=== PATIENT | female | born 1980 | race Caucasian/White ===

== ENCOUNTER 2019-01-21 00:52 | Outpatient (CLI) | payer BC, SELFPAY ==
--- NOTE | 2019-01-21 09:31 | DI.RAD_ITS ---
SYMPTOM/DIAGNOSIS: DYSPHAGIA, R13.13 BARIUM SWALLOW: Fluoroscopy Time: 7 seconds The lateral computer patternmaker view of the neck shows some degenerative change at C 6-7. The PA and lateral chest drivers' cash clerk are unremarkable. The heart size is normal. The lungs are clear. The esophageal peristalsis is normal. Only a few swallows were administered. There is abrupt tapering of the distal esophagus, at the GE junction. Only a minimal amount of barium is seen to pass into the stomach. The findings could be secondary to a severe stricture, spasm or mass. IMPRESSION: Severe narrowing of the distal esophagus.
== END 2019-01-21 01:12 ==
PROVIDERS: PCP Internal Medicine; Visit Provider Internal Medicine
DX: R13.13 Dysphagia, pharyngeal phase (principal); K22.2 Esophageal obstruction
CPT/HCPCS: 74220; J3490

== ENCOUNTER 2019-02-02 12:04 | Day surgery (SDC) | payer BC, SELFPAY ==
--- NOTE | 2019-02-02 07:05 | ENDO_ITS ---
Date of service: 02/02/19 Time of Service: 13:43 Endoscopy Report DATE OF PROCEDURE: 02/02/19 PRE-OP DIAGNOSIS: Abnormal Barium and dysphagia POST-OP DIAGNOSIS: same PROCEDURE: EGD with dilatation SURGEON: Tiffanie Casillas ANESTHESIA: other (General/ ASA 2/Rafi Lanier, RESTORATIVE REHAB AIDE) ESTIMATED BLOOD LOSS: 0 PATHOLOGY: none sent COMPLICATIONS: None DISPOSITION: same day INDICATIONS: Mrs Cisneros is a pleasant 38-year-old female who was seen in the office for abdominal pain and a abnormal barium swallow which showed a stricture in the distal esophagus. Risks, benefits and complications have been reviewed. Complications include but are not limited to bleeding, pain, perforation, sore throat, aspiration, and adverse reaction to the medications. Questions were entertained and answered to their satisfaction and they wished to proceed. No guarantees were given or implied. FINDINGS: Normal appearing esophagus, stomach and duodenum. Tight lower esophageal sphincter with minimal if any peristalsis noted. ? Achalasia GE junction dilated to 20 mm to try and give her some relief temporarily until we can get the manometry done. PROCEDURE DESCRIPTION: After informed consent was obtained the patient was take to the procedure room and placed in a supine position. Monitors were applied and a time out was done. The patients name, date of , procedure type, allergies to medications and metal in their body was reviewed. A bite block was placed and the patient was sedated. Once sedated and comfortable the gastroscope was advanced through the oropharynx which was grossly normal into the esophagus. The proximal and mid- and distal esophagus were normal. There was minimal peristalsis noted and I had to wait a few seconds, applying light pressure with the scope for the GE junction to relax and the scope to be able to pass. The scope was advanced into the stomach and through the pylorus into the 3rd portion of the duodenum. The duodenum was noted to be normal. The scope was retracted back into the stomach and biopsies were done to rule out H. pylori. There were no ulcers. The scope was retro-flexed. The cardia and fundus were noted to be normal. The scope was retracted back into the esophagus and balloon dilatation of the esophagus was done up to 20 mm. The Z line was regular. The GE junction was at 35 cm. The scope was removed and the patient was woken up and taken back to [facility] in stable condition. Follow up: I discussed findings with patient. I will send her to [facility] for a manometry study. I am wondering if she has developed Achalasia.
--- NOTE | 2019-02-02 07:07 | W.PM.DSUDISC ---
Discharge Plan Disposition Patient Disposition: HOME Condition: Good Discharge Details Reason For Visit: DYSPHAGIA Attending Provider: Tiffanie Casillas Primary Care Provider: Anthony Gomez Home Meds and New Rx's Prescriptions: Continued pantoprazole 40 mg tablet,delayed release (DR/EC) 40 mg PO DAILY RF: 0 Mirena 20 mcg/24 hours (5 yrs) 52 mg intrauterine device 1 device IY ONCE RF: 0 metformin 500 mg tablet 500 mg PO DAILY RF: 0 No Action pantoprazole 40 mg tablet,delayed release (DR/EC) 40 mg PO DAILY RF: 0 Discharge Instructions Instructions: Upper Endoscopy (GEN) Additional Instructions: Findings: minimal relaxation of the muscle in the distal esophagus Follow up: after manometry study is done Please call if you develop: fevers >101.5 Nausea or Vomiting Abdominal pain that is not transient DAY SURGERY UNIT POST COLONOSCOPY INSTRUCTIONS 1. Because there will be medication in your system for the next 24 hours, you may feel a little sleepy. Your coordination will be affected. Therefore: a. Do not drive or operate dangerous equipment for 24 hours. b. Do not drink alcohol beverages for 24 hours (not even beer). c. Plan to go home and rest for the day. 2. Generally there are no restrictions on your activity after a day or so has gone by, but you may feel a bit fatigued for a few days. 3 After you arrive home you may have a light meal and return to a normal diet as you can tolerate it without feeling sick to your stomach. 4. After surgery, you may feel pain or discomfort. This should be only transient, but if it persists please contact your doctor. 5. If there are any questions regarding the findings of your procedure, please feel free to contact your doctor. 6. If you are unable to contact your doctor with a problem, contact the hospital at [phone]. 7. Continue all your regular medications unless directed otherwise. I understand the above instructions and have no questions. Signature of Patient or Responsible Adult Escort Date/Time Name of Responsible Adult Escort Signature of Nurse Date/Time Activity:: Activity as Tolerated Diet:: As Tolerated Discharge Orders Discharge Orders: Discharge Order (Routine); Ordered 02/02/19 Ordered By: Tiffanie Casillas DS: Diagnosis Discharge Diagnosis (1) H/O esophagogastroduodenoscopy:
[2019-02-02 12:31] VITALS: BP 125/81; PULSE 89; RESP 18; TEMP 36.6; O2SAT 99
[2019-02-02] MEDS: Lactated Ringers 1,000 ML 80 ML IV (12:49)
[2019-02-02 14:45] VITALS: BP 111/72; PULSE 74; RESP 18; TEMP 36.3; O2SAT 94
== END 2019-02-02 15:06 | disposition home or self-care (01) ==
LOC: SUR 12:04
PROVIDERS: PCP Internal Medicine; Visit Provider Surgery
PROC: 0DJ68ZZ Inspection of Stomach, Via Natural or Artificial Opening Endoscopic (ICD-10-PCS; CPT 43235; principal; 2019-02-02 13:30)
DX: R13.10 Dysphagia, unspecified (principal); R93.3 Abnormal findings on diagnostic imaging of other parts of digestive tract; K22.2 Esophageal obstruction; K21.9 Gastro-esophageal reflux disease without esophagitis
CPT/HCPCS: 43249; 81025

== ENCOUNTER 2019-04-06 10:05 | Day surgery (SDC) | payer BC, SELFPAY ==
[2019-04-06 10:27] VITALS: BP 128/89; PULSE 71; RESP 16; TEMP 36.5; O2SAT 100
[2019-04-06] MEDS: Lactated Ringers 1,000 ML 80 ML IV ×2 (10:48→14:20)
[2019-04-06] MEDS: ceFAZolin 2 GM/50 ML BAG IVPB (13:45)
--- NOTE | 2019-04-06 14:36 | PDOC.DSDIS_ITS ---
Discharge Plan Disposition Patient Disposition: HOME Condition: Good Discharge Details Reason For Visit: Carpal Tunnel Release R Attending Provider: Kelton Neal Primary Care Provider: Anthony Gomez Meds and New Rx's Prescriptions: New ibuprofen 600 mg tablet 600 mg PO Q6H PRN (Reason: pain) Qty: 20 RF: 0 No Action pantoprazole 40 mg tablet,delayed release (DR/EC) 40 mg PO DAILY RF: 0 Mirena 20 mcg/24 hours (5 yrs) 52 mg intrauterine device 1 device IY ONCE RF: 0 metformin 500 mg tablet 500 mg PO DAILY RF: 0 Discharge Instructions Additional Instructions: Elevate R hand above heart level as much as possible overnite tonite. Wiggle fingers R hand 10 times/hour, when awake, to prevent swelling. Keep dressings and splint dry and intact for 48 hours. After 48 hours, remove splint AND dressings and begin to move R wrist. May shower or bathe after you remove dressings in 48 hours. Leave incision uncovered when it is dry and sealed. May use R hand as much as your discomfort allows. Take ibuprofen for pain. Follow up with in 2 weeks. Referrals: Kelton Neal MD [ [facility] STAFF PHYSICIAN] - (f/u in 2 weeks.) Equipment/Supplies: Brace Activity:: Activity as Tolerated Remove Dressings/Wound Care:: 48 hours Shower/Bathe:: 48 hours Diet:: As Tolerated Discharge Orders Discharge Orders: Discharge Order (Routine); Ordered 04/06/19 Ordered By: Kelton Neal DS: Diagnosis Discharge Diagnosis (1) Right carpal tunnel syndrome: Status: Acute
[2019-04-06 14:41] VITALS: BP 119/63; PULSE 80; RESP 16; TEMP 36.9; O2SAT 98
[2019-04-06 14:45] VITALS: BP 120/61; PULSE 72; RESP 15; TEMP 36.9; O2SAT 95
[2019-04-06 14:50] VITALS: BP 118/62; PULSE 74; RESP 11; TEMP 36.9; O2SAT 96
[2019-04-06 15:42] VITALS: BP 125/82; PULSE 62; RESP 17; TEMP 36.3; O2SAT 99
--- NOTE | 2019-04-07 16:44 | ROE_ITS ---
DATE OF PROCEDURE: April 06, 2019 PREOPERATIVE DIAGNOSIS: Carpal tunnel syndrome, right. POSTOPERATIVE DIAGNOSIS: Same. PROCEDURE: Endoscopic carpal tunnel release on the right. ANESTHESIA: General, Pierce Quarles CRNA SURGEON: Kelton Neal M.D. INDICATIONS: This is a 39-year-old white female with a 9 to 10-year history of carpal tunnel syndrom e on the right. Her symptoms have progressed to the point where she's feeling numbness all of the ti me in her right hand. Findings were confirmed with nerve conduction studies. She has not gotten any benefit from night splinting. Carpal tunnel release was recommended to alleviate her pain and numbn ess in her right hand. The risks and complications of the procedure were explained to the patient in detail preoperatively. The patient wished to undergo the endoscopic technique of carpal tunnel rele ase. PROCEDURE: The patient was taken to the Operating Room on 04/06/19. She was placed supine on the op erating table and a general anesthetic was administered. A proximal tourniquet was applied to the [facility] upper arm and then the right hand, wrist and forearm were prepped and draped free in the usual st erile fashion. The right upper extremity was exsanguinated by elevation for two minutes and the tour niquet was inflated to 250 mmHg. An incision was made in line with the proximal flexion crease of th e wrist starting at the flexor carpi radialis tendon and extending to the flexor carpi ulnaris. The incision was carried down to the fascia. Subcutaneous veins were cauterized. A distally-based fasci al flap was then raised to gain access to the carpal canal. A synovial reflector was used to reflect tissue from the undersurface of the volar carpal ligament. A series of obturators were inserted to make room for the endoscope. The Amberly endoscope blade device was then inserted in the carpal canal. Care was taken to position the endoscope on the ulnar side of the canal against the hook of the gavino te. The endoscope was advanced until the distal edge of the volar carpal ligament was clearly visual ized. At this point the trigger was depressed, elevating the blade. The elevator blade was then bro ught from distal to proximal out through the incision, transecting the volar carpal ligament. Roro r scissors were then used to perform a subcutaneous fasciotomy two inches proximal from the incision. A median nerve block was performed with 0.5% Marcaine with an epinephrine solution and the wound ma rgins were infiltrated with 0.5% Marcaine with an epinephrine solution. The incisions were closed wi th two horizontal mattress sutures of #4-0 nylon suture material. The wound was dressed with Xerofor m gauze, sterile gauze 4x4's, wrapped with a 4-inch Kerlix bandage and then wrapped with a 3-inch STEVE bandage and then placed in a commercial cock-up wrist splint. The tourniquet was released. The pat ient's anesthesia was reversed without complications. She was discharged to the recovery room in goo d condition. The patient was discharged home from the Day Surgery Unit when fully recovered from her general anest hesia. She was given instructions to elevate her right hand above heart level as much as possible ov raul. She was encouraged to move her fingers of her right hand ten times an hour while awake to p revent stiffness and swelling. She is to keep the dressings and splint dry and intact for 48 hours. After 48 hours she is to remove the dressings and the splint and begin to move her right wrist. She may shower and get her incision wet after 48 hours. She can leave the incision uncovered when it is dry and sealed. She may use her right hand as much as discomfort allows. She does not desire to ta ke opioids; therefore she was advised to take ibuprofen 600 mg p.o. q6h prn for pain. She should fol low-up with me in two weeks.
== END 2019-04-06 15:58 | disposition home or self-care (01) ==
PROVIDERS: PCP Internal Medicine; Visit Provider Orthopaedic Surgery
PROC: 01N54ZZ Release Median Nerve, Percutaneous Endoscopic Approach (ICD-10-PCS; CPT 29848; principal; 2019-04-06 12:00)
DX: G56.01 Carpal tunnel syndrome, right upper limb (principal)
CPT/HCPCS: 29848; 81025; J0690; J2405; L3908

== ENCOUNTER 2019-12-25 02:56 | Outpatient (CLI) | payer BC, SELFPAY ==
--- NOTE | 2019-12-25 | DI.RAD_ITS ---
EXAM: XR FOOT LT COMPLETE CLINICAL HISTORY: FOOT PAIN LT, M79.672. TECHNIQUE: 2D digital imaging was performed. COMPARISON: No exams were available for comparison FINDINGS: BONES: No acute fracture is present. No bony destructive lesion is seen. There are tiny heel spurs JOINTS: No dislocation present. SOFT TISSUE: Normal. IMPRESSION: Unremarkable radiographs of the left foot. DATA REPOSITORY: RADIATION DOSE DELIVERED:
== END 2019-12-25 03:16 ==
PROVIDERS: PCP Internal Medicine; Visit Provider Internal Medicine
DX: M79.672 Pain in left foot (principal); M77.32 Calcaneal spur, left foot
CPT/HCPCS: 73630

== ENCOUNTER 2020-02-01 16:26 | Outpatient (REF) | payer BC, SELFPAY ==
[2020-02-01 20:48] LABS: HCT 45.1 % (36.0-46.0); HGB 14.9 g/dL (11.2-15.7); MCH 28.9 pg (27.0-33.0); MCV 87.6 fL (80-95); MPV 10.5 fL (8.0-11.0); Platelet Count 282 10^3/uL (130-400); RBC 5.15 10^6/uL (3.93-5.22); RDW 13.2 % (11.7-14.6); RDW-SD 42.6 fL; WBC 10.48 10^3/uL (4.4-10.8)
[2020-02-01 21:04] LABS: Anion Gap 13.6 mmol/L (3-11); BUN 14 mg/dL (7-18); CO2 22.4 mmol/L (21.0-32.0); CREATININE 1.05 mg/dL (0.55-1.02); Calcium 9.3 mg/dL (8.5-10.1); Calculated LDL 84 mg/dL (<100); Chloride 105 mmol/L (98-107); Cholesterol 160 mg/dL (<200); Estimated GFR 58.97 (mL/min/1.73m2); Glucose 92 mg/dL (74-106); HDL Cholesterol 43 mg/dL (40-60); Sodium 141 mmol/L (136-145); Triglyceride 165 mg/dL (<150)
== END 2020-02-01 16:46 ==
LOC: NCHCN 16:26
PROVIDERS: PCP Internal Medicine; Visit Provider Internal Medicine
DX: Z13.220 Encounter for screening for lipoid disorders (principal); Z01.812 Encounter for preprocedural laboratory examination
CPT/HCPCS: 80048; 80061; 85027

== ENCOUNTER 2020-08-23 16:13 | Outpatient (REF) | payer BC, SELFPAY ==
[2020-08-23 21:48] LABS: Anion Gap 13.6 mmol/L (3-11); BUN 16 mg/dL (7-18); CO2 23.4 mmol/L (21.0-32.0); CREATININE 0.9 mg/dL (0.55-1.02); Calcium 9.6 mg/dL (8.5-10.1); Chloride 102 mmol/L (98-107); Glucose 93 mg/dL (74-106); Potassium 4.5 mmol/L (3.5-5.1); Sodium 139 mmol/L (136-145)
== END 2020-08-23 16:14 | disposition home or self-care (01) ==
LOC: NCHCN 16:13
PROVIDERS: PCP Internal Medicine; Visit Provider Internal Medicine
DX: R42 Dizziness and giddiness (principal); K58.0 Irritable bowel syndrome with diarrhea; K22.0 Achalasia of cardia; E28.2 Polycystic ovarian syndrome
CPT/HCPCS: 80048

== ENCOUNTER 2021-02-10 16:45 | Outpatient (REF) | payer BC, SELFPAY ==
[2021-02-10 21:28] LABS: ESR 5 mm/hr (0-20)
[2021-02-10 21:34] LABS: ALT 27 U/L (14-59); AST 19 U/L (15-37); Albumin 4.5 g/dL (3.4-5.0); Alkaline Phosphatase 66 U/L (46-116); Anion Gap 9.6 mmol/L (3-11); BUN 14 mg/dL (7-18); Bilirubin, Total 0.8 mg/dL (0.2-1.0); CO2 26.4 mmol/L (21.0-32.0); CREATININE 0.9 mg/dL (0.55-1.02); Chloride 105 mmol/L (98-107); Creatine Kinase 116 U/L (26-192); Glucose 89 mg/dL (74-106); Potassium 4.2 mmol/L (3.5-5.1); Sodium 141 mmol/L (136-145); Total Protein 7.3 g/dL (6.4-8.2)
[2021-02-12 16:28] LABS: Rheumatoid Factor <8.6 IU/mL (<12.0)
[2021-02-13 10:36] LABS: Lyme Ab w Rflx to Lyme Confirm Negative (Negative)
[2021-02-14 00:01] LABS: Anaplasma phagocytophilum Negative (Negative); B. miyamotoi PCR Negative (Negative); Babesia divergens/MO-1 Negative (Negative); Babesia duncani Negative (Negative); Babesia microti Negative (Negative); Ehrlichia chaffeensis Negative (Negative); Ehrlichia ewingii/canis Negative (Negative); Ehrlichia muris eauclairensis Negative (Negative)
== END 2021-02-10 16:46 | disposition home or self-care (01) ==
LOC: NCHCN 16:45
PROVIDERS: PCP Internal Medicine; Visit Provider Family Medicine
DX: M79.10 Myalgia, unspecified site (principal); K58.0 Irritable bowel syndrome with diarrhea; E28.2 Polycystic ovarian syndrome; K22.0 Achalasia of cardia
CPT/HCPCS: 80053; 82550; 85652; 87798; 86431; 86618

== ENCOUNTER 2021-10-17 19:45 | Outpatient (REF) | payer BC, SELFPAY ==
[2021-10-17 15:01] LABS: Abs Immature Grans 0.02 10^3/uL (0.0-0.06); Absolute Basophil Count 0.05 10^3/uL (0.0-0.2); Absolute Eosinophil Count 0.27 10^3/uL (0.0-0.7); Absolute Lymphocyte Count 2.17 10^3/uL (1.2-3.4); Absolute Monocyte Count 0.45 10^3/uL (0.1-0.8); Absolute Neutrophil Count 4.41 10^3/uL (1.2-6.7); Basophils % 0.7; Eosinophils % 3.7; HCT 40.8 % (36.0-46.0); HGB 13.7 g/dL (11.2-15.7); Immature Grans % 0.3; Lymphocytes % 29.4; MCH 30.2 pg (27.0-33.0); MCHC 33.6 % (32.0-36.0); MCV 90 fL (80-95); MPV 10.4 fL (8.0-11.0); Monocytes % 6.1; Neutrophils % 59.8; Platelet Count 342 10^3/uL (130-400); RBC 4.54 10^6/uL (3.93-5.22); RDW 13.5 % (11.7-14.6); RDW-SD 44.4 fL; WBC 7.37 10^3/uL (4.4-10.8)
[2021-10-17 15:07] LABS: ALT 26 U/L (14-59); AST 24 U/L (15-37); Albumin 4.5 g/dL (3.4-5.0); Alkaline Phosphatase 56 U/L (46-116); Anion Gap 10.6 mmol/L (3-11); BUN 14 mg/dL (7-18); Bilirubin, Total 0.6 mg/dL (0.2-1.0); CO2 23.4 mmol/L (21.0-32.0); Calcium 9.2 mg/dL (8.5-10.1); Chloride 104 mmol/L (98-107); Glucose 84 mg/dL (74-106); Potassium 4.8 mmol/L (3.5-5.1); Sodium 138 mmol/L (136-145); Total Protein 7.2 g/dL (6.4-8.2)
[2021-10-17 15:10] LABS: ESR 5 mm/hr (0-20)
[2021-10-18 12:33] LABS: IgA 126 mg/dL (85-499); Interpretation (See Note); Tissue Transglutaminase IgA <1.2 U/mL (<4.0)
== END 2021-10-17 19:46 | disposition home or self-care (01) ==
LOC: NCHCN 19:45
PROVIDERS: PCP Internal Medicine; Visit Provider Family Medicine
DX: K52.9 Noninfective gastroenteritis and colitis, unspecified (principal); M79.7 Fibromyalgia
CPT/HCPCS: 80053; 82784; 83516; 85652; 87329; 87493; 83630; 83993; 85025; 87177

== ENCOUNTER 2021-10-19 08:17 | Outpatient (REF) | payer BC, SELFPAY ==
[2021-10-19 10:35] LABS: C Diff PCR Negative (Negative)
[2021-10-21 19:30] LABS: Calprotectin <50.0 mcg/g
== END 2021-10-19 08:18 | disposition home or self-care (01) ==
LOC: NCHCN 08:17
PROVIDERS: PCP Internal Medicine; Visit Provider Family Medicine
DX: K52.89 Other specified noninfective gastroenteritis and colitis (principal); M79.7 Fibromyalgia
CPT/HCPCS: 87329; 87493; 83630; 83993; 87177

== ENCOUNTER 2021-11-10 11:27 | Outpatient (REF) | payer BC, SELFPAY ==
--- NOTE | 2021-11-10 09:45 | SKI_PTH ---
PATIENT: Sugey Rodney I LOC: [facility]#:[id number] AGE/SX: 41/F ROOM: RE11/10/[address]: Sriram Lofton : 1980 BED: DIS: 11/10/2021 SPEC #: [id number] RECD: 11/10/21 15:51 STATUS: JOSIAS REQ #: [id number] SARINA: 11/10/21 09:[address]: Sriram Lofton DEPT: Surgical Specimen RECD BY: Jyoti Cardenas ENTERED: 11/10/21 15:51 SP TYPE: RICARDO MAC DR: Anthony Gomez Tissues: 1 - SKIN BIOPSY(SHAVE/PUNCH) Procedures: SKIN LEVEL 4 Comments: [id number]
--- OUTSIDE RECORDS SUMMARY | 2021-11-10 11:30 | XMS_ITS | Encounter Summary ---
:1980 Author Organization [facility] Address [address] [place] [address] Care Team Providers Name Role Phone Anthony Gomez MD Primary Care Provider Encounter Details Date Type Department Care Team Description 03/31/2020 Results Only [facility] - [facility] Christian Mendoza MD Lab - Main [place] [address] [facility] [address] [place] [address] [place], [place] [id number] [phone] Social History Tobacco Use Types Packs/Day Years Used Date Never Smoker Smokeless Tobacco: Never Used Alcohol Use Standard Drinks/Week Comments Never 0 (1 standard drink = 0.6 oz pure alcoho l) Alcohol Habits Answer Date Recorded How often do you have a drink containing alcohol? Never 03/03/2020 How many drinks containing alcohol do you have on a typical Not asked day when you are drinking? How often do you have six or more drinks on one occasion? No t asked Comment: Not asked Sex Assigned at Date Recorded Female 01/24/2020 16:07 EDT COVID-19 Exposure Response Date Recorded In the last month, have you been in contact with No / Unsure 03/03/2020 9:32 EDT someone who was confirmed or suspected to have Coronavirus / COVID-19? documented as of this encounter Functional Status Functional Status Response Date of Assessment Are you deaf or do you have serious difficulty hearing? No 03/03/2020 Are you blind or do you have serious difficulty seeing, No 03/03/2020 even when wearing glasses? Do you have serious difficulty walking or climbing No 03/03/2020 stairs? (5 years old or older) Do you have difficulty dressing or bathing? (5 years old No 03/03/2020 or older) Because of a physical, mental, or emotional condition, do No 03/03/2020 you have difficulty doing errands alone such as visiting a doctor's office or shopping? (15 years old or older) Cognitive Status Response Date of Assessment Because of a physical, mental, or emotional condition, do No 03/03/2020 you have serious difficulty concentrating, remembering, or making decisions? (5 years old or older) documented as of this encounter Plan of Treatment Not on filedocumented as of this encounter Procedures Procedure Name Priority Date/Time Associated Comments Diagnosis LIPASE - [facility] Routine 03/31/2020 18:10 Results fo r this EDT procedure are i n the results section. COMPLETE BLOOD COUNT Routine 03/31/2020 18:10 Res ults for this WITH DIFFERENTIAL EDT procedure are in (AUTO) the results section. COMPREHENSIVE Routine 03/31/2020 18:10 Results fo r this METABOLIC PANEL (CMP) EDT proced ure are in the results section. documented in this encounter Results LIPASE - [facility] (03/31/2020 18:10 EDT) Pathologist Sig nature LIPASE [facility] 89 <251 U/L [facility] Specimen Performing Organization Address City/State/ZIP Code Phon e Number [facility] [address] [place] [address] COMPREHENSIVE METABOLIC PANEL (CMP) (03/31/2020 18:10 EDT) ALBUMIN - [facility] 4.9 3.4 - 4.9 [facility] g/dL [facility] ALKALINE 107 38 - 126 U/L [facility] PHOSPHATASE [facility] BILIRUBIN TOTAL 0.7 0.2 - 1.3 [facility] mg/dL [facility] BUN - [facility] 11 10 - 26 mg/dL [facility] CALCIUM - [facility] 9.9 8.5 - 10.5 [facility] mg/dL [facility] Chloride 104 96 - 110 [facility] mmol/L [facility] CO2 Total 24 22 - 32 mEq/L [facility] CREATININE 0.79 0.52 - 1.04 [facility] mg/dL [facility] eGFR >60 [facility] Comment: [facility] Chronic renal impairment is defined as GFR <60 Multiply result by 1.210 for patients . eGFR calculated using the IDMS-traceable MDRD Study Equation. ??(effective 04/19/2014) Anion Gap 12 0 - 18 [facility] GLUCOSE - [facility] 87 70 - 100 [facility] mg/dL [facility] Potassium 4.1 3.5 - 5.0 [facility] mEq/L [facility] Sodium 140 136 - 145 [facility] mEq/L [facility] TOTAL PROTEIN - 7.7 6.2 - 8.2 [facility] gm/dL [facility] SGOT/AST - [facility] 24 14 - 36 U/L [facility] SGPT/ALT - [facility] 16 0 - 35 U/L [facility] Specimen Performing Organization Address City/State/ZIP Code Phon e Number [facility] [address] [place] [address] (ABNORMAL) COMPLETE BLOOD COUNT WITH DIFFERENTIAL (AUTO) (03/31/2020 18:10 EDT) Pathologist Sig nature Gran # 5.7 2.2 - 8.85 [facility] 10e3/uL [facility] BASO # - [facility] 0.07 0.01 - 0.11 [facility] 10e/uL [facility] BASO % - [facility] 1 0 - 2 % [facility] EOS # - [facility] 0.34 0.03 - 0.61 [facility] 10e3/ul [facility] EOS % - [facility] 4 0 - 5 % [facility] GRAN % - [facility] 57.8 40 - 80 % [facility] HEMATOCRIT - [facility] 45.4 (H) 34.9 - 44.4 % [facility] HEMOGLOBIN - [facility] 15.0 11.6 - 15.2 [facility] g/dl [facility] IG# - [facility] 0.03 0 - 0.7 10e3/uL [facility] IG% - [facility] 0.3 0 - 0.9 % [facility] LYMPH # - [facility] 3.1 1.09 - 3.3 [facility] 10e3/ul [facility] LYMPH% - [facility] 31.5 20 - 40 % [facility] MEAN CORPUSCULAR HGB 28.2 26.7 - 33.3 pg [facility] ME D - [facility] MEAN CORPUSCULAR HGB 33.0 32.1 - 35.9 [facility] CONC - [facility] g/dL [facility]ENTER [facility] MEAN CELL VOLUME - 85.3 81 - 98 fl [facility] MONO # - [facility] 0.6 0.1 - 0.8 [facility] 10e3/uL [facility] MONO% - [facility] 6.2 0 - 12 % [facility] PLATELET COUNT 299 141 - 377 [facility] 10e3/ul [facility] RED BLOOD COUNT - 5.32 (H) 3.86 - 5.04 [facility] 10e3/ul [facility] RED CELL DISTRI WIDTH 13.2 <14.7 % [facility] WHITE BLOOD COUNT - 9.8 4.0 - 12.4 [place] [id number]/[facility] Specimen Performing Organization Address City/State/ZIP Code Phon e Number [facility] [address] [place] [address] documented in this encounter Visit Diagnoses Not on filedocumented in this encounter Care Teams Marquetry Worker Relationship Specialty Start Date End Date Anthony Gomez MD PCP - General 03/10/19 [address] [place] [address] documented as of this encounter
--- OUTSIDE RECORDS SUMMARY | 2021-11-10 11:30 | XMS_ITS | Encounter Summary ---
:1980 Author Organization [facility] Address [address] [place] [address] Care Team Providers Name Role Phone Anthony Gomez MD Primary Care Provider Reason for Visit Reason Onset Date Comments Follow-up 04/01/2020 urgent follow up fro m ED last night Encounter Details Date Type Department Care Team Description 04/01/2020 Telephone [facility] - Olga Christian MD Follow-up (urgent [facility] [address] follow up from ED last [address], [address] night) [place] [address] [place], [place] [phone] Social History Tobacco Use Types Packs/Day Years [...] or older) documented as of this encounter Miscellaneous Notes Telephone Encounter - Lorraine Kaur RN - 04/01/2020 0907 EDT Pt was scheduled today at 11:00 elephone Encounter - Jie Christian MD - 04/01/2020 0901 EDT See if 11 works elephone Encounter - Lorraine Kaur RN - 04/01/2020 0852 EDT Jie, This pt should probably be seen today? Where in your/[facility] schedule should she be placed. elephone Encounter - Obdulia Martinez - 04/01/2020 0837 EDT Pt seen in the ED last night, was told to call us this AM for an URGENT appointment. She had a c.t. scan and her IUD has perforated her uterus documented in this encounter Plan of Treatment Not on filedocumented as of this encounter Visit Diagnoses Not on filedocumented in this encounter Care Teams Clerical Manager Relationship Specialty Start Date End Date Anthony Gomez MD PCP - General 03/10/19 [address] [place] [address] documented as of this encounter
--- OUTSIDE RECORDS SUMMARY | 2021-11-10 11:30 | XMS_ITS | Encounter Summary ---
:1980 Author Organization [facility] Address [address] [place] [address] Care Team Providers Name Role Phone Anthony Gomez MD Primary Care Provider Encounter Details Date Type Department Care Team Description 01/21/2020 Orders Only [facility] - Kali Osorio preprocedure screening [address] laboratory testing for [address] [place] [address] COVID-19 (Primary Dx) [place] [address] [facility] [phone] [address], [address] [place] [address] (Wo rk) Social History Tobacco Use Types Packs/Day Years Used Date Never Smoker Smokeless Tobacco: Never Used Alcohol Habits Answer Date Recorded How often do you have a drink containing alcohol? Never 03/03/2020 How many drinks containing alcohol do you have on a typical Not asked day when you are drinking? How often do you have six or more drinks on one occasion? No t asked Comment: Not asked Sex Assigned at Date Recorded Female 01/24/2020 16:07 EDT documented as of this encounter Functional Status Functional Status Response Date of Assessment Because of a physical, mental, or emotional condition, No 12/02/2014 does this person have difficulty doing errands alone such as visiting a doctor's office or shopping? Cognitive Status Response Date of Assessment Because of a physical, mental, or emotional condition, No 12/02/2014 does this person have serious difficulty concentrating, remembering, or making decisions? documented as of this encounter Plan of Treatment Not on filedocumented as of this encounter Visit Diagnoses Diagnosis Encounter for preprocedure screening lab oratory testing for COVID-19 - Primary documented in this encounter Care Teams Stock Sorter Relationship Specialty Start Date End Date Anthony Gomez MD PCP - General 03/10/19 [address] [place] [address] documented as of this encounter
--- OUTSIDE RECORDS SUMMARY | 2021-11-10 11:30 | XMS_ITS | Encounter Summary ---
:1980 Author Organization [facility] Address [address] [place] [address] Care Team Providers Name Role Phone Anthony Gomez MD Primary Care Provider Encounter Details Date Type Department Care Team Description 03/31/2020 Results Only Imaging [facility] - Basilio Mendoza, [facility] Radiology Resul ts [address] [facility] [address] [place], [place] [address] [place] [address] [phone] (Wo rk) Social History Tobacco Use Types [...] encounter Procedures Procedure Name Priority Date/Time Associated Diagnosis Comme nts EKG 12-LEAD 03/31/2020 20:21 Results for this EDT procedure are i n the results section. CT ABDOMEN PELVIS W 03/31/2020 19:41 Resu lts for this CONTRAST EDT procedure are i n the results section. documented in this encounter Results EKG 12-LEAD (03/31/2020 20:21 EDT) Specimen Narrative [facility] - 020 20:21 EDT ? [facility] ? Test Date: ?2020-03-31 20:21:21 Pat Name: ? SUGEY SOSA ? Department: ?Room: ? Gender: ? F ?Equipment Application Specialist: ?? AH : ?1980 ? Requested By: Order Number: ?Reading MD: ?? Efrain Bueno MD ? Measurements Intervals ?Center ? Rate: ? 72 ? P: ?39 NC: ? 154 ?QRS: ?2 QRSD: ? 82 ? T: ?7 QT: ? 404 ? QTc: ?442 ? Interpretive Statements Normal sinus rhythm Low voltage QRS Borderline ECG No previous ECG available for comparison Electronically Signed On 04-01-2020 8:45 :20 EDT by Efrain Bueno MD [email or web address] Procedure Note Efrain Bueno MD - 04/01/2020 [facility] Test Date: 2020-03-31 20:21:21 Pat Name: SUGEY SOSA Department: Room: Gender: F Equipment Application Specialist: MOHAMUD : 1980 Requested By: Order Number: Reading MD: Efrain Bueno MD Measurements Intervals Center Rate: 72 P: 39 NC: 154 QRS: 2 QRSD: 82 T: 7 QT: 404 QTc: 442 Interpretive Statements Normal sinus rhythm Low voltage QRS Borderline ECG No previous ECG available for comparison Electronically Signed On 04-01-2020 8:45 :20 EDT by Efrain Bueno MD [email or web address] Performing Organization Address City/State/ZIP Code Phon e Number [facility] [address] [place] [address] CT ABDOMEN PELVIS W CONTRAST (03/31/2020 19:41 EDT) Specimen Narrative [facility] - 03/31/2020 19:41 EDT ? AN ADDENDUM IS INCLUDED ON THIS REPORT ? ADDENDUM ? Results were personally conveyed to Christian Mendoza on03/31/2020 ? 8:47 PM EDT. ? ADDEND UM SIGNED IN OTHER VENDOR SYSTEM 03/31/2020 ?Reported B y: Elidia Ko MD ?Transcribe d: 03/31/2020 (2049) HIS.VRAD ?REPORT ? EXAM: CAT SCAN/ABDOMEN PELVIS WIT H CONTRA EX. D/ (1924) ? CLINICAL INFORMATION: ? severe sudden abd pain s/p heller myotomy ? PROCEDURE INFORMATION: ? Exam: CT Abdomen And Pelvis With Contrast ? Exam date and time: 03/31/2020 6: 47 PM ? Age: 40 years old ? Clinical indication: Other: Unkno wn; Prior surgery; Surgery ? type: Heller myotomy (gastric byp ass), x2, iud; ? Additional info: Severe sudden ab d pain S/P heller myotomy ? TECHNIQUE: ? Imaging protocol: Computed tomogr aphy of the abdomen and pelvis ? with intravenous contrast. ? Radiation optimization: All CT sc ans at this facility use at ? least one of these dose optimizat ion techniques: automated ? exposure control; mA and/or kV ad justment per patient size ? (includes targeted exams where do se is matched to clinical ? indication); or iterative reconst ruction. ? Contrast material: OMNI 350; Cont rast volume: 100 ml; Contrast ? route: INTRAVENOUS (IV); ? COMPARISON: ? US OB LEVEL 2 FOLLOW UP 09/30/2018 9:50 AM ? FINDINGS: ? Liver: Normal. No mass. ? Gallbladder and bile ducts: Beckie l. No calcified stones. No ? ductal dilation. ? Pancreas: Normal. No ductal dilat ion. ? Spleen: Normal. No splenomegaly. ? Adrenals: Normal. No mass. ? Kidneys and ureters: Bilateral we ll-defined tiny renal ? hypodensities likely represent cy sts. No hydronephrosis. ? Stomach and bowel: Prior Heller m yotomy. Air-fluid level noted ? within the stomach. No evidence o f small bowel obstruction or ? mucosal thickening. Fluid is pres ent throughout the colon. ? Appendix: The appendix is normal. ? Intraperitoneal space: Trace cul- de-sac free fluid. No evidence ? of intraperitoneal free air. ? Vasculature: Unremarkable. No abd ominal aortic aneurysm. ? Lymph nodes: Unremarkable. No enl arged lymph nodes. ? Urinary bladder: Unremarkable as visualized. ? PAGE 1 ? Ayala d Report ? (CONTINUED) ? AN ADDENDUM IS INC LUDED ON THIS REPORT ? Reproductive: Abnormal placement of the IUD with full-thickness ? posterior myometrial perforation by one horizontal arm. ? Bilateral ovaries are grossly nor mal. ? Bones/joints: Unremarkable. No ac [place] fracture. ? Soft tissues: Unremarkable. ? IMPRESSION: ? 1. Prior Heller myotomy. Air-flui d level noted within the ? stomach. ? 2. Fluid is present throughout th e colon compatible with ? nonspecific diarrheal process.. ? 3. Abnormal placement of the IUD with full-thickness posterior ? myometrial perforation by one hor izontal arm. ? REPORT SIGNED IN OTHER VENDOR SYSTEM 03/31/2020 ?Reported B y: Elidia oK MD ? CC: ? Transcribed Date/Time: 03/31/2020 (1940) ? Parts Classifier: ? Printed Date/Time: 03/31/2020 () ? PAGE 2 ? Ayala d Report ? Procedure Note Elidia Ko MD - 03/31/2020 AN ADDENDUM IS INCLUDED ON THIS REPO RT ADDENDUM Results were personally conveyed to Christian Crane on03/31/2020 8:47 PM EDT. ADDENDUM SIGNED IN OTHER VENDOR SYS TEM 03/31/2020 Reported By: Elidia Ko MD Transcribed: 03/31/2020 (2049) REPORT EXAM: CAT SCAN/ABDOMEN PELVIS WITH CONT RA EX. D/ (1923) CLINICAL INFORMATION: severe sudden abd pain s/p heller myoto my PROCEDURE INFORMATION: Exam: CT Abdomen And Pelvis With Contra st Exam date and time: 03/31/2020 6:47 PM Age: 40 years old Clinical indication: Other: Unknown; Pr ior surgery; Surgery type: Heller myotomy (gastric bypass), x2, iud; Additional info: Severe sudden abd pain S/P heller myotomy TECHNIQUE: Imaging protocol: Computed tomography o f the abdomen and pelvis with intravenous contrast. Radiation optimization: All CT scans at this facility use at least one of these dose optimization te chniques: automated exposure control; mA and/or kV adjustme nt per patient size (includes targeted exams where dose is matched to clinical indication); or iterative reconstructio n. Contrast material: OMNI 350; Contrast v olume: 100 ml; Contrast route: INTRAVENOUS (IV); COMPARISON: US OB LEVEL 2 FOLLOW UP 09/30/2018 9:50 AM FINDINGS: Liver: Normal. No mass. Gallbladder and bile ducts: Normal. No calcified stones. No ductal dilation. Pancreas: Normal. No ductal dilation. Spleen: Normal. No splenomegaly. Adrenals: Normal. No mass. Kidneys and ureters: Bilateral well-def ined tiny renal hypodensities likely represent cysts. N o hydronephrosis. Stomach and bowel: Prior Heller myotomy . Air-fluid level noted within the stomach. No evidence of smal l bowel obstruction or mucosal thickening. Fluid is present th roughout the colon. Appendix: The appendix is normal. Intraperitoneal space: Trace cul-de-sac free fluid. No evidence of intraperitoneal free air. Vasculature: Unremarkable. No abdominal aortic aneurysm. Lymph nodes: Unremarkable. No enlarged lymph nodes. Urinary bladder: Unremarkable as visual ized. PAGE 1 Signed Report (CONTINUED) AN ADDENDUM IS INCLUDED ON THIS REPO RT Reproductive: Abnormal placement of the IUD with full-thickness posterior myometrial perforation by one horizontal arm. Bilateral ovaries are grossly normal. Bones/joints: Unremarkable. No acute fr acture. Soft tissues: Unremarkable. IMPRESSION: 1. Prior Heller myotomy. Air-fluid leve l noted within the stomach. 2. Fluid is present throughout the colo n compatible with nonspecific diarrheal process.. 3. Abnormal placement of the IUD with f ull-thickness posterior myometrial perforation by one horizonta l arm. REPORT SIGNED IN OTHER VENDOR SYSTEM 03/31/2020 Reported By: Elidia Ko MD CC: Transcribed Date/Time: 03/31/2020 (1940 ) Parts Classifier: Printed Date/Time: 03/31/2020 (2050) PAGE 2 Signed Report Performing Organization Address City/State/ZIP Code Phon e Number [facility] documented in this encounter Visit Diagnoses Not on filedocumented in this encounter Care Teams Enterprise Account Executive Relationship Specialty Start Date End Date Anthony Gomez MD PCP - General 03/10/19 [address] [place] [address] documented as of this encounter
--- OUTSIDE RECORDS SUMMARY | 2021-11-10 11:30 | XMS_ITS | Encounter Summary ---
:1980 Author Organization [facility] Address [address] [place] [address] Care Team Providers Name Role Phone Anthony Gomez MD Primary Care Provider Encounter Details Date Type Department Care Team Description 02/25/2020 Hospital Encounter [facility] Pre-Surgical Testing [address] [place] [address] Anesthesia Record Procedure Summary Procedure Name Responsible Anesthesia Start Anesthesia Stop Anesthesiologist Time Time Laparoscopic Princess Head MD 03/03/20 1137 0 1625 myotomy (N/A Abdomen) Events Date Time Event Comment 03/03/2020 1137 An Start The patient was re-evaluated immediately before moderate or deep sedation use, before anesthesia induction, or be fore the anesthesia procedure. 1139 An Start Data 1143 An Induction The patient was reevaluated immediately before moderate or deep sedation use and before anesthesia induction. 1149 An Intubation 1154 Raul Sustained desatu ration following intubation. Breaths sounds bilateral . Pulse ox switched from left to right hand. Mult iple recruitment breaths delivered at high flow 100 % oxygen. OG tube passed and suctioned with e ventual recovery. 1159 Anesthesia Ready 1159 IV Placed 1523 Primary Handoff Primary Anesthes ia Provider relieved. Anesthesia care handoff inv olved joint review of the surgical site and planned procedure, significant past medical history, intraop erative course including but not limited to airwa y management, anesthetic maintenance, mon itors, IV access, fluid management, and postoperativ e plan. 1611 An Extubation 1611 Raul Spontaneous vent ilation resumed Neuromuscular blockade reverse d Full TOF and sustained tetanus Oral pharynx suc tioned Extubated awake at end inspiration Oral pharynx suctioned immediately after extubation O2 by facemask transitioned to nasal canula HOB eleva flora O2 for transport to receiving unit Stable for transport ETT noted to be filled with thick green / yellow secretions. president + publisher aware, will monitor postop. 1620 an stop data 1625 Handoff to RN I completed my h andoff to the receiving nurse during which we: 1. Karthikeyan ntified the patient 2. Identified the responsible provider 3. Reviewed the pertinent medical history 4. Discussed the surgical course 5. Reviewed intra-o p anesthesia management and issues during anesthesi a 6. Set expectations for post-procedure p eriod 7. Allowed opportunity for questions and ac knowledgement of understanding. 1625 An Stop No medications on file. Agents No agents on file. Blood No blood administrations on file. Lines, Drains, and Airways Type Details Placement Removal Wound 03/03/20; 1300; Incision; 03/03/20 1300 by Abdomen; 5 Laproscopic Cehlsey Daniel RN Port Sites; N; Full thickness Peripheral IV 03/03/20; 1040; 20; 1.25; 03/03/20 1040 by 03/04 1003 by Protect IV Plus; Left, Jeanine Montemayor RN Sharpe, Jamie, RN Posterior; Forearm; Documenting on behalf of someone else (enter name) (Cortney Ureña RN); 1; Intradermal, 1% Lido; 3.15% Chlorhexidine with IPA; 03/04/20; 1003; Discharged; No complications, Catheter intact, Dressing applied Peripheral IV 03/03/20; 1112; 20; Bard 03/03/20 1112 by 1116 by Power [place]; Right; Jadyn Morales, Ramona Chew, RN Antecubital; Inserted by RN; 2 (Johnson Novak RN); 3.15% Chlorhexidine with IPA; 03/03/20; 1116 Peripheral IV 03/03/20; 1159 (created 03/03/20 1159 by Jack, 1002 by via procedure MD Andi Anthony Jamie , funeral car chauffeur); 18; Right; Hand; wrist; In OR by ; (first attempt in right hand); (under general anesthesia); 03/04/20; 1002; Discharged; No complications, Catheter intact, Dressing applied Urethral Catheter 03/03/20; 1200; Inserted 03/03/20 1200 by 02/15 01/03 1606 by by RN; Selected surgical Erin Hendricks RN Wa goner, Brittany, procedures/Epidural; RN Non-latex, Double-lumen; 16 fr; 10 ml; Yes; 03/03/20; 1606 Non-Surgical Airway 03/03/20; 1244 (created 03/03/20 1244 by Jack , 03/03/20 1611 by via procedure MD Marlen Anthony Don W, documentation); 03/03/20; ENVIRONMENTAL SYSTEMS COORDINATOR 1611 documented in this encounter Social History Tobacco Use Types Packs/Day Years [...] 16:07 EDT documented as of this encounter Last Filed Vital Signs Vital Sign Reading Time Taken Comments Blood Pressure - - Pulse - - Temperature - - Respiratory Rate - - Oxygen Saturation - - Inhaled Oxygen Concentration - - Weight 97.2 kg (214 lb 3.9 oz) 02/25/2020 1339 EDT Height 167.9 cm (5' 6.1) 02/25/2020 1339 EDT Body Mass Index 34.48 02/25/2020 1339 EDT documented in this encounter Functional Status Functional Status Response [...] making decisions? documented as of this encounter Medications at Time of Discharge Medication Sig Dispensed Refills Start Date End Date acetaminophen (TYLENOL) Take 20.3 mL by mouth 0 0 03/04/2020 325 mg/10.15 mL solution every 4 hours as needed for Pain. ibuprofen (ADVIL;MOTRIN) Take 20 mL by mouth 0 100 mg/5 mL suspension every 6 hours. ondansetron (ZOFRAN-ODT) Take 1 Tab by mouth 15 Tab 2 4 mg disintegrating every 8 hours as tablet needed for Nausea. levonorgestrel (MIRENA) 1 Each by 0 1 20 mcg/24 hours (5 yrs) intrauterine route 52 mg IUD once. nitroGLYCERIN Place 0.4 mg under 0 (NITROSTAT) 0.4 mg SL the tongue every 5 tablet minutes. For achalasia oxyCODONE (ROXICODONE) 5 Take 5 mL by mouth 60 mL 0 04/01/2020 mg/5 mL solution every 6 hours as needed for Pain. Daily Max: 20 mg documented as of this encounter Discharge Disposition Disposition Code Departure Means Destination Home or Self Care documented in this encounter Progress Notes Josette Novak RN - 02/25/2020 1340 EDT COVID 19 Screening Perioperative at time of PAT Please document by exception (only check those that apply). Have you had any of the following symptoms recently? no Yes Chronic ? Cough Shortness of breath or difficulty breathing Fever Chills Fatigue Muscle or body aches Severe Headache New loss of taste or smell Sore throat Congestion or runny nose Rash Nausea, vomiting, or diarrhea (rare in adults. More common in children) Please elaborate if yes: If a chronic symptom is reported use your judgement if an anesthesia review is needed. Have you been in close contact with someone who has been diagnosed with Covid 19? no (close contact, within 6 feet of any person known to have Coronavirus in the past 14 days) If past COVID + test results in chart: ??? Complete call, Place for Anesthesia Review ??? Do not give COVID+ DOS arrival instructions unless anes review deems necessary Negative COVID screen: Please file negative COVID screening under a progress note Negative screening is no symptoms or patient reporting a chronic symptom that does not need an anesthesia review Positive COVID screen: Patient answers yes to the question(s) and it is not a chronic symptom RN to flag this chart for anesthesia review and complete call Please file positive COVID screening under a PAT note If patient develops any of these symptoms between now and their surgery date instruct them to call us back at [phone] to report symptoms (If patient is in Surgical Admissions and answers yes, please notify Surgery and Anesthesia team). Follow proper precautions- yellow mask to patient/family. [place]: Visitor Policy: OP- one non-sick escort in waiting room, no visitors/escort in PreOp, one visitor in PACU for 10 mins at end of recovery Exceptions: Child-1 parent, special needs- 1 caregiver For safety concerns on ride home: second parent or caregiver may come to hospital but will have to wait in cell phone lot IP- One non-sick visitor/escort in waiting room, no visitors/escort in PreOp, one visitor in PACU for 10 mins at end of recovery. One designated visitor is allowed to visit the patient on the in patient unit. Pediatric patient: ??? Both parents can come with child DOS, one is allowed with child in PreOp/PACU, one has to wait in the waiting room ??? Due to COVID 19 no parents are allowed to go back to OR. ??? Explain IV/Mask induction. IV or mask will be available for pedi patients who are asymptomatic and test COVID negative. ??? If parent declines or no test results, Pt will get IV in PreOp, except PE tubes. For State tracking purposes, the parents of these children will be asked to consent to having their child COVID tested under anesthesia. ??? Unsedated children will be allowed one parents in the OR room for support. ??? RN to provide education on IV's and request Emla to be placed (RX from PCP) prior to coming in with them. ? ? Patient > 1 yo: Emla takes one hour to work, place quarter size amount on 4 places ? top ofhands and inner elbow, cover with tegaderm or saran wrap. Children under age of 16 y.o. are not permitted. Only ADA service animals are permitted into the hospital. All other animals, including previously approved therapy/support animals, are not allowed at this time. (No animals will be allowed into Preop,OR, or PACU) Visitor Policy Solange German: - One non-sick escort/visitor in waiting room, no visitors/escort in PeriOp - Same exceptions apply as main campus: children and special needs - Visitors/rides home that are not in waiting room should be within 15 mins away - Visitors must have mask for pickup documented in this encounter OR Notes Preprocedure Instructions - Josette Novak RN - 02/25/2020 1340 EDT Sugey Jackson Amelia has been instructed as follows regarding medication administration for the day of the scheduled procedure. Date of Surgery: 03/03/20 Instructions for Taking Medications Day of Surgery Medication Sig Last Dose Hold DOS Take DOS levonorgestrel (MIRENA) 20 mcg/24 hours (5 yrs) 52 mg IUD 1 Each by intrauterine route once. Yes nitroGLYCERIN (NITROSTAT) 0.[address] 0.4 mg under the tongue every 5 minutes. For achalasia Yes documented in this encounter Miscellaneous Notes PAT Note - Princess Cortes MD - 02/25/2020 1340 EDT Pt reports bad reaction to gen anes in the past. Last surgery was Mar 2019. Higher doses of medication was needed, didn't last as long. Pt gets fever, chills, pain, bruising for1 wk post op. S/s start 2-4 days post op. Surgery was a carpal tunnel release under general per Pt at [facility]. Pt reports this happens to her sister as well. Pt reports with epidural: medication dosing needed to be doubled, Pt reports still feeling everything and then needed to be put to sleep. October 2018 ++++++++++++++++++++++ Patient chart reviewed. 40 year old female with a history of achalasia, anxiety, back pain, polycystic ovarian syndrome, and obesity who presents for laparoscopic heller myotomy. Patient reports increased anesthetic requirements with prior procedures (carpel tunnel under GA and epidural requiring conversion to general). Unclear from the note what her bad reaction was; will require further investigation on the day of surgery. Anesthesia records from [facility] will be requested. No additional testing is necessary at this time. Standard perioperative COVID testing. Final anesthesia plan to be determined by the anesthesia team on the day of surgery. Princess Cortes MD documented in this encounter Plan of Treatment Not on filedocumented as of this encounter Visit Diagnoses Not on filedocumented in this encounter Discontinued Medications Medication Sig Discontinue Reason Start Date End Date METFORMIN HCL (METFORMIN Take 500 mg by Therapy completed 02/25/2020 ORAL) mouth 2 times daily. traMADol (ULTRAM) 50 mg Take 1 Tab by Therapy completed 10/28/2014 02/25/2020 tablet mouth every 6 hours as needed for Pain Daily Max: 200 mg spironolactone (ALDACTONE) Take 50 mg by Therapy completed 02/25/2020 50 mg tablet mouth daily pantoprazole (PROTONIX) 40 Take 40 mg by Therapy completed 02/25/2020 mg tablet mouth 2 times daily. documented as of this encounter Historical Medications This list may reflect changes made after this encounter. Medication Sig Dispensed Refills Start Date End Date nitroGLYCERIN (NITROSTAT) Place 0.4 mg under 0 03/04/2020 0.4 mg SL tablet the tongue every 5 minutes. For achalasia added in this encounter Care Teams Edge Baster Relationship Specialty Start Date End Date Anthony Gomez MD PCP - General 03/10/19 [address] [place] [address] documented as of this encounter
--- OUTSIDE RECORDS SUMMARY | 2021-11-10 11:30 | XMS_ITS | Encounter Summary ---
:[address] [facility] Address [address] [place] [address] Care Team Providers Name Role Phone Anthony Gomez MD Primary Care Provider Encounter Details Date Type Department Care Team Description 02/28/[address] [facility] Anthony Gomez MD Lab - [place] [address] [place] [address] [place], [place] [id number] [phone] Social History Tobacco Use Types Packs/Day Years [...] Name Priority Date/Time Associated Diagnosis Comme nts COVID-19 TESTING Routine 02/28/2020 10:15 EDT Res ults for this procedure are i n the results section. documented in this encounter Results COVID-19 TESTING (02/28/2020 10:15 EDT) Performing Lab [place] [facility] () [facility] Comment: [facility] Please indicate the Triage Tier2 Test performed or referred by The [address], [place] [address] COVID-19 rt-PCR Not Detected Negative [facility] Result Comment: [facility] This test has not been FDA cleared or approved. This t est has been authorized by FDA under an EUA for use by authorized laboratories. This test has been authorized only for detection of nucleic acid from 2019-nCoV, not for any other viruses or pathogens. This test is only authoriz ed for the duration of the declaration that circumstances exist justifying the authorization of emergency use of in vitro diagnostic tests for detection and/or diagnosis of 2019-nCoV under section 564(b)(1) of Act, 21 U.S.C ? 360bbb-3(b) (1), unless the authorization is terminate d or revoked sooner. Negative results do not preclude 2019-nCoV infection a nd should not be used as the sole basis for treatment or other patient management decisions. Negative results must be combined with clinical observations, patient history, and epidemiological information. Performed on the [employer] Fusion instrument Specimen Performing Organization Address City/State/ZIP Code Phon e Number [facility] [address] [place] [address] documented in this encounter Visit Diagnoses Not on filedocumented in this encounter Care Teams Microfabrication Engineer Manager Relationship Specialty Start Date End Date Anthony Gomez MD PCP - General 03/10/19 [address] [place] [address] documented as of this encounter
--- OUTSIDE RECORDS SUMMARY | 2021-11-10 11:30 | XMS_ITS | Encounter Summary ---
:1980 Author Organization [facility] Address [address] [place] [address] Care Team Providers Name Role Phone Anthony Gomez MD Primary Care Provider Encounter Details Date Type Department Care Team Description 10/17/2021 Lab Requisition [facility] Outr Resulting Lab, Pathology & Laboratory Provider [facility] [address], [place] [id number] Social History Tobacco Use Types Packs/Day Years [...] Name Priority Date/Time Associated Diagnosis Comme nts CELIAC DISEASE Routine 10/17/2021 12:08 Results f or this PANEL EDT procedure are i n the results section. documented in this encounter Results CELIAC DISEASE PANEL (10/17/2021 12:08 EDT) Tissue <1.2 <4.0 U/mL [facility] Transglutaminase Comment: CENTER Antibody IGA A negative result may be due to IgA deficiency and does not rule out celiac disease. LABORATORY SERVICES ? Negative: ??<4.0 U/mL ? Weak Positive: ??4.0 - 10.0 U/mL ? Positive: ??>10.0 U/mL Results were obtained with StudyRoomA Lite R h-tTG IgA FINA assay on the View2Gether DSX. IgA 126 85 - 499 [facility] mg/dL [facility] Celiac Disease Negative Serology. [facility] Interpretation Celiac disease CENTER unlikely. LABORATORY Approximately 10% of SERVICES patients with celiac disease are seronegative. Patients who are already adhering to a gluten-free diet may also be seronegative. If celiac disease is highly clinically suspected, referral to gastroenterology for additional evaluation is recommended. Specimen Blood - Venous blood (substance) Performing Organization Address City/State/ZIP Code Phon e Number [facility] [address] [place] [address] SERVICES documented in this encounter Visit Diagnoses Not on filedocumented in this encounter Care Teams Political Anthropologist Relationship Specialty Start Date End Date Anthony Gomez MD PCP - General 03/10/19 [address] [place], [place] [id number] documented as of this encounter
--- OUTSIDE RECORDS SUMMARY | 2021-11-10 11:30 | XMS_ITS | Encounter Summary ---
:[address] [facility] Address [address] [place] [address] Care Team Providers Name Role Phone Anthony Gomez MD Primary Care Provider Encounter Details Date Type Department Care Team Description 02/29/2020 Travel Social History Tobacco Use Types Packs/Day Years [...] been in contact with No / Unsure 02/29/2020 11:17 EDT someone who was confirmed or suspected [...] on filedocumented in this encounter Care Teams Packaging Manager Relationship Specialty Start Date End Date Anthony Gomez MD PCP - General 03/10/19 [address] [place] [address] documented as of this encounter
--- OUTSIDE RECORDS SUMMARY | 2021-11-10 11:30 | XMS_ITS | Encounter Summary ---
:1980 Author Organization [facility] Address [address] [place] [id number] Care Team Providers Name Role Phone Anthony Gomez MD Primary Care Provider Reason for Visit Reason Onset Date Comments COVID-19 02/16/2020 Encounter Details Date Type Department Care Team Description 02/16/2020 Telephone [facility] - [address] COVID-19 PAUL Osorio MD [id number] [place] [address], [facility] [address] [place], [place] [phone] (Wo rk) Social History Tobacco Use Types [...] making decisions? documented as of this encounter Miscellaneous Notes Telephone Encounter - Tosin Engel - 02/16/2020 195 EDT Patient scheduled at [facility] on 02/27 @ 10:30am documented in this encounter Plan of Treatment Not on filedocumented as of this encounter Visit Diagnoses Not on filedocumented in this encounter Care Teams Pillowcase Cleaner Relationship Specialty Start Date End Date Anthony Gomez MD PCP - General 03/10/19 [address] [place] [address] documented as of this encounter
--- OUTSIDE RECORDS SUMMARY | 2021-11-10 11:30 | XMS_ITS | Encounter Summary ---
:1980 Author Organization [facility] Address [address] [place] [address] Care Team Providers Name Role Phone Anthony Gomez MD Primary Care Provider Reason for Referral (Routine) - Receiving Office to Obtain Authorization Specialty Diagnoses / Procedures Referred By Contact Eloisa gloria To Contact Krystyna Alcantar NP [address] [phone] Referral ID Status Reason Start Expiration Visits Visits Date Date Requested Authorized [id number] Receiving Office Specialty 1 1 to Obtain Services 0 Authorization Required Comments Please call the General Surgery clinic a t [phone] if you have any questions or concerns. Please keep your scheduled colton ointment with Dr. Booth in 1 month. (Routine) - Receiving Office to Obtain Authorization Specialty Diagnoses / Procedures Referred By Contact Eloisa gloria To Contact Krystyna Alcantar NP [address] [phone] Referral ID Status Reason Start Expiration Visits Visits Date Date Requested Authorized [id number] Receiving Office Specialty 1 1 to Obtain Services 0 Authorization Required Comments Chest pain (angina) Dizziness or fainting Decreased urine output Fever greater than 101 or chills Inability to swallow or increasing diffi culty swallowing Increased or new pain Nausea or vomiting Pain unrelieved by medication Severe or increasing headache Shortness of breath or rapid breathing Skin rash Signs of infection such as pain, redness , swelling or drainage at procedure or wound site Swelling in your legs (Routine) - Receiving Office to Obtain Authorization Specialty Diagnoses / Procedures Referred By Contact Refer juani To Contact Krystyna Alcantar, JUMA [address] [phone] Referral ID Status Reason Start Expiration Visits Visits Date Date Requested Authorized [id number] Receiving Office Specialty 1 1 to Obtain Services 0 Authorization Required Comments We are currently collecting quality data on patients having surgery. You may receive a phone call, email, and/or letter about your surgery asking you a series of follow up questions to evaluate specifics aspec ts of your care. Thank you for your participation. Reason for Visit Auth/Cert Specialty Diagnoses / Procedures Referred By Contact Refer red To Contact Diagnoses Achalasia Procedures GA LAP, ESOPHAGOMYOTOMY W FUNDOPLASTY Laparoscopic heller myotomy Referral ID Status Reason Start Date Expiration Date Visits Requ ested Visits Authorized [id number] 1 1 Encounter Details Date Type Department Care Team Description 03/03/2020 - Hospital Encounter [facility] TicoBhaskar daniel 03/04/2020 General Surgery Unit MD Devon [address] [phone] [address] (Wo rk) Social History Tobacco Use [...] / COVID-19? documented as of this encounter Last Filed Vital Signs Vital Sign Reading Time Taken Comments Blood Pressure 107/61 03/04/2020933 EDT Pulse - - Temperature 36.4 ??C (97.5 ??F) 03/04/2020933 EDT Respiratory Rate 16 03/04/2020933 EDT Oxygen Saturation 96% 03/04/2020933 EDT Inhaled Oxygen Concentration - - Weight 95.5 kg (210 lb 8.6 oz) 03/03/20202009 EDT Height 167.9 cm (5' 6.1) 03/03/20202009 EDT Body Mass Index 33.88 03/03/20202009 EDT documented in this encounter Functional Status [...] or older) documented as of this encounter Discharge Summaries Krystyna Alcantar APRN - 03/04/2020 0934 EDT Surgery Discharge Summary Primary Care Provider: Anthony Gomez Attending Physician: Bhaskar Booth* Admit Date: 03/03/2020 Discharge Date: 03/04/2020 Disposition: Home or self care Problems and Procedures Admitting Diagnosis: Achalasia Principal/Final Diagnosis: Achalasia Additional Problems Managed in the Hospital Active Hospital Problems Diagnosis Date Noted ??? *Achalasia 01/02/2020 Resolved Hospital Problems No resolved problems to display. Principal Procedure: Laparoscopic heller myotomy Date: 03/03/2020 Secondary Procedures: none Hospital Course Sugey Cisneros was evaluated in the General Surgery clinic for a history of achalasia and was admitted on the day of surgery when an elective laparoscopic heller myotomy was performed without complication. She was recovered in PACU and transferred to the surgical floor for postoperative monitoring. She had baseline return of urinary function. She remained hemodynamically stable and her pain was well managed throughout her stay. Her diet was advanced to full liquids which she tolerated. She was discharged home to follow up in our clinic. Allergies and Immunizations Allergies Allergen Reactions ??? Sulfa (Sulfonamide Antibiotics) Shortness Of Breath ??? Morphine Rash Causes a rash and it is not effective for pain relief. ??? Penicillins Rash There is no immunization history on file for this patient. Transition of Care Plans Condition at Discharge Good Assessment at Discharge Vital signs: Patient Vitals for the past 12 hrs: BP Heart Rate Resp Temp SpO2 O2 Flow Rate (L/min) O2 Device 03/04/20 0602 122/53 59 BPM 16 36.3 ??C (97.3 ??F) 95 % ??? None 03/04/20 0136 115/63 ??? 18 ? 03/04/20 0133 ??? 68 BPM ??? 37 ??C (98.6 ??F) 92 % ? 03/03/20 2315 ? 0 l/min None Results Pending at Discharge Test results still pending from this admission None Relevant Studies at Discharge None Last Lab Results at Discharge BUN: Lab Results Component Value Date BUN 11 02/24/2018 Creatinine: Lab Results Component Value Date CREATININE 0.74 02/24/2018 CBC: Lab Results Component Value Date RBC 2.98 (L) 10/20/2018 HGB 8.8 (L) 10/20/2018 MCV 90.3 10/20/2018 MCH 29.5 10/20/2018 MCHC 32.7 10/20/2018 PLT 178 10/20/2018 Discharge Follow Up Future Appointments Date Time Provider Department Center 04/04/2020 10:30 Bhaskar Booth MD MP5 Gen Surg None Krystyna Alcantar, SORAIDA 03/04/2020 9:35 documented in this encounter Medications at Time of Discharge [...] yrs) intrauterine route 52 mg IUD once. oxyCODONE (ROXICODONE) 5 Take 5 mL by mouth 60 mL 0 04/01/2020 mg/5 mL solution every 6 hours as needed for Pain. Daily Max: 20 mg documented as of this encounter Ordered Prescriptions Prescription Sig Dispensed Refills Start Date End Date ondansetron (ZOFRAN-ODT) 4 Take 1 Tab by 15 Tab 2 2019 mg disintegrating tablet mouth every 8 hours as needed for Nausea. ibuprofen (ADVIL;MOTRIN) Take 20 mL by 0 03/04/20 20 100 mg/5 mL suspension mouth every 6 hours. acetaminophen (TYLENOL) 325 Take 20.3 mL by 0 mg/10.15 mL solution mouth every 4 hours as needed for Pain. oxyCODONE (ROXICODONE) 5 Take 5 mL by mouth 60 mL 0 04/01/2020 mg/5 mL solution every 6 hours as needed for Pain. Daily Max: 20 mg documented in this encounter Discharge Disposition Disposition Code Departure Means Destination Home or Self [facility]itent[facility] documented in this encounter Progress Notes Bekah Figueroa - 03/04/2020 1013 EDT Pt was discharged home to self care prior to home risk assessment. CM reviewed the patient's chart, face sheet and nursing documentation (and has discussed the patient's situation with the medical team). No CM dc needs were identified. Jie Figueroa RN [facility] [id number]ura, Bhaskar Osorio MD - 03/04/2020 0750 EDT Surgery Progress Note Service Date: 03/04/2020 Admit Date: 03/03/2020 9:34 POD: 1 (03/03/2020) Procedure: Laparoscopic heller myotomy Chief Complaint: Achalasia Subjective/Objective Subjective Had some nausea overnight, but resolved now after some Zofran. Pain is minimal. Denies fevers/chills/CP/SOB. Objective Vital Signs Temp: [35.7 ??C (96.3 ??F)-37.4 ??C (99.3 ??F)] , Heart Rate: [59 BPM-75 BPM] , Pulse: --, Pulse From Oximetry: [64 BPM-78 BPM] , Resp: [10-26] , BP: (115-147)/(53-80) , SpO2: [92 %-100 %] Physical Exam General Appearance: alert, cooperative, no distress Lung: clear to auscultation bilaterally Heart: regular rate and rhythm Abdomen: Soft ND, NT, lap incisions closed with Dermabond C/D/I Extremities: Warm and well perfused, no edema Skin: Skin color, temperature, turgor normal. No rashes or lesions Assessment/Plan Assessment 40 y.o. female with history of achalasia now POD#1 s/p laparoscopic heller myotomy. Convalescing appropriately. Plan Principal Problem: Achalasia - Advance to full liquids - give patient pamphlet regarding diet advancement - Pain ctrl: Liquid oxy, Tylenol, ibuprofen - OOB, AAT no heavy lifting no strenuous exercise - PPX: SCDs; ambulate; LVX 40 hs - Dispo: Home today 03/04/20 7:54 Jose Mcleod MD, PGY-5 Surgery, [phone] Attestation statement: I saw and examined the patient, and I discussed with the resident/fellow. I agree with the findings and plan of care documented in the resident's/fellow's note. Doing well. Pain controlled. Diet advancement reviewed. OK for d/c. --Bhaskar Booth MD Randy Camilo MD - 03/03/2020 3279 EDT SURGERY POST-OP CHECK Procedure: Laparoscopic heller myotomy with Donnell fundoplication Date: 03/03/2020 SUBJECTIVE: Pain well controlled. Currently rated 4/10. Endorses mild nausea. Also endorses wet cough with some mild shortness of breath. Has not been OOB. Denies flatus. Has tolerated clears without an increase in her nausea. Denies vomiting. Has yet to void. No other complaints. Denies chest pain. OBJECTIVE: VS: Blood pressure 120/80, temperature 35.7 ??C (96.3 ??F), temperature source Tympanic, resp. rate 20, weight 95.5 kg (210 lb 8.6 oz), last menstrual period 02/25/2020, SpO2 99 %. I/O: Current Shift 03/03 1500 - 03/03 8579 In: 900 [I.V.:900] Out: 375 [Urine:350] Medications: Current Facility-Administered Medications Medication Route Frequency ??? acetaminophen (TYLENOL) solution unit dose cup 650 mg oral Q6H ??? electrolyte-A (PLASMALYTE-A) solution intravenous CONTINUOUS ??? [START ON 03/04/2020] enoxaparin (LOVENOX) injection 40 mg subcutaneous QHS ??? ibuprofen (ADVIL;MOTRIN) suspension 400 mg oral Q6H ??? ibuprofen (ADVIL;MOTRIN) 100 mg/5 mL suspension ??? lactated ringers (LR) infusion intravenous CONTINUOUS ??? oxyCODONE (ROXICODONE) solution 5-10 mg oral Q4H PRN Physical Exam: General: alert, cooperative, no acute distress Heart: regular rate and rhythm Lungs: clear to auscultation bilaterally Abdomen: Soft, appropriately-tender, non distended Incision/Dressing: C/D/I Extremities: WWP ASSESSMENT/PLAN: 40 y.o. female POD#0 s/p Laparoscopic heller myotomy with Donnell fundoplication, recovering on floor as expected. -Clear liquid diet -Pain control w/ liquid oxycodone -Lovenox qhs to begin tomorrow evening Encourage IS use Diet: DIET CLEAR LIQUID RANDY CAMILO MD 03/03/2020 20:40 Emergency Medicine PGY-1 Blue Team Pager #[phone] Jeanine Goncalves RN - 03/03/2020 1035 EDT Preop Covid DOS screening questionnaire Please document by exception (only check those that apply). Have you had any of the following symptoms recently? No Yes Chronic ? Cough Shortness of breath or difficulty breathing Fever Chills Fatigue Muscle or body aches Severe Headache New loss of taste or smell Sore throat Congestion or runny nose Rash Nausea, vomiting, or diarrhea (rare in adults. More common in children) Were you covid tested? Yes If yes, have you self-isolated/quarantined since your test? Yes See admission vital signs documentation for admission temperature. Izaiah Becerra RN - 02/29/2020 1228 EDT Called [facility] for 2019 anesthesia records, they will fax documented in this encounter H&P Notes Bhaskar Booth MD - 03/03/2020 1116 EDT The preoperative history and physical which was performed within 30 days of this Procedure by primary doctor ([facility]) on 02/24/20 has been reviewed and the clinically appropriate elements of the physical examination have been repeated. There are no changes to the documented history and physical or if so such changes are documented below Bhaskar Booth MD 03/03/2020 11:16 documented in this encounter OR Notes OR Surgeon - Bhaskar Booth MD - 03/03/2020 0000 EDT OPERATIVE REPORT SERVICE DATE: 03/03/2020 PREOPERATIVE DIAGNOSIS: Achalasia. POSTOPERATIVE DIAGNOSIS: Achalasia. PROCEDURE: Laparoscopic Heller myotomy with Donnell fundoplication. SURGEON: Bhaskar Booth MD, FACS SPRAY II PAINTER: Jose Mcleod MD ANESTHESIA: General endotracheal and local. ESTIMATED BLOOD LOSS: Minimal. FLUIDS: 1800 mL of crystalloid. URINE OUTPUT: 380 mL. DRAINS: None. COMPLICATIONS: None. INDICATIONS: This is a 40-year-old woman with a history of dysphagia and has been present for almosta year and a half, she has had a significant weight loss. The dysphagia progressed from solids to liquids and she had unforceful regurgitation. She also had to sleep upright in an adjustable bed. She had a dilated esophagus with a distal narrowing on upper GI study, which was consistent with achalasia, manometry confirmed achalasia. She had a dilatation once, but it did not really help her symptoms. She was offered Heller myotomy. FINDINGS: Adequate myotomy checked with endoscopy and integrity of the esophagus were checked with endoscopy, there was a thin area of mucosa, but no perforation. We oversew that area with a 4-0 Vicrylsuture and performed a Donnell fundoplication over that area as well. NARRATIVE: The patient was taken to the operating room and placed supine on the operating table, identified as Sugey Cisneros. I was present for the entire case. After induction of general anesthesia, the abdomen was prepped and draped in the usual sterile fashion. An incision was then made a centimeter long, just to the left of midline in the epigastrium. A Veress needle was used to access the peritoneal cavity, which was insufflated to 14 mmHg using carbon dioxide. A 10 mm port was placed in this location followed by a 10 mm 3D laparoscope used to examine the abdomen. We placed an additional 4 ports in the upper abdomen for standard laparoscopic foregut surgery. A liver retractor was used to elevate the left lateral segment of the liver. The fundus of the stomach was grasped and retracted medially. The gastrosplenic ligament was retracted laterally and the gastrosplenic ligament was then divided up to the left chidi of the diaphragm with the Harmonic scalpel. We controlled some bleeding from one of the short gastric vessels to the upper pole of the spleen using some clips. The gastrohepatic ligament was divided up to the right chidi of diaphragm. The right and left chidi were from the esophagus. The esophageal phrenic ligament was cut. A window was then made posterior to the esophagus, which was encircled with a Jeff drain for retraction. Mediastinal dissection of the esophagus was then undertaken in its lower portion to allow adequate length of the esophagus in the abdomen. The posterior vagus nerve was preserved along their course. The anterior vagus nerve was adherent to the esophagus and this was sacrificed for the myotomy. The esophagus was somewhat dilated. It also had some slight scarring in the mediastinum, but we were able to free up enough to get locate the GE junction and distal esophagus. The esophageal phrenic fat pad was removed. We started the myotomy with the hook blade of the Harmonic scalpel and the cardia of the stomach. This area was stuck with some scarring between the muscle fibers and the mucosa. We were able to a complete the myotomy starting on the cardia and extending proximally just to the right of midline. We were able to obtain a good plane between the mucosa and circular and longitudinal muscle layers. We cut the circular and longitudinal muscle fibers using the hook blade of the Harmonic scalpel. We could see the GE junction and the hypertrophied muscle at the lower esophageal sphincter. We cut that we measured. We then performed an endoscopy and could see the squamocolumnar junction. Our myotomy was 6 cm up from this area and more than2 cm down onto the cardia. We could see that our myotomy was adequate onto the cardia of the stomachwith the endoscopy. The distal esophagus and proximal stomach was then filled with methylene blue with the endoscope and there was no leakage seen. There was a thin area of mucosa and although there was no perforation here it was thought that it was too thin we decided to oversew this with a 4-0 Vicryl suture. The diaphragmatic crura were then reapproximated posterior to the esophagus with 2 interrupted 0 Surgidac sutures using the Endostitch device. Care was taken to avoid over tightening the chidi.To cover the myotomy and the area where we oversewed to reinforce to me mucosa we performed a Donnell fundoplication. The fundus of the stomach was then brought anteriorly. We sutured the stomach to the cut edge of the esophageal muscle on the left side. We then performed another stitch where we did that and anchored it to the diaphragm. The fundus of the stomach was also anchored to the diaphragm anteriorly and also on the right side, incorporating the cut edge of the muscle. The fundus was also sutured to the diaphragm posteriorly. This covered the distal 2/3 of the myotomy, it also covered the area of the mucosa, which was oversewn in a Lembert fashion. The wrap laid nicely without angulation or twisting of the esophagus. There was no further bleeding after inspection of the splenic hilum and along the myotomy and elsewhere. The left upper quadrant was irrigated with saline. Effluent was clear. The liver retractor was removed, the pneumoperitoneum was released, the ports were removed. The fasciaat each 10 mm port site was closed with an 0 Vicryl suture. Each wound was irrigated and infiltratedwith local anesthesia, and the skin at each site was then closed with subcuticular stitch of 4-0 [place] cryl. Dermabond was used to cover each incision. The sponge, needle and instrument counts were correct at the end of the case. The patient was awoken from anesthesia, extubated and taken to the recovery room in stable condition. Unless otherwise noted, there were no complications, no blood loss, no cultures obtained, no specimens removed, and no drains retained. Bhaskar Booth MD FACS / Confirmation: [id number] Dictation ID: [id number] cc: Bhaskar Booth MD FACS, [facility] - Surgery, [address] [place] [address] Rere Caal MD, [facility], [address] [place] [address] documented in this encounter Miscellaneous Notes Plan of Care - Ezio Foss RN - 03/04/2020 1003 EDT Nursing Discharge Note D: Patient noted with discharge orders to: home. A: Prescriptions provided to patient. Reviewed discharge instructions and prescriptions with Patient IV d/c'd. Belongings collected and sent home with patient. R: Patient verbalized understanding of discharge instructions and denied further questions. EZIO FOSS RN 03/04/2020 10:03 lan of Care - Tanya Gonzales RN - 03/04/2020 0333 EDT Data: POD #1 lap heller myotomy with Donnell fundoplication. Pts pain controlled with current regime. Met DTV. Tolerating clears w/o n/v or increase in abd pain. Lap sites c/d/i. Mild nausea that is controlled. Action: medications administered (see eMAR) encouraged IS use while awake, PO intake as tolerable, and ambulation. Clustered care to promote rest. Response: pt resting comfortably in between cares. Pt pain controlled. Will continue to monitor. TANYA GONZALES RN 03/04/2020 3:33 rief Op Note - Gayel Bustos MD - 03/03/2020 1613 EDT Date: 03/03/2020 Location: [facility] OR Name: Sugey Cisneros, : 1980, Diagnosis Pre-op Diagnosis * Achalasia [K22.0] Post-op Diagnosis * Achalasia [K22.0] Procedures Laparoscopic heller myotomy [id number] - GA LAP, ESOPHAGOMYOTOMY W FUNDOPLASTY Surgeons * Bhaskar Booth MD - Primary * Jose Mcleod MD - Resident - Assisting * Gayle Bustos MD - Resident - Assisting Procedure Summary Anesthesia: General ASA: II Estimated Blood Loss: 25 mL Total IV Fluids: 1800 mL Urine: 380 mL Staff: Plastic Technician: Chelsey Daniel RN Relief Plastic Technician: Erin Hendricks RN Relief Scrub: Keli Rod; Kelsey Sibley RN Scrub Person: Wilber Castillo; Connor Hemphill RN Patient Print Production Associate: Jose Oliveira Indications: Sugey Cisneros is an 40 y.o. female who is having surgery for achalasia Findings: long segment Heller myotomy performed extending onto cardia of stomach. EGD performed and demonstrating no extravasation of methylene blue. Donnell fundoplication performed to prevent future reflux. Complications: None; patient tolerated the procedure well. Disposition: PACU - hemodynamically stable. Condition: stable Specimens Collected: none Plan: -Clear liquid diet -Pain control w/ liquid oxycodone -Lovenox qhs to begin tomorrow evening -POC in 4 hours Gayle Bustos MD, PGY-2 03/03/2020 16:14 #[id number] AT Note - Princess Cortes MD - 02/29/2020 9357 EDT Pt reports bad reaction to gen anes in the past. Last surgery was Mar 2019. Higher doses of medication was needed, didn't last as long. Pt gets fever, chills, pain, bruising for1 wk post op. S/s start 2-4 days post op. Surgery was a carpal tunnel release under general per Pt at [facility]. Pt reports this happens to her sister [...] the day of surgery. [facility]esthesia records from [facility] will be requested. No additional testing is necessary at this time. Standard perioperative COVID testing. Final anesthesia plan to be determined by the anesthesia team on the day of surgery. Princess Cortes MD ++++++ Reviewed outside anesthesia chart. No mention of complications. Propofol infusion for case (rate between 100-200 mcg/kg/min), no pain medications/adjuncts (probably local infiltrated by the surgeon). Report is scanned under the media section. Princess Cortes MD documented in this encounter Plan of Treatment Scheduled Referrals Name Type Priority Associated Order Schedule Diagnoses PROVIDER FOLLOW-UP Outpatient Referral Routine Or dered: INSTRUCTIONS 03/04/2020 PROVIDER FOLLOW-UP Outpatient Referral Routine Or dered: INSTRUCTIONS 03/04/2020 PROVIDER FOLLOW-UP Outpatient Referral Routine Or dered: INSTRUCTIONS 03/04/2020 documented as of this encounter Procedures Procedure Name Priority Date/Time Associated Comments Diagnosis LAPAROSCOPY 03/03/2020 11:26 Achalasia ESOPHAGOMYOTOMY HELLER EDT MYOTOMY TYPE AND SCREEN Routine 03/03/2020 10:40 Results for this EDT procedure are i n the results section. TEST, URINE STAT 03/03/2020 10:13 Re sults for this EDT procedure are i n the results section. documented in this encounter Results TYPE AND SCREEN (03/03/2020 10:40 EDT) ABO O [facility] Rh Factor Positive [facility] Antibody Screen Negative [facility] Specimen Expires: 03/06/2020 @ 23:59 [facility] Specimen Blood - Venous blood (substance) Performing Organization Address [facility] Phon e Number [facility] [address] [facility] [place] [phone] TEST, URINE (03/03/2020 10:13 EDT) Test, NegativeComment: Negative [facility] False negative LABORATORY results may occur in SERVICES women who are beyond 5-8 weeks gestation. Diagnosis of should be based on a correlation of test results with typical clinical signs and symptoms. Specimen Urine - Urine, Clean Catch Performing Organization Address [facility] Phon e Number [facility] [address] [place] [address] SERVICES documented in this encounter Visit Diagnoses Diagnosis Achalasia - Primary Achalasia and cardiospasm documented in this encounter Administered Medications Inactive Administered Medications - up to 3 most recent administrations Medication Order MAR Action Action Date Dose Rate Site acetaminophen (TYLENOL) solution unit Given 03/04/2020 4:28 EDT 650 mg dose cup 650 mg 650 mg, oral, EVERY 6 HOURS, First dose on Linda 03/03/20 at 2200, Until Discontinued, Routine Given 03/03/2020 21:46 EDT 650 mg electrolyte-A (PLASMALYTE-A) Rate Documented 03/03/2020 23:29 EDT 75 mL/hr solution at 75 mL/hr, intravenous, CONTINUOUS, Starting on Linda 03/03/20 at 1900, Until Sat03/04/20 at 0549, Routine Rate Documented 03/03/2020 20:10 EDT 75 mL/hr New Bag 03/03/2020 19:01 EDT 75 mL/hr fentaNYL citrate (PF) injection 25-50 mc g Given 03/03/2020 17:38 EDT 37.5 mcg 25-50 mcg, intravenous, EVERY 5 MIN PRN, Starting on Linda 03/03/20 at 1546, Until Linda 03/03/20 at 1947, Pain, Routine, Recovery (only) Given 03/03/2020 16:56 EDT 25 mcg HYDROmorphone (PF) (DILAUDID) 0.5 mg/0.5 mL Given 03/03/2020 17: 38 EDT 0.5 mg syringe 0.3-0.5 mg 0.3-0.5 mg, intravenous, EVERY 10 MINUTES PRN, Starting on Linda 03/03/20 at 1546, Until Linda 03/03/20 at 1947, Pain, Routine, Recovery (only) ibuprofen (ADVIL;MOTRIN) 100 mg/5 mL cathleen pension 1 dose, Starting on Linda 03/03/20 at 1853, Until 02/15 at 1213 ibuprofen (ADVIL;MOTRIN) suspension 400 mg Given 03/04/2020 6:05 EDT 400 mg 400 mg, oral, EVERY 6 HOURS, First dose on Linda 03/03/20 at 1900, Until Discontinued, Routine Given 03/04/2020 1:36 EDT 400 mg Given 03/03/2020 18:55 EDT 400 mg lactated ringers (LR) infusion New Bag 03/03/2020 13:31 EDT at 25 mL/hr, intravenous, CONTINUOUS, Starting on Linda 03/03/20 at 1115, Until Linda 03/03/20 at 1948, Routine, Preprocedure Continued by Anesthesia 03/03/2020 11:34 EDT New Bag 03/03/2020 10:40 EDT 25 mL/hr lactated ringers (LR) infusion Rate Documented 03/03/2020 16:41 EDT 75 mL/hr at 75 mL/hr, intravenous, CONTINUOUS, Starting on Linda 03/03/20 at 1615, Until Sat03/04/20 at 0549, Routine, Recovery (only) lidocaine (PF) 10 mg/mL (1 %) injection 2 mg Given 03/03/2020 10:40 EDT 2 mg 2 mg, intradermal, PRN, 4 doses, Starting on Linda 03/03/20 at 1055, Until Linda 03/03/20 at 1627, peripheral intravenous catheter placement, Routine, Preprocedure ondansetron (PF) (ZOFRAN) 4 mg/2 mL inje ction 1 dose, Starting on Linda 03/03/20 at 2324, Until 02/15 at 0601 ondansetron (PF) (ZOFRAN) injection 4 mg Given 03/04/2020 9:51 EDT 4 mg 4 mg, intravenous, EVERY 4 HOURS PRN, Starting on Linda 03/03/20 at 2320, Until Sat03/04/20 at 1213, Nausea, Routine Given 03/04/2020 6:01 EDT 4 mg Given 03/03/2020 23:25 EDT 4 mg oxyCODONE (ROXICODONE) solution 5-10 mg Given 03/03/2020 18:02 EDT 10 mg 5-10 mg, oral, EVERY 30 MINUTES PRN, 2 doses, Starting on Linda 03/03/20 at 1546, Until Linda 03/03/20 at 1947, Pain, Routine, Recovery (only) oxyCODONE (ROXICODONE) solution 5-10 mg Given 03/03/2020 20:10 EDT 10 mg 5-10 mg, oral, EVERY 4 HOURS PRN, Starting on Linda 03/03/20 at 1948, Until Sat03/04/20 at 1213, Pain, Routine sodium chloride 0.9 % (flush) flush 3 mL Given 03/04/2020 7:29 EDT 3 mL 3 mL, intravenous, EVERY 8 HOURS, First dose on Sat03/04/20 at 0800, Until Discontinued, Routine documented in this encounter Discontinued Medications Medication Sig Discontinue Reason Start Date End Date nitroGLYCERIN Place 0.4 mg under 03/04/20 20 (NITROSTAT) 0.4 mg SL the tongue every 5 tablet minutes. For achalasia documented as of this encounter Active and Recently Administered Medications Times are shown in EDT. Scheduled Medication Order 03/02/2020 03/03/2020 03/04/2020 acetaminophen (TYLENOL) solution unit dose cup 650 mg 2146 (Given - Provider: Delisa Huizar RN) 0428 (Given - Provider: Tanya vargas RN)1000 (Canceled Entry - Provider: Batch Job User Admin - Comment: Automatically canceled at discontinue of medication order) 650 mg, oral, EVERY 6 HOURS, First dose on Sat03/03/20 at 2200, Until Discontinued, Routine enoxaparin (LOVENOX) injection 40 mg 40 mg, subcutaneous, AT BEDTIME, First d ose on Sat03/04/20 at 2100, Until Discontinued, Routine ibuprofen (ADVIL;MOTRIN) suspension 400 mg 1855 (Given - Provider: Carley Horner RN) 0136 (Given - Provider: Tanya vargas RN)0605 (Given - Provider: Tanya Gonzales RN) 400 mg, oral, EVERY 6 HOURS, First dose on Sat03/03/20 at 1900, Until Discontinued, Routine sodium chloride 0.9 % (flush) flush 3 mL(Linked Group 1) 0729 (Given - Provider: Ezio Foss, ITZ) 3 mL, intravenous, EVERY 8 HOURS, First dose on Sat03/04/20 at 0800, Until Discontinued, Routine Continuous Medication Order 03/02/2020 03/03/2020 03/04/2020 electrolyte-A (PLASMALYTE-A) solution (CANCELED) 1901 (New Bag - Provider: Carley Horner RN)2009 (Rate Documented - Provider: Delisa Huizar RN)2329 (Rate Documented - Provider: Tanya Gonzales RN) 0556 (Completed - Provider: Tanya Gonzales RN) at 75 mL/hr, intravenous, CONTINUOUS, St arting Linda 03/03/20 at 1900, Until Sat03/04/20 at 0549, Routine lactated ringers (LR) infusion (CANCELED) 1040 (New Bag - Provider: Jeanine Montemayor RN)1134 (Continued by Anesthesia - Provider: Cornell Santiago MD)1331 (New Bag - Provider: Cornell Santiago MD)1526 (Anesthesia Volume Adjustment - Provider: Tim Gee APRN) at 25 mL/hr, intravenous, CONTINUOUS, St arting Linda 03/03/20 at 1115, Until Linda 03/03/20 at 1948, Routine, Preprocedure 1617 (Anesthesi a Volume Adjustment - Provider: Tim Gee APRN) lactated ringers (LR) infusion (CANCELED) 1641 (Rate Documented - Provider: Carley Horner RN) at 75 mL/hr, intravenous, CONTINUOUS, St arting Linda 03/03/20 at 1615, Until Sat03/04/20 at 0549, Routine, Recovery (only) PRN Medication Order 03/02/2020 03/03/2020 03/04/2020 bupivacaine (PF) (MARCAINE) 0.5% injection (CANCELED) 1303 (Given - Provider: Bhaskar Booth MD) As needed, Starting on Linda 03/03/20 at 13 03, Until Linda 03/03/20 at 1303, Routine, Intraprocedure fentaNYL citrate (PF) injection 25-50 mcg (CANCELED) 1656 (Given - Provider: Carley Horner RN)1738 (Given - Provider: Carley Horner RN) 25-50 mcg, intravenous, EVERY 5 MIN PRN, Starting Linda 03/03/20 at 1546, Until Linda 03/03/20 at 1947, Pain, Routine, Recovery (only) HYDROmorphone (PF) (DILAUDID) 0.5 mg/0.5 mL syringe 0.3-0.5 mg (CANCELED) 1738 (Given - Provider: Carley Horner RN) 0.3-0.5 mg, intravenous, EVERY 10 MINUTE S PRN, Starting Linda 03/03/20 at 1546, Until Linda 03/03/20 at 1947, Pain, Routine, Recovery (only) lidocaine (PF) 10 mg/mL (1 %) injection 2 mg (CANCELED) 1040 (Given - Provider: Jeanine Montemayor, RN) 2 mg, intradermal, PRN, 4 doses, Startin g Linda 03/03/20 at 1055, Until Linda 03/03/20 at 1627, peripheral intravenous catheter placement, Routine, Preprocedure ondansetron (PF) (ZOFRAN) injection 4 mg 2325 (Given - Provider: Tanya Gonzales RN) 0601 (Given - Provider: Tanya vargas, ITZ)0951 (Given - Provider: Ezio Foss RN) 4 mg, intravenous, EVERY 4 HOURS PRN, St arting Linda 03/03/20 at 2320, Until Sat03/04/20 at 1213, Nausea, Routine oxyCODONE (ROXICODONE) solution 5-10 mg (CANCELED) 180 (Given - Provider: Carley Horner RN) 5-10 mg, oral, EVERY 30 MINUTES PRN, 2 d oses, Starting Linda 03/03/20 at 1546, Until Linda 03/03/20 at 1947, Pain, Routine, Recovery (only) oxyCODONE (ROXICODONE) solution 5-10 mg 2009 (Given - Provider: Delisa Huizar, ITZ) 5-10 mg, oral, EVERY 4 HOURS PRN, Starti ng Linda 03/03/20 at 1948, Until Sat03/04/20 at 1213, Pain, Routine sodium chloride 0.9 % 1,000 mL with meth ylene blue (PROVAYBLUE) 5 mg/mL (0.5 %) 5 mL (CANCELED) 1315 (Given - Provider: Eleazar Booth MD - Comment: 3 mL added to 500 mL 0.9%NS) As needed, Starting Linda 03/03/20 at 1315, Until Linda 03/03/20 at 1316, Routine, Intraprocedure sodium chloride 0.9 % irrigation (CANCELED) 1301 (Given - Provider: Bhaskar Booth MD) As needed, Starting Linda 03/03/20 at 1301, Until Linda 03/03/20 at 1303, Routine, Intraprocedure No Frequency Medication Order 03/02/2020 03/03/2020 03/04/2020 ibuprofen (ADVIL;MOTRIN) 100 mg/5 mL suspension 1 dose, Starting Linda 03/03/20 at 1853, Until Discontinued Linked Groups Order Group 1: Change IV to Saline Lock (CANCELED) Routine, ONE TIME, Sat03/04/20 at 0550, For 1 occurrence And sodium chloride 0.9 % (flush) flush 3 mLJump to med 3 mL, intravenous, EVERY 8 HOURS, First dose on Sat03/04/20 at 0800, Until Discontinued, Routine documented in this encounter Orders Medications Ordered That Might Not Have Count Last Ord ered Date First Ordered Date Been Administered atropine 0.1 mg/mL syringe 0.5 mg 1 03/03/2020 bupivacaine (PF) (MARCAINE) 0.5% injection 1 03/03 ceFAZolin (ANCEF) syringe 2 g 1 03/03/2020 diphenhydrAMINE (BENADRYL) injection 12.5 1 2019 mg enoxaparin (LOVENOX) injection 40 mg 1 03/03/2020 ibuprofen (ADVIL;MOTRIN) 100 mg/5 mL 1 03/03/2020 suspension naloxone (NARCAN) injection 0.2 mg 1 03/03/2020 ondansetron (PF) (ZOFRAN) injection 4 mg 1 020 sodium chloride 0.9 % 1,000 mL with 1 03/03/2020 methylene blue (PROVAYBLUE) 5 mg/mL (0.5 %) 5 mL sodium chloride 0.9 % irrigation 1 03/03/2020 Diet Count Last Ordered Date First Ordered Date DISCHARGE DIET 1 03/04/2020 Nursing Count Last Ordered Date First Ordered Date ACTIVITY INSTRUCTIONS 1 03/04/2020 BATHING INSTRUCTIONS 1 03/04/2020 DRIVING INSTRUCTIONS 1 03/04/2020 WOUND CARE INSTRUCTIONS 03/04/2020 INSERT PERIPHERAL IV 1 03/03/2020 MEASURE HEIGHT 1 03/03/2020 MEASURE WEIGHT 1 03/03/2020 Admission Count Last Ordered Date First Ordered Date ADMIT TO INPATIENT 1 03/03/2020 Transfer Count Last Ordered Date First Ordered Date TEACHING SERVICE 1 03/03/2020 Discharge Count Last Ordered Date First Ordered Date DISCHARGE PATIENT 1 03/04/2020 documented in this encounter Care Teams Tank House Operator Relationship Specialty Start Date End Date Anthony Gomez MD PCP - General 03/10/19 [address] [place] [address] documented as of this encounter
--- OUTSIDE RECORDS SUMMARY | 2021-11-10 11:30 | XMS_ITS | Encounter Summary ---
:1980 Author Organization [facility] Address [address] [place] [address] Care Team Providers Name Role Phone Anthony Gomez MD Primary Care Provider Reason for Visit Reason Comments Other Pre-procedure COVID lashell rosen Encounter Details Date Type Department Care Team Description 02/28/[address] [facility] Mobile Scre ening for viral [facility] Testing diseholli se (Primary Dx) - [facility] - Mobile Testing Department [address] [place] [address] Social History Tobacco Use Types Packs/Day Years [...] Taken Comments Blood Pressure - - Pulse 91 02/28/2020 1017 EDT Temperature - - Respiratory Rate - - Oxygen Saturation 99% 02/28/2020 1017 EDT Inhaled Oxygen Concentration - - Weight - - Height - - Body Mass Index - - documented in this encounter Functional Status Functional [...] making decisions? documented as of this encounter Progress Notes Key Duran - 02/28/2020 1030 EDT Pre-procedure COVID screening documented in this encounter Plan of Treatment Not on filedocumented as of this encounter Visit Diagnoses Diagnosis Screening for viral disease - Primary Special screening examination for unspec ified viral disease documented in this encounter Care Teams Supervisor Industrial Garment Relationship Specialty Start Date End Date Anthony Gomez MD PCP - General 03/10/19 [address] [place] [address] documented as of this encounter
--- OUTSIDE RECORDS SUMMARY | 2021-11-10 11:30 | XMS_ITS | Encounter Summary ---
:1980 Author Organization [facility] Address [address] [place] [address] Care Team Providers Name Role Phone Anthony Gomez MD Primary Care Provider Reason for Visit Reason Comments Chest Pain Patient reports covid pos ye sterday, she woke this morning to 10/10 chest pain that did not resolve wi th nitro x3 that was administered in route. Encounter Details Date Type Department Care Team Description 08/22/2021 Emergency [facility] - Michelle Longo COVID -19 (Primary Dx) [facility] Emergency [facility] [place] Department [address] [place] [id number] (Wo rk) Social History Tobacco Use [...] month, have you been in contact with someone Yes 08/22/2021 6:08 EST who was confirmed or suspected to have Coronavirus / COVID-19? documented as of this encounter Last Filed Vital Signs Vital Sign Reading Time Taken Comments Blood Pressure 104/69 08/22/2021 0651 EST Pulse - - Temperature 37 ??C (98.6 ??F) 08/22/2021 0614 EST Respiratory Rate 19 08/22/2021 0651 EST Oxygen Saturation 97% 08/22/2021 0651 EST Inhaled Oxygen Concentration - - Weight - [...] older) documented as of this encounter Discharge Instructions Michelle Figueroa MD - 08/22/2021 Drink plenty of fluids Take 600mg of Ibuprofen every 6 hours as needed for discomfort Follow-up with PCP as needed Return for increasing shortness of breath, worsening symptoms or any other concerns. AttachmentsThe following attachments cannot be sent through Care Everywhere. Coronavirus Disease (COVID-19): General Info (Kenyan)documented in this encounter Medications at Time of Discharge Medication Sig Dispensed Refills Start Date End Date acetaminophen (TYLENOL) 325 Take 20.3 mL by 0 mg/10.15 mL solution mouth every 4 hours as needed for Pain. ibuprofen (ADVIL;MOTRIN) 100 Take 20 mL by mouth 0 03/04/2020 mg/5 mL suspension every 6 hours. ondansetron (ZOFRAN-ODT) 4 Take 1 Tab by mouth 15 Tab 2 03/04/2020 mg disintegrating tablet every 8 hours as needed for Nausea. documented as of this encounter Discharge Disposition Disposition Code Departure Means Destination Home or Self Jail documented in this encounter ED Notes Michelle Longo MD - 08/22/2021 0641 EST This patient received an evaluation and medical screening exam for emergent medical conditions at [facility] Emergency Department on 08/22/2021 History of Present Illness HPI Sugey Sosa is a 41 y.o. female who was diagnosed with COVID-19 the day prior presents with complaint of chest pain that awoke her from sleep. Patient states that she has had a fever at home. Patient's 2 daughters are also sick with similar symptoms. No difficulty breathing. Patient was given aspirin, nitro and Tylenol by EMS prior to arrival. Patient states she now has a headache. No cough. No nausea or vomiting. Patient has not received the COVID-19 vaccination. Data Reviewed this visit No current facility-administered medications for this encounter. Current Outpatient Medications Medication Sig Dispense Refill ??? acetaminophen (TYLENOL) 325 mg/10.15 mL solution Take 20.3 mL by mouth every 4 hours as needed for Pain. ??? ibuprofen (ADVIL;MOTRIN) 100 mg/5 mL suspension Take 20 mL by mouth every 6 hours. ??? ondansetron (ZOFRAN-ODT) 4 mg disintegrating tablet Take 1 Tab by mouth every 8 hours as needed for Nausea. 15 Tab 2 Review of Symptoms ROS A 10-point review of systems was performed. The historian answered negative to all questions with the exceptions of those explicitly detailed as positives in the HPI. Pertinent negatives are also explicitly stated. Physical Exam Vital Signs Vital Signs Temp: 37 ??C (98.6 ??F) Temp src: Oral Heart Rate: 92 BPM Resp: 19 SpO2: 97 % Pulse From Oximetry: 93 BPM BP: 104/69 BP MAP: 78 mm Hg Nursing notes and vital signs were reviewed. Physical Exam Vitals and nursing note reviewed. Constitutional: General: She is not in acute distress. Appearance: Normal appearance. She is not ill-appearing or toxic-appearing. HENT: Head: Normocephalic and atraumatic. Right Ear: External ear normal. Left Ear: External ear normal. Nose: Nose normal. Mouth/Throat: Mouth: Mucous membranes are moist. Eyes: Extraocular Movements: Extraocular movements intact. Pupils: Pupils are equal, round, and reactive to light. Cardiovascular: Rate and Rhythm: Normal rate and regular rhythm. Heart sounds: Normal heart sounds. Pulmonary: Effort: Pulmonary effort is normal. Breath sounds: Normal breath sounds. Abdominal: Palpations: Abdomen is soft. There is no mass. Tenderness: There is no abdominal tenderness. Musculoskeletal: General: No swelling or deformity. Normal range of motion. Cervical back: Normal range of motion and neck supple. Skin: General: Skin is warm and dry. Neurological: General: No focal deficit present. Mental Status: She is alert and oriented to person, place, and time. Psychiatric: Mood and Affect: Mood normal. Behavior: Behavior normal. ED Course/Medical Decision Making Final diagnoses: COVID-19 41 y.o. female who was diagnosed with COVID-19 the day prior presents with complaint of chest pain that awoke her from sleep. Patient states that she has had a fever at home. Patient's 2 daughters arealso sick with similar symptoms. No difficulty breathing. Patient does not appear to be in any acute distress. EKG shows a normal sinus rhythm at 93. No acuteischemic changes. Chest x-ray obtained. Chest x-ray negative for acute pathology. O2 sat of 98% on room air. Patient is afebrile. Will discharge home to follow-up with PCP as needed. Return precautions provided. Procedures Procedures None Data Interpretation/Results Laboratory results independently reviewed, significant for: Labs Reviewed - No data to display Imaging obtained was reviewed and independently interpreted: XR CHEST PORTABLE 1 VIEW Final Result No acute findings. THIS DOCUMENT HAS BEEN ELECTRONICALLY SIGNED BY CRISTHIAN JOHNSON MD FOR ANY QUESTIONS OR CONCERNS REGARDING THIS REPORT PLEASE CALL [facility] AT [phone] EKG An EKG was obtained and independently interpreted: EKG: Normal sinus rhythm at 93. No acute changes. Normal intervals. Disposition Home Disposition decisions were made weighing risks and benefits of hospitalization vs. outpatient treatment, the risk for further decompensation, and the patient???s wishes. - If discharged: the patient was stable, improved, or requested discharge. Prior to discharge my usual and customary return precautions were reviewed with the patient and/or family. This included follow-up instructions and reasons to return to the Emergency Department if condition worsens, does not improve as expected, or other new concerns arise. - If admitted: the patient???s condition was severe enough to require additional inpatient evaluation and treatment, or the patient was at risk of sudden decompensation. ani Cullen RN - 08/22/2021 0624 EST Patient reports a BARAJAS that has persisted through the night, worse after nitroglycerine in route and unresolved by the IV tylenol she received prior to arrival Lani Cullen RN - 08/22/2021 0622 EST 12 Lead EKG Performed by Lani Cullen RN and shown to No att. providers found. documented in this encounter Plan of Treatment Not on filedocumented as of this encounter Procedures Procedure Name Priority Date/Time Associated Diagnosis Comme nts ECG REPORT - 08/22/2021 8:48 EST SCANNED XR CHEST PORTABLE 1 STAT 08/22/2021 6:33 EST R esults for this VIEW procedure are i n the results section. EKG 12-LEAD STAT 08/22/2021 6:06 EST Results for this procedure are i n the results section. documented in this encounter Results XR CHEST PORTABLE 1 VIEW (08/22/2021 6:33 EST) Anatomical Region Laterality Modality Computed Radiography Specimen Impressions [facility] - 08/22/2021 6:58 EST No acute findings. THIS DOCUMENT HAS BEEN ELECTRONICALLY SI GNED BY CRISTHIAN JOHNSON MD FOR ANY QUESTIONS OR CONCERNS REGARDING THIS REPORT PLEASE CALL [facility] AT [phone] Narrative [facility] - 08/22/2021 6:58 EST PROCEDURE INFORMATION: Exam: XR Chest Exam date and time: 08/22/2021 6:25 AM Age: 41 years old Clinical indication: Other: Chest pain, covid TECHNIQUE: Imaging protocol: XR of the chest. Views: 1 view. COMPARISON: CT ABDOMEN PELVIS WITH CONTRAST 03/31/20 7:23 PM FINDINGS: Tubes, catheters and devices: Overlying monitoring leads. Lungs: Unremarkable. No consolidation. Pleural spaces: Unremarkable. No pleural effusion. No pneumothorax. Heart/Mediastinum: Unremarkable. No card iomegaly. Bones/joints: Unremarkable. Upper abdomen: Left upper quadrant surgi césar clips. Procedure Note Cristhian Johnson MD - 08/22/2021 PROCEDURE INFORMATION: Exam: XR Chest Exam date and time: 08/22/2021 6:25 AM Age: 41 years old Clinical indication: Other: Chest pain, covid TECHNIQUE: Imaging protocol: XR of the chest. Views: 1 view. COMPARISON: CT ABDOMEN PELVIS WITH CONTRAST 03/31/20 7:23 PM FINDINGS: Tubes, catheters and devices: Overlying monitoring leads. Lungs: Unremarkable. No consolidation. Pleural spaces: Unremarkable. No pleural effusion. No pneumothorax. Heart/Mediastinum: Unremarkable. No card iomegaly. Bones/joints: Unremarkable. Upper abdomen: Left upper quadrant surgi césar clips. IMPRESSION No acute findings. THIS DOCUMENT HAS BEEN ELECTRONICALLY SI GNED BY CRISTHIAN JOHNSON MD FOR ANY QUESTIONS OR CONCERNS REGARDING THIS REPORT PLEASE CALL [facility] AT [phone] Performing Organization Address City/State/ZIP Code Phon e Number [facility] EKG 12-LEAD (08/22/2021 6:06 EST) Specimen Narrative [facility] - 8:42 EST ? [facility] ? Test Date: ?2021-08-22 Pat Name: ? SUGEY SOSA ? Department: ? Room: ? B00 Gender: ? Female ? Joiner Helper: ?? WRK : ?1980 ? Requested By: ROCKY Mosqueda Order Number: [id number] ? Reading MD: ?? AJAY SCANLON MD ? Measurements Intervals ?[place] ? Rate: ? 93 ? P: ?39 [place]: ? 138 ?QRS: ?10 QRSD: ? 76 ? T: ?15 QT: ? 364 ? QTc: ?452 ? Interpretive Statements Normal sinus rhythm Low voltage QRS Compared to ECG 03/31/2020 20:21:21 No significant changes I reviewed the tracing and have either a greed or edited the findings in this report. Electronically Signed On 2 8:42:12 EST by AJAY SCANLON MD. Procedure Note Ajay Scanlon MD - 08/22/2021 [facility] Test Date: 2021-08-22 Pat Name: SUGEY SOSA Department: Room: B00 Gender: Female Joiner Helper: KHALIF : 1980 Requested By: ROCKY Mosqueda Order Number: [id number] Reading MD: Reji SCANLON MD Measurements Intervals [place] Rate: 93 P: 39 [place]: 138 QRS: 10 QRSD: 76 T: 15 QT: 364 QTc: 452 Interpretive Statements Normal sinus rhythm Low voltage QRS Compared to ECG 03/31/2020 20:21:21 No significant changes I reviewed the tracing and have either a greed or edited the findings in this report. Electronically Signed On 8:42:12 EST by AJAY SCANLON MD. Performing Organization Address City/State/ZIP Code Phon e Number [facility] documented in this encounter Visit Diagnoses Diagnosis COVID-19 - Primary documented in this encounter Orders Procedures Count Last Ordered Date First Ordered Date ECG REPORT - SCANNED 1 08/22/2021 documented in this encounter Care Teams Embroidery Patternmaker Relationship Specialty Start Date End Date Anthony Gomez MD PCP - General 03/10/19 [address] [place] [address] documented as of this encounter
--- OUTSIDE RECORDS SUMMARY | 2021-11-10 11:30 | XMS_ITS | Encounter Summary ---
:1980 Author Organization [facility] Address [address] [place] [address] Care Team Providers Name Role Phone Anthony Gomez MD Primary Care Provider Encounter Details Date Type Department Care Team Description 02/11/2021 Lab Requisition [facility] Outr Resulting Lab, Pathology & Laboratory Provider General acute hospital [address] [place] [address] Social History Tobacco Use Types Packs/Day Years [...] Name Priority Date/Time Associated Diagnosis Comme nts LYME AB Routine 02/10/2021 15:35 Results for this EDT procedure are i n the results section. RHEUMATOID FACTOR Routine 02/10/2021 15:35 Result s for this EDT procedure are i n the results section. documented in this encounter Results LYME AB (02/10/2021 15:35 EDT) Pathologist Sig nature Lyme Ab Negative Negative [facility] Specimen Blood - Venous blood (substance) Performing Organization Address City[facility] Code Phon e Number [facility] [address] [place] [address] SERVICES RHEUMATOID FACTOR (02/10/2021 15:35 EDT) Pathologist Sig nature Rheumatoid Factor <8.6 <12.0 IU/mL [facility] Specimen Blood - Venous blood (substance) Performing Organization Address City/[facility] Phon e Number [facility] [address] [place] [address] SERVICES documented in this encounter Visit Diagnoses Not on filedocumented in this encounter Care Teams Prison Teacher Relationship Specialty Start Date End Date Anthony Gomez MD PCP - General 03/10/19 [address] [place] [address] documented as of this encounter
--- OUTSIDE RECORDS SUMMARY | 2021-11-10 11:30 | XMS_ITS | Encounter Summary ---
:1980 Author Organization [facility] Address [address] [place] [address] Care Team Providers Name Role Phone Anthony Gomez MD Primary Care Provider Reason for Visit Reason Comments Post-OP Follow Up Heller myotomy Encounter Details Date Type Department Care Team Description 03/28/2020 Post-op Visit [facility] Bhaskar Booth Acha (Primary General Surgery - Kali Osorio) [address] [address] [facility] [phone] [place], [address] [place] [address] (Wo rk) Social History Tobacco [...] Sign Reading Time Taken Comments Blood Pressure 151/104 03/28/2020 1426 EDT Pulse 89 03/28/2020 1426 EDT Temperature - - Respiratory Rate - - Oxygen Saturation - - Inhaled Oxygen Concentration - - Weight 96 kg (211 lb 9.6 oz) 03/28/2020 1426 EDT Height 167.9 cm (5' 6.1) 03/28/2020 1426 EDT Body Mass Index 34.05 03/28/2020 1426 EDT documented in this encounter Functional Status [...] or older) documented as of this encounter Progress Notes Bhaskar Booth MD - 03/28/2020 2858 EDT Doing well now a month out from her laparoscopic Heller myotomy. She is tolerating almost all foods.She feels so much better than she did before the surgery. She still has a little problem eating bread, but again she said it is improved than it was preoperatively. Occasional heartburn, uses Tums, otherwise feels well. OBJECTIVE: Her incisions are well healed. Abdomen is soft and benign. ASSESSMENT AND PLAN: Doing well after laparoscopic Heller myotomy with Donnell fundoplication. I told her to avoid sharp objects such as tortilla chips for at least a year, use antacids, H2 blockers or PPIs as needed. She should expect improvement, but never perfect, we cannot make the peristalsis return to her esophagus and sometimes it does progress. Low chance of requiring a post-procedure dilatation. Follow up with me in the future as needed. cc: MD Anthony Moulton MD documented in this encounter Plan of Treatment Not on filedocumented as of this encounter Visit Diagnoses Diagnosis Achalasia - Primary Achalasia and cardiospasm documented in this encounter Care Teams Gm/Svp Global Publisher Business Relationship Specialty Start Date End Date Anthony Gomez MD PCP - General 03/10/19 [address] [place] [address] documented as of this encounter
--- OUTSIDE RECORDS SUMMARY | 2021-11-10 11:30 | XMS_ITS | Encounter Summary ---
:1980 Author Organization [facility] Address [address] [place] [address] Care Team Providers Name Role Phone Anthony Gomez MD Primary Care Provider Encounter Details Date Type Department Care Team Description 08/22/2021 Travel Social History Tobacco Use Types Packs/Day [...] on filedocumented in this encounter Care Teams Supervisor Wound Relationship Specialty Start Date End Date Anthony Gomez MD PCP - General 03/10/19 [address] [place] [address] documented as of this encounter
--- OUTSIDE RECORDS SUMMARY | 2021-11-10 11:30 | XMS_ITS | Encounter Summary ---
:1980 Author Organization [facility] Address [address] [place] [address] Care Team Providers Name Role Phone Anthony Gomez MD Primary Care Provider Reason for Visit Reason Onset Date Comments Follow-up Diagnostic PSG 01/20/2020 Encounter Details Date Type Department Care Team Description 01/20/2020 Telephone [facility] Bhaskar Booth w-up Diagnostic General Surgery - Kali Osorio [address] [address] [place], [place] [phone] (Wo rk) Social History Tobacco Use Types [...] this encounter Miscellaneous Notes Telephone Encounter - Julianne Church - 01/20/2020 1120 EDT Checking on patient to see if she is ready to schedule surgery at this time. documented in this encounter Plan of Treatment Not on filedocumented as of this encounter Visit Diagnoses Not on filedocumented in this encounter Care Teams Manager Of Marketing Relationship Specialty Start Date End Date Anthony Gomez MD PCP - General 03/10/19 [address] [place] [address] documented as of this encounter
--- OUTSIDE RECORDS SUMMARY | 2021-11-10 11:30 | XMS_ITS | Encounter Summary ---
:1980 Author Organization [facility] Address [address] [place] [address] Care Team Providers Name Role Phone Anthony Gomez MD Primary Care Provider Encounter Details Date Type Department Care Team Description 03/03/2020 Travel Social History Tobacco Use Types Packs/Day [...] on filedocumented in this encounter Care Teams Optimization Manager Relationship Specialty Start Date End Date Anthony Goemz MD PCP - General 03/10/19 [address] [place] [address] documented as of this encounter
--- OUTSIDE RECORDS SUMMARY | 2021-11-10 11:30 | XMS_ITS | Encounter Summary ---
:1980 Author Organization [facility] Address [address] [place] [address] Care Team Providers Name Role Phone Anthony Gomez MD Primary Care Provider Reason for Visit Reason Onset Date Comments Follow-up Diagnostic PSG 03/02/2020 Encounter Details Date Type Department Care Team Description 03/02/2020 Telephone [facility] Bhaskar Booth w-up Diagnostic General Surgery - Kali Osorio [address] [address] [place], [place] [phone] (Wo rk) Social History Tobacco Use Types [...] Notes Telephone Encounter - Julianne Church - 03/02/2020 0922 EDT Check in @ 10;00 level three, nothing to eat after midnight, 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 documented in this encounter Plan of Treatment Not on filedocumented as of this encounter Visit Diagnoses Not on filedocumented in this encounter Care Teams Tripoler Relationship Specialty Start Date End Date Anthony Gomez MD PCP - General 03/10/19 [address] [place] [address] documented as of this encounter
--- OUTSIDE RECORDS SUMMARY | 2021-11-10 11:30 | XMS_ITS | Encounter Summary ---
:1980 Author Organization [facility] Address [address] [place] [address] Care Team Providers Name Role Phone Anthony Gomez MD Primary Care Provider Reason for Visit Reason Comments Procedure Encounter Details Date Type Department Care Team Description 04/01/2020 Office Visit [facility] - Jie Christian, Disp lacement of [facility] intrauterine [address] [facility] contraceptive device[place] [address] [address] initial encounter [phone] [place], [place] (Primary Dx) [phone] Social History Tobacco Use Types Packs/Day [...] Sign Reading Time Taken Comments Blood Pressure 100/80 04/01/2020 1107 EDT Pulse - - Temperature - - Respiratory Rate 16 04/01/2020 1107 EDT Oxygen Saturation - - Inhaled Oxygen Concentration - - Weight 96.2 kg (212 lb) 04/01/2020 1107 EDT Height 167.9 cm (5' 6.1) 04/01/2020 1107 EDT Body Mass Index 34.11 04/01/2020 1107 EDT documented in this encounter Functional Status [...] documented as of this encounter Progress Notes Jie Christian MD - 04/01/2020 1100 EDT HPI: Sugey Cisneros is a 40 y.o. who presents for f/u from ED visit yesterday. 03/03 had surgery for throat (heller myotomy). She presented to the ED 03/31 with sudden onset epigastric pain. She is having gas and bloating lately. She received narcotics and had a CT scan which showed penetration of IUD arm through posterior myometrium. She denies fever.She has a h/o PCOS and was using IUD for control of her cycles. She cannot take pills at this time. ROS: ROS TRUSS BUILDER History: Patient's last menstrual period was 2020. OB History Para Term AB Living 5 2 3 2 SAB TAB Ectopic Multiple Live Births 2 1 2 # Outcome Date GA Lbr Chilango/2nd Weight Sex Delivery Anes PTL Lv 5 Para 4 Para 3 Ectopic 2 SAB 1 SAB Past Medical History: Diagnosis Date ??? Achalasia ??? Activity, other involving cardiorespiratory exercise 9/10/20 1-2 flights of stairs without getting SOB, hiking, bikes ??? Anesthesia complication 02/25/20: Higher doses of medication was needed, didn't last as long. Pt gets fever, chills, pain, bruising for1 wk post op. S/s start 2-4 days post op. ??? Anxiety 02/25/20 under control per Pt ??? Back pain ??? Carpal tunnel syndrome on left ??? Esophageal stricture ??? History of epidural anesthesia ??? History of general anesthesia ??? Obesity, unspecified ??? PCOS (polycystic ovarian syndrome) ??? Snores Past Surgical History: Procedure Laterality Date ??? CARPAL TUNNEL RELEASE Right 04/06/2019 ??? SECTION 08/15/20052005, 2018 ??? SECTION 10/20/2018 ??? THROAT SURGERY 03/03/2020 hellermyotomy Social History Tobacco Use ??? Smoking status: Never Smoker ??? Smokeless tobacco: Never Used Substance Use Topics ??? Alcohol use: Never Frequency: Never ??? Drug use: Never Family History Problem Relation Age of Onset ??? *Other(comment) Sister anes complications, same as pt. Allergies Allergen Reactions ??? Sulfa (Sulfonamide Antibiotics) Shortness Of Breath ??? Morphine Rash Causes a rash and it is not effective for pain relief. ??? Penicillins Rash Current Outpatient Medications Medication ??? acetaminophen (TYLENOL) 325 mg/10.15 mL solution ??? ibuprofen (ADVIL;MOTRIN) 100 mg/5 mL suspension ??? levonorgestrel (MIRENA) 20 mcg/24 hours (5 yrs) 52 mg IUD ??? ondansetron (ZOFRAN-ODT) 4 mg disintegrating tablet No current facility-administered medications for this visit. Objective: BP 100/80 Resp 16 Ht 167.9 cm (66.1) Wt 96.2 kg (212 lb) LMP 2020 Comment: mirena BMI 34.11 kg/m?? Exam chaperoned by Kami Luna RN Physical Exam General: Pleasant, alert, cooperative Neck: supple Pelvic: normal external genitalia, vaginal mucosa moist and pink, cervix normal in appearance-IUD strings seen 3cm in length-IUD removed intact w/o difficulty Skin: warm and dry Neuro: Alert and oriented x 3 IUD Removal Procedure: Written consent obtained after reviewed r/b and altnernatives. In dorsal lithotomy position, a speculum was inserted and the cervix visualized. The IUD strings were present. Ring forceps were applied to the IUD strings and the IUD was removed without complications. Patient tolerated well. Assessment/Plan: Sugey Cisneros is a 40 y.o. who presents with 1. Displacement of intrauterine contraceptive device, initial encounter HCG neg IUD removed without incident and was intact and viewed by patient I had a discussion about options for contraception and a method to help with PCOS-she cannot take pills and does not like injections and was agreeable to scheduling Nexplanon insert. Advised abstinanceuntil then. - POCT TEST, VISUAL READ Jie Christian MD documented in this encounter Plan of Treatment Not on filedocumented as of this encounter Procedures Procedure Name Priority Date/Time Associated Diagnosis Comme nts POCT TEST, Routine 04/01/2020 Displacement of Resu lts for this VISUAL READ intrauterine procedure are i n the contraceptive device, result s section. initial encounter documented in this encounter Results POCT TEST, VISUAL READ (04/01/2020) Pathologist Sig nature Test, Urine, Negative Negative [facility] POC Control Line Present Yes [facility] Background Clear? Yes [facility] Specimen Urine - Urine (substance) Performing Organization Address City/State/ZIP Code Phon e Number [facility] documented in this encounter Visit Diagnoses Diagnosis Displacement of intrauterine contracepti ve device, initial encounter - Primary documented in this encounter Discontinued Medications Medication Sig Discontinue Reason Start Date End Date oxyCODONE (ROXICODONE) 5 Take 5 mL by mouth Therapy completed 03/0404/01/2020 mg/5 mL solution every 6 hours as needed for Pain. Daily Max: 20 mg documented as of this encounter Care Teams Community Relations Specialist Relationship Specialty Start Date End Date Anthony Gomez MD PCP - General 03/10/19 [address] [place] [address] documented as of this encounter
--- OUTSIDE RECORDS SUMMARY | 2021-11-10 11:30 | XMS_ITS | Encounter Summary ---
:1980 Author Organization [facility] Address [address] [place] [address] Care Team Providers Name Role Phone Anthony Gomez MD Primary Care Provider Reason for Visit Reason Onset Date Comments Contraception 04/01/2020 Encounter Details Date Type Department Care Team Description 04/01/2020 Telephone [facility] Jie Christian MD Contraception [facility] [address] [facility] [address] [facility] [address] [place] [address] [place] [address] (Wo rk) Social History Tobacco Use Types [...] this encounter Miscellaneous Notes Telephone Encounter - Jie Christian MD - 04/01/2020 4988 EDT Alyssa can you please get this pt a Nexplanon device zurod. I asked ashok to schedule apt zurdo. TY documented in this encounter Plan of Treatment Not on filedocumented as of this encounter Visit Diagnoses Not on filedocumented in this encounter Care Teams Crm Administrator Relationship Specialty Start Date End Date Anthony Gomez MD PCP - General 03/10/19 [address] [place] [address] documented as of this encounter
--- OUTSIDE RECORDS SUMMARY | 2021-11-10 11:30 | XMS_ITS | Clinical Summary ---
:1980 Author Organization [facility] Address [address] [place] [address] Care Team Providers Name Role Phone Anthony Gomez MD Primary Care Provider Allergies Active Allergy Reactions Severity Noted Date Comments Morphine Rash 03/03/2020 Causes a rash a nd it is not effectiv e for pain relief. Penicillins Rash 10/21/2014 Sulfa (Sulfonamide Shortness Of Breath High 06/01/2011 Antibiotics) Medications Medication Sig Dispensed Refills Start Date End Date Status acetaminophen (TYLENOL) Take 20.3 mL by 0 03/04/2020 Active 325 mg/10.15 mL solution mouth every 4 hours as needed for Pain. ibuprofen (ADVIL;MOTRIN) Take 20 mL by 0 03/04/2020 Active 100 mg/5 mL suspension mouth every 6 hours. ondansetron (ZOFRAN-ODT) Take 1 Tab by 15 Tab 2 03/04/2020 Active 4 mg disintegrating mouth every 8 tablet hours as needed for Nausea. 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 Encounters Date Type Specialty Care Team Description 10/19/2021 Lab Requisition Clinical Laboratory Outr Resulting Lab, Provider 10/17/2021 Lab Requisition Clinical Laboratory Outr Resulting Lab, Provider 08/22/2021 Emergency Emergency Medicine Michelle Longo COVID-1 9 (Primary MD Saba Dx) 08/22/2021 Travel from Last 3 Months Surgical History Surgery Date Site/Laterality Comments CARPAL TUNNEL RELEASE 04/06/2019 Right SECTION 08/15/20052005, 2019 SECTION 10/20/2018 THROAT SURGERY 03/03/2020 hellermyotomy Medical History Medical History Date Comments Achalasia Obesity, unspecified PCOS (polycystic ovarian syndrome) Esophageal stricture Back pain Carpal tunnel syndrome on left History of general anesthesia History of epidural anesthesia Activity, other involving 02/25/20 1-2 fl ights of stairs cardiorespiratory exercise without getti ng SOB, hiking, bikes Snores Anxiety 02/25/20 under contro l per Pt Anesthesia complication 02/25/20: Higher doses of medication was neede d, didn't last as long. Pt get s fever, chills, pain, bruisi ng for1 wk post op. S/s start 2 -4 days post op. Nexplanon insertion 04/12/2020 Family History Medical History Relation Name Comments *Other(comment) Sister anes complicatio ns, same as pt. Relation Name Status Comments Father Alive Mother Alive Sister Other fevers after ane s, 2-4 days post op Social History Tobacco Use Types Packs/Day Years [...] at Date Recorded Female 01/24/2020 16:07 EDT Obstetrics History Grav Para Term Pre Abrt (TAB) (SAB) (Ect) Mult Lvng Comments 5 2 3 2 1 2 Date Outcome GA Total Labor/2nd/3rd Weight Sex Delivery Anes PTL Razia A 1 A5 Name Clin Labor SAB SAB Ectopic Para Para Last Filed Vital Signs Vital Sign Reading Time Taken Comments Blood Pressure 104/69 08/22/2021 0651 EST Pulse 89 03/28/2020 1426 EDT Temperature 37 ??C (98.6 ??F) 08/22/2021 0614 EST Respiratory Rate 19 08/22/2021 0651 EST Oxygen Saturation 97% 08/22/2021 0651 EST Inhaled Oxygen Concentration - - Weight 96.2 kg (212 lb) 04/12/2020 1007 EDT Height 167.9 cm (5' 6.1) 04/12/2020 1007 EDT Body Mass Index 34.11 04/12/2020 1007 EDT Plan of Treatment Health Maintenance Due Date Last Done Comments Hepatitis C Screen 1980 COVID-19 Vaccine (1) 1987 Procedures Procedure Name Priority Date/Time Associated Comments Diagnosis GIARDIA AND Routine 10/18/2021 19:30 Results for this CRYPTOSPORIDIUM ANTIGENS EDT pro cedure are in the results section. OVA/PARASITE EXAM Routine 10/18/2021 19:30 Result s for this EDT procedure are i n the results section. CELIAC DISEASE PANEL Routine 10/17/2021 12:08 Res ults for this EDT procedure are i n the results section. ECG REPORT - SCANNED 08/22/2021 8:48 EST XR CHEST PORTABLE 1 VIEW STAT 08/22/2021 6:33 Results for this EST procedure are i n the results section. EKG 12-LEAD STAT 08/22/2021 6:06 Results for this EST procedure are i n the results section. from Last 3 Months Results GIARDIA AND CRYPTOSPORIDIUM ANTIGENS (10/18/2021 19:30 EDT) Giardia and Cryptosporidium Cryptosporidium [facility] Cryptosporidium Antigen Neg and Antigen Neg and CENTER Giardia Antigen Neg Giardia Antigen Neg LABORATORY SERVICES Specimen Feces - Specimen from rectum (specimen) Performing Organization Address City/[facility]/ZIP Code Phon e Number [facility] [address] [place] [address] SERVICES OVA/PARASITE EXAM (10/18/2021 19:30 EDT) Pathologist Sig nature Parasite No ova and parasites [facility] seen. LABORATORY SERVICES Specimen Feces - Specimen from rectum (specimen) Narrative [facility] SERVICES - 10/20/2021 10:58 EDT (If Cryptosporidium, Cyclospora, or Micr osporidium are suspected, specific tests must be requested.) Single negative specimen does not rule out the possibility of a parasitic infection. Performing Organization Address City/[facility] Code Phon e Number [facility] [address] [place] [address] SERVICES CELIAC DISEASE PANEL (10/17/2021 12:08 EDT) Tissue <1.2 <4.0 U/mL [facility] Transglutaminase Comment: CENTER Antibody IGA A negative result may be due to IgA deficiency and does not rule out celiac disease. LABORATORY SERVICES ? Negative: ??<4.0 U/mL ? Weak Positive: ??4.0 - 10.0 U/mL ? Positive: ??>10.0 U/mL Results were obtained with atul brandt Cytodyn QUANTA Lite R h-tTG IgA FINA assay on the [employer] DSX. IgA 126 85 - 499 [facility] mg/dL CENTER LABORATORY SERVICES Celiac Disease Negative Serology. [facility] MEDICAL Interpretation Celiac disease CENTER unlikely. LABORATORY Approximately 10% of SERVICES patients with celiac disease are seronegative. Patients who are already adhering to a gluten-free diet may also be seronegative. If celiac disease is highly clinically suspected, referral to gastroenterology for additional evaluation is recommended. Specimen Blood - Venous blood (substance) Performing Organization Address City/State/ZIP Code Phon e Number [facility] [address] [place] [id number] SERVICES ECG REPORT - SCANNED (08/22/2021 8:48 EST) Specimen Narrative This result has an attachment that is no t available. XR CHEST PORTABLE 1 VIEW (08/22/2021 6:33 EST) Anatomical Region Laterality Modality Computed Radiography Specimen Impressions [facility] - 08/22/2021 6:58 EST No acute findings. THIS DOCUMENT HAS BEEN ELECTRONICALLY SI GNED BY CRISTHIAN JOHNSON MD FOR ANY QUESTIONS OR CONCERNS REGARDING THIS REPORT PLEASE CALL [facility] AT [phone] Narrative [facility] - 08/22/2021 6:58 EST [...] REGARDING THIS REPORT PLEASE CALL [facility] AT [phone] Performing Organization Address City/State/ZIP Code Phon e Number [facility] EKG 12-LEAD (08/22/2021 6:06 EST) Specimen Narrative [facility] [place] - 8:42 EST ? [facility] ? Test Date: ?2021-08-22 Pat Name: ? SUGEY SOSA ? Department: ? Room: ? B00 Gender: ? Female ? Raised Printer: ?? KHALIF : ?1980 ? Requested By: ROCKY Mosqueda Order Number: [id number] ? Reading : ?? AJAY SCANLON MD ? Measurements Intervals ?Shepherd ? Rate: ? 93 ? P: ?39 DE: ? 138 ?QRS: ?10 QRSD: ? 76 ? T: ?15 QT: ? 364 ? QTc: ?452 ? Interpretive Statements Normal sinus rhythm Low voltage QRS Compared to ECG 03/31/2020 20:21:21 No significant changes I reviewed the tracing and have either a greed or edited the findings in this report. Electronically Signed On 8:42:12 EST by AJAY SCANLON MD. Procedure Note Ajay Scanlon MD - 08/22/2021 [facility] Test Date: 2021-08-22 Pat Name: SUGEY SOSA Department: Room: B00 Gender: Female Raised Printer: KHALIF : 1980 Requested By: ROCKY Mosqueda Order Number: [id number] Reading MD: Reji SCANLON MD Measurements Intervals Shepherd Rate: 93 P: 39 DE: 138 QRS: 10 QRSD: 76 T: 15 QT: 364 QTc: 452 Interpretive Statements Normal sinus rhythm Low voltage QRS Compared to ECG 03/31/2020 20:21:21 No significant changes I reviewed the tracing and have either a greed or edited the findings in this report. Electronically Signed On 2 8:42:12 EST by AJAY SCANLON MD. Performing Organization Address City/State/ZIP Code Phon e Number [facility] from Last [facility] Months Insurance Payer Benefit Plan / Subscriber ID Effective Phone Address T ype Group Dates [employer] [id number] 2019-Pres [phone] [address] Other [phone] [place] [address] Sugey Sosa I Personal/Family Self 1980 [address] [place] [address] Sugey Sosa I Personal/Family Self 1980 [address] [place] [address] Advance Directives For more information, please contact: [phone] Latest Code Status on File Code Status Date Activated Date Inactivated Comments Full Code 03/03/2020 19:48 03/04/2020 12:13 Reason for decision includes: Full code consistent with over all plan of care Who participated in the discussion? Not Discussed Care Teams Tub Attendant Relationship Specialty Start Date End Date Anthony Gomez MD PCP - General 03/10/19 [address] [place], [place] [id number]
--- OUTSIDE RECORDS SUMMARY | 2021-11-10 11:30 | XMS_ITS | Encounter Summary ---
:1980 Author Organization [facility] Address [address] [place] [address] Care Team Providers Name Role Phone Anthony Gomez MD Primary Care Provider Reason for Visit Reason Comments Procedure Contraception Medication Prior Authorization (Routine) - Authorization Not Required Specialty Diagnoses / Procedures Referred By Contact Refer red To Contact Obstetrics & Diagnoses Contraception management Delisa Anne MD [facility] Gyne[facility] Procedures [place] ETONOGESTREL IMPLANT SYSTEM [address] [facility] [address] [facility] [address] [place] [address] [place] Phone: [phone] Referral ID Status Reason Start Expiration Visits Visits Date Date Requested Authorized [id number] Authorization Not 3 3 Required Encounter Details Date Type Department Care Team Description 04/12/2020 Procedure visit [facility] - Jie Christian N explanon insertion [facility] (Primary Dx) [address] [facility] [address] [place] [address] [address] [place] [address] Social History Tobacco Use Types Packs/Day [...] Sign Reading Time Taken Comments Blood Pressure 110/80 04/12/2020 1007 EDT Pulse - - Temperature - - Respiratory Rate 16 04/12/2020 1007 EDT Oxygen Saturation - - Inhaled Oxygen Concentration - - Weight 96.2 kg (212 lb) 04/12/2020 1007 EDT Height 167.9 cm (5' 6.1) 04/12/2020 1007 EDT Body Mass Index 34.11 04/12/2020 1007 EDT documented in this encounter Functional Status [...] or older) documented as of this encounter Patient Instructions Patient InstructionsKami Luna RN - 04/12/2020 10:20 EDT Images from the original note were not included. [facility] Patient Instructions Implant for Control: Care Instructions Your Care Instructions The implant is used to prevent . It's a thin guadalupe about the size of a matchstick that is inserted under the skin (subdermal) on the inside of your arm. The implant prevents for 3 years. After it is put in, you don't have to do anything else to prevent . Follow-up care is a rosales part of your treatment and safety. Be sure to make and go to all appointments, and call your doctor if you are having problems. It's also a good idea to know your test results and keep a list of the medicines you take. How can you care for yourself at home? How do you use the subdermal implant? ?? The implant is put in by your doctor or another trained health professional. It only takes a few minutes. This can also be done right after you give . Your doctor will remove the implant when it needs to be taken out. ?? An adhesive bandage and a tight (pressure) bandage will be placed over the site. This helps reduce swelling and bruising. ?? Ask your doctor if you need to use backup control, such as a condom, for a week after insertion. Whether you need to do this depends on where you are in your cycle. How can you care for the insertion site? ?? Remove the pressure bandage after 24 hours. Keep the area dry. ?? Keep an adhesive bandage on the site for 3 to 5 days after the procedure. ?? If you have pain, use an ice pack or take an gzez-hqa-eguujea pain medicine. Some soreness or bruising is normal. What else do you need to know? ?? It's safe to use while . ?? The implant has side effects. ? You may have changes in your period. Your period may stop. You may also have spotting or bleeding between periods. ? You may have mood changes, less interest in sex, or weight gain. ?? The implant can stay in place for up to 3 years to prevent . But your doctor may talk toyou about leaving it in for longer. ? If you don't replace the implant and don't use another form of control, you could get . ? If you have the implant removed, you'll have to find another method of control. If you don't, you may get . ? Even if you are planning to get , you have to have the implant removed. ?? Check with your doctor before you use any other medicines. This includes nnei-wvy-zovtjll medicines, vitamins, herbal products, and supplements. control hormones may not work as well to prevent when combined with other medicines. ?? The implant doesn't protect against sexually transmitted infections (STIs), such as herpes or HIV/AIDS. If you're not sure if your sex partner might have an STI, use a condom to protect against infection. When should you call for help? Call 911 anytime you think you may need emergency care. For example, call if: ? You have shortness of breath. ? You have chest pain. ? You passed out (lost consciousness). ? You cough up blood. Call your doctor now or seek immediate medical care if: ? You have severe pain or numbness and tingling in the arm where the implant was inserted. ? You have increased pain, swelling, warmth, or redness at the insertion site. ? You have signs of a blood clot in your leg (called a deep vein thrombosis), such as: ? Pain in your calf, back of the knee, thigh, or groin. ? Redness and swelling in your leg. Watch closely for changes in your health, and be sure to contact your doctor if: ? You can't feel your implant. ? You think your implant might be bent or broken in your arm. ? You think you might be . ? You have any problems with your control method. Where can you learn more? Go to [email or web address] or log into your [facility] account at [email or web address] Enter V768 in the search box to learn more about Implant for Control: Care Instructions. Current as of: July 28, 2019?Content Version: 12.6 ?? 4293-5862 [facility]. Care instructions adapted under license by [facility]. If you have questions about a medical condition or this instruction, always ask your healthcare professional. [facility] disclaims any warranty or liability for your use of this information. documented in this encounter Progress Notes Jie Christian MD - 04/12/2020 1020 EDT Subjective: 40 y.o. client here today for nexplanon insertion. Contraception for the past 3 weeks IUD then abstinance Patient's last menstrual period was 04/02/2020. Objective: BP 110/80 Resp 16 Ht 167.9 cm (66.1) Wt 96.2 kg (212 lb) LMP 04/02/2020 BMI 34.11 kg/m?? Test, Urine, POC Date/Time Value Ref Range Status 04/12/2020 Negative Negative Final Procedure Note: Nexplanon Insertion Procedure explained. Risks/benefits/side effects including expected bleeding changes reviewed and written consent obtained. Site identified in right arm and marked with surgical marker, prepped with betadine x 3. 4 mL 1% Lidocaine injected at insertion site. Nexplanon inserted using insertion device. Device palpated by provider and patient. Pressure dressing applied. Lot # [id number] Exp date May 19 2022 Assessment: Nexplanon Insertion Plan: Reviewed post-insertion instructions with patient and written handout given. Reviewed dosing of ibuprofen 400 - 600 mg every 6 hrs with food for discomfort. Leave pressure bandage in place x 24 hours.After 24 hrs, may remove pressure bandage and shower. Bandaid and steri-strips should remain for 5 days. After 1 week, will be protected against . Condoms or abstain in the interim. No STI protection with this method, condoms/safer sex encouraged. Seek care PRN for problem management with this method. Otherwise, routine follow up in 1 year. Jie Christian MD ami Staley RN - 04/12/2020 1020 EDT 04/02/2020 lmp. Denies SA since period. documented in this encounter Plan of Treatment Not on filedocumented as of this encounter Procedures Procedure Name Priority Date/Time Associated Diagnosis Comme nts POCT TEST, Routine 04/12/2020 Nexplanon insertion Results for this VISUAL READ procedure are i n the results section . documented in this encounter Results POCT TEST, VISUAL READ (04/12/2020) Pathologist Sig nature Test, Urine, Negative Negative [facility] POC Control Line Present Yes [facility] Background Clear? Yes [facility] Specimen Urine - Urine (substance) Performing Organization Address City/State/ZIP Code Phon e Number [facility] documented in this encounter Visit Diagnoses Diagnosis Nexplanon insertion - Primary Insertion of implantable subdermal contr aceptive documented in this encounter Administered Medications Inactive Administered Medications - up to 3 most recent administrations Medication Order MAR Action Action Date Dose Rate Site etonogestreL (NEXPLANON) Given 04/12/2020 11:00 EDT 68 mg Right Arm subdermal implant 68 mg 68 mg, subdermal, ONCE, 1 dose, Starting on Sat04/12/20 at 1059, Until Sat04/12/20 at 1100 lidocaine 1 % injection 4 mL Given 04/12/2020 11:04 EDT 4 mL Right A rm 4 mL, other, NOW X1, 1 dose, On Sat04/12/20 at 1130, Routine documented in this encounter Discontinued Medications Medication Sig Discontinue Reason Start Date End Date levonorgestrel (MIRENA) 1 Each by Therapy completed 04/12/2020 20 mcg/24 hours (5 yrs) intrauterine route 52 mg IUD once. documented as of this encounter Care Teams Rehabilitation Medicine Physician Relationship Specialty Start Date End Date Anthony Gomez MD PCP - General 03/10/19 [address] [place] [address] documented as of this encounter
--- OUTSIDE RECORDS SUMMARY | 2021-11-10 11:30 | XMS_ITS | Encounter Summary ---
:1980 Author Organization [facility] Address [address] [place] [address] Care Team Providers Name Role Phone Anthony Gomez MD Primary Care Provider Encounter Details Date Type Department Care Team Description 02/28/2020 Lab Requisition [facility] Outr Resulting Lab, Pathology & Laboratory Provider General acute hospital [address] [place] [address] Social History Tobacco Use Types Packs/Day Years [...] Priority Date/Time Associated Diagnosis Comme nts COVID-19 TEST [facility] Today 02/28/2020 10:15 LAB PCR EDT COVID-19 TESTING Routine 02/28/2020 10:15 Results for this EDT procedure are i n the results section. documented in this encounter Results COVID-19 TEST [facility] PCR (02/28/2020 10:15 EDT) Specimen Swab - Entire nasopharynx (body structur e) Performing Organization Address [facility] Phon e Number [facility] [address] [place] [address] SERVICES COVID-19 TESTING (02/28/2020 10:15 EDT) COVID-19 rt-PCR Negative Negative [facility] Result Comment: [facility] This test has not been FDA c leared or approved. This test has been authorized by FDA under an EUA for use by authorized laboratories. This test has been authorized only for detection of nucleic acid fro SERVICES m 2019-nCoV, not for any oth er viruses or pathogens. This test is only authorized for the duration of the declaration that circumstances exist justifying the authorization of emergency use of in vitro d iagnostic tests for detectio n and/or diagnosis of 2019-nCoV under section 564(b)(1) of Act, 21 U.S.C ?? 360bbb-3(b) (1), unless the authorization is terminated or revoked sooner. Negative results do not prec lude 2019-nCoV infection and should not be used as the sole basis for treatment or other patient management decisions. Negative results must be combined with clinical observa tions, patient history, and epidemiological informatio n. Performed on the Comic Wonder[employer] Fusion instrument Performing Lab [facility] SERVICES Specimen Swab Performing Organization Address City/[facility]/ZIP Code Phon e Number [facility] [address] [place] [address] SERVICES documented in this encounter Visit Diagnoses Not on filedocumented in this encounter Care Teams Silk Washing Machine Operator Relationship Specialty Start Date End Date Anthony Gomez MD PCP - General 03/10/19 [address] [place], [place] [phone] documented as of this encounter
--- OUTSIDE RECORDS SUMMARY | 2021-11-10 11:30 | XMS_ITS | Encounter Summary ---
:1980 Author Organization [facility] Address [address] [place] [address] Care Team Providers Name Role Phone Anthony Gomez MD Primary Care Provider Reason for Visit Reason Comments Follow-up zoom Encounter Details Date Type Department Care Team Description 02/11/2020 Telemedicine [facility] Bhaskar Booth (Primary General Surgery - Kali Osorio) [address] [address] [facility] [phone] [facility] [address] [place] [address] (Wo rk) Social History Tobacco [...] - Inhaled Oxygen Concentration - - Weight - - Height 167.6 cm (5' 6) 02/11/2020 0926 EDT Body Mass Index - - documented in [...] encounter Progress Notes Bhaskar Booth MD - 02/11/2020 0930 EDT SUBJECTIVE: I am seeing Sugey Cisneros in the office today. She is still having difficulty swallowing. Her visit today is in anticipation of surgery next month. Her weight is increased about 9 pounds, but she is having progressive dysphagia now to liquids as well as solids. She does have a history of achalasia as outlined in her previous initial consultation. OBJECTIVE: On exam, weight 204 pounds. Lungs clear. Heart: Regular rate and rhythm. Abdomen is soft and benign. ASSESSMENT AND PLAN: Achalasia. I think she would benefit from laparoscopic Heller myotomy. She willhave clear liquids the day before. Risks include infection, bleeding, injuring to surrounding structures, and full thickness injury to the esophagus or stomach as well as conversion to an open procedure. She understood all this and was willing to proceed. Surgery will be scheduled in the next few weeks. CC: Anthony Gomez MD documented in this encounter Plan of Treatment Not on filedocumented as of this encounter Visit Diagnoses Diagnosis Achalasia - Primary Achalasia and cardiospasm documented in this encounter Care Teams Rack Carrier Relationship Specialty Start Date End Date Anthony Gomez MD PCP - General 03/10/19 [address] [place] [address] documented as of this encounter
--- OUTSIDE RECORDS SUMMARY | 2021-11-10 11:30 | XMS_ITS | Encounter Summary ---
:1980 Author Organization [facility] Address [address] [place] [address] Care Team Providers Name Role Phone Anthony Gomez MD Primary Care Provider Reason for Visit Auth/Cert Specialty Diagnoses / Procedures Referred By Contact Refer red To Contact Diagnoses Achalasia Procedures AR LAP, ESOPHAGOMYOTOMY W FUNDOPLASTY Laparoscopic heller myotomy Referral ID Status Reason Start Date Expiration Date Visits Requ ested Visits Authorized [id number] 1 1 Encounter Details Date Type Department Care Team Description 03/03/2020 Anesthesia Event [facility] OR Princess Cortes MD [address] [facility] e [address] [place], [place] [id number] [place] [address] [place] [address] (Wo rk) Anesthesia Record Procedure Summary Procedure Name Responsible [...] filled with thick green / yellow secretions. logistics vice president aware, will monitor postop. 1620 an stop [...] ac knowledgement of understanding. 1625 An Stop Name Total ceFAZolin injection 2,000 mg dexaMETHasone 4 mg/mL injection 8 mg ePHEDrine pre-filled syringe 10 mg fentanyl citrate (PF) injection 100 mcg glycopyrrolate pre-filled syringe 0.7 mg HYDROmorphone vial 2 mg/mL 1.4 mg lidocaine 2% (PF) injection glass vial 100 mg ketAMINE 5 mL prefilled syringe 20 mg midazolam 1 mg/mL 2 mL vial 2 mg neostigmine (BLOXIVERZ) injection 1 mg/mL 3 mL syringe 3 mg ondansetron (PF) (ZOFRAN) injection 4 mg phenylephrine pre-filled syringe 3,200 mcg propOFol (DIPRIVAN) injection 200 mg propofol (DIPRIVAN) 500 mg in 50 mL infusion 2,426,655 mcg rocuronium 10 mg/mL vial 100 mg remifentaniL (ULTIVA) 2,000 mcg 1,697.04 mcg vecuronium 10 mg vial 8 mg dexmedetomidine injection - vial 5 mcg phenylephrine pre-made bag 20 mg/250 mL 340 mcg acetaminophen 10 mg/ml 100 mL infusion 1,000 mg lactated ringers (LR) infusion 1,900 mL Agents Name O2 N2O Air Blood No blood administrations on file. Lines, Drains, and Airways Type Details Placement Removal Wound 03/03/20; 1300; Incision; 03/03/20 1300 by Abdomen; 5 Laproscopic Chelsey Daniel RN Port Sites; N; Full thickness [...] Bard 03/03/20 1112 by 1116 by Power [place]; Right; Jadyn Morales RN Joseph, Ro byn, RN Antecubital; Inserted by RN; 2 (Johnson Novak RN); 3.15% Chlorhexidine with IPA; 03/03/20; 1116 Peripheral IV 03/03/20; 1159 (created 03/03/20 1159 by Jack, 1002 by via procedure MD Andi Anthony Jamie , certified court/medical interpreter); 18; Right; Hand; wrist; In OR by MD; (first attempt in right hand); (under general anesthesia); 03/04/20; 1002; Discharged; No complications, Catheter intact, Dressing applied Urethral Catheter 03/03/20; 1200; Inserted 03/03/20 1200 by 02/15 01/03 1606 by by RN; Selected surgical Erin Hendricks, Chelsey Orozco, procedures/Epidural; RN Non-latex, Double-lumen; 16 fr; 10 ml; Yes; 03/03/20; 1606 Non-Surgical Airway 03/03/20; 1244 (created 03/03/20 1244 by Jack , 03/03/20 1611 by via procedure MD Marlen Anthony Don W, documentation); 03/03/20; 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 documented as of this encounter OR Notes Anesthesia Postprocedure Evaluation - Tim Gee, SORAIDA - 03/03/2020 1626 EDT Patient: Sugey Cisneros Vital signs were reviewed with the recovery nurse. Complete vitals history is available in the Epic flowsheets. Vitals Value Taken Time BP 116/71 03/03/20 1624 03/03/20 1626 03/03/20 1626 Pulse From Oximetry 73 BPM 03/03/20 1625 SpO2 100 % 03/03/20 1625 Vitals shown include unvalidated device data. Last Pain Score - Numeric Pain Level (Scale 1-10): 2 Type of Anesthesia - general Anesthesia Post Evaluation Post-procedure vitals reviewed and are stable. Level of consciousness: awake and responsive/arousable to verbal stimuli Temperature status: normothermia and patient returned to pre-procedure baseline Respiratory status: airway patent, stable and face mask Cardiovascular status: stable Hydration status: adequate Nausea/Vomiting: none Pain management: adequate Post-Op Assessment: patient tolerated procedure well with no complications Patient participation: able to participate Disposition: inpatient Anesthesia Complications: No apparent anesthesia complications nesthesia Procedure Notes - Cornell Santiago MD - 03/03/2020 1251 EDTAssociated Order(s): Peripheral IV Placement Peripheral IV Placement Date/Time: 03/03/2020 11:59 Inserted by: Cornell Santiago MD Placement Needle size: 18 G Laterality: right Location: wrist Local anesthetic: none (under general anesthesia) Site prep: alcohol Technique: anatomical landmarks Attempts: 2 (first attempt in right hand) Anesthesia Procedure Notes - Cornell Santiago MD - 03/03/2020 1243 EDT Associated Order(s): Airway Airway Date/Time: 03/03/2020 11:49 Urgency: elective Airway not difficult General Information and Staff Patient location during procedure: OR Anesthesiologist: Cornell Santiago MD Performed: anesthesiologist Indications and Patient Condition Indications for airway management: anesthesia Sedation level: GA Preoxygenated: yes Patient position: sniffing Ventilation assessment: 1 - Easy Final Airway Details Final airway type: endotracheal airway Successful airway: ETT Cuffed: yes Successful intubation technique: direct laryngoscopy Facilitating devices/methods: intubating stylet Endotracheal tube insertion site: oral Blade: Darren Blade size: #3 ETT size (mm): 7.5 Cormack-Lehane Classification: grade IIa - partial view of glottis Placement verified by: chest auscultation, capnometry and palpation of cuff Measured from: lips ETT to lips (cm): 21 Number of attempts at approach: 1 Ventilation between attempts: none Number of other approaches attempted: 0 Anesthesia Preprocedure Evaluation - Cornell Santiago MD - 03/02/2020 2101 EDT Anesthesia Preprocedure Evaluation Patient Medical History, including Anesthesia History reviewed. Chart and Nursing Notes reviewed, including NPO status and Medication History. Additional ROS/History Findings: Sx: Lap Heller Myotomy 40F w/ hx obesity (BMI 34), achalasia, PCOS, back pain, snoring, anxiety, and problems with anesthesia as below?Pt reports bad reaction to gen anes in the past. Last surgery was Mar 2019. Higher doses of medication was needed, didn't last as long. Pt gets fever, chills, pain, bruising for1 wk post op. S/s start 2-4 days post op. Surgery was a carpal tunnel release under general per Pt at [facility]. Pt reports this happens to her sister as well. Pt reports with epidural: medication dosing needed genesis doubled, Pt reports still feeling everything and then needed to be put to sleep. October 2018 ++++++++++++++++++++++ Patient chart reviewed. 40 year old female with a history of achalasia, anxiety, back pain, polycystic ovarian syndrome, and obesity who presents for laparoscopic heller myotomy. Patient reports increased anesthetic requirements with prior procedures (carpal tunnel under GA and epidural requiring conversion to general). Unclear from the note what her bad reaction was; will require further investigation on the day of surgery. Anesthesia records from [facility] will be requested. No additional testing is necessary at this time. Standard perioperative COVID testing. Final anesthesia plan to be determined by the anesthesia team on the day of surgery. ++++++ Reviewed outside anesthesia chart. No mention of complications. Propofol infusion for case (rate between 100-200 mcg/kg/min), no pain medications/adjuncts (probably local infiltrated by the surgeon). Report is scanned under the media section. Princess Cortes MD?? Allergies Allergen Reactions ??? Sulfa (Sulfonamide Antibiotics) Shortness Of Breath ??? Penicillins Rash Review of Systems Past Medical History: Diagnosis Date ??? Achalasia ??? Activity, other involving cardiorespiratory exercise 02/25/20 1-2 flights of stairs without getting SOB, [...] ??? PCOS (polycystic ovarian syndrome) ??? Snores Relevant Problems No relevant active problems Physical Exam Airway Mallampati: II TM distance: >3 FB Neck ROM: full Cardiovascular - normal exam Dental Pulmonary - normal exam Abdominal Anesthesia Plan ASA 2 Anesthesia Type - general, to include intravenous induction and TIVA. Block for post-op pain? No Anesthesia plan and risks discussed. Informed consent obtained from patient. Specific risks discussed were other. PAT Note (Notes from 02/01/20 through 03/02/20) PAT Note by Princess Cortes MD at 02/29/2020 13:43 Version 1 of 1 Pt reports bad reaction to gen anes in the past. Last surgery was Mar 2019. Higher doses of medication was needed, didn't last as long. Pt gets fever, chills, pain, bruising for1 wk post op. S/s start 2-4 days post op. Surgery was a carpal tunnel release under general per Pt at [facility]. Pt reports this happens to [...] the day of surgery. Anesthesia records from [facility] will be requested. No additional testing [...] under the media section. Princess Cortes MD PAT Note by Princess Cortes MD at 02/25/2020 13:40 Version 6 of 6 Pt reports bad reaction to gen anes in the past. Last surgery was Mar 2019. Higher doses of medication was needed, didn't last as long. Pt gets fever, chills, pain, bruising for1 wk post op. S/s start 2-4 days post op. Surgery was a carpal tunnel release under general per Pt at [facility]. Pt reports this happens to [...] the day of surgery. Anesthesia records from [facility] will be requested. No additional testing is necessary at this time. Standard perioperative COVID testing. Final anesthesia plan to be determined by the anesthesia team on the day of surgery. Princess Cortes MD PAT Note by Josette Novak RN at 02/25/2020 13:40 Version 5 of 6 Pt reports bad reaction to gen anes in the past. Last surgery was Mar 2019. Higher doses of medication was needed, didn't last as long. Pt gets fever, chills, pain, bruising for1 wk post op. S/s start 2-4 days post op. Surgery was a carpal tunnel release under general per Pt at [facility]. Pt reports this happens to her sister as well. Pt reports with epidural: medication dosing needed to be doubled, Pt reports still feeling everything and then needed to be put to sleep. October 2018 PAT Note by Josette Novak RN at 02/25/2020 13:40 Version 4 of 6 Pt reports bad reaction to gen anes in the past. Last surgery was Mar 2019. Higher doses of medication was needed, didn't last as long. Pt gets fever, chills, pain, bruising for1 wk post op. S/s start 2-4 days post op. Surgery was a carpal tunnel release under general per Pt at [facility]. Pt reports with epidural: medication dosing needed to be doubled, Pt reports still feeling everything and then needed to be put to sleep. October 2018 PAT Note by Josette Novak RN at 02/25/2020 13:40 Version 3 of 6 Pt reports bad reaction to gen anes in the past. Last surgery was Mar 2019. Higher doses of medication was needed, didn't last as long. Pt gets fever, chills, pain, bruising for1 wk post op. S/s start 2-4 days post op. Surgery was a carpal tunnel release under general per Pt at [facility]. Pt reports with epidural: medication dosing needed to be doubled, Pt reports still feeling everything and then needed to be put to sleep. October 2018 PAT Note by Josette Novak RN at 02/25/2020 13:40 Version 2 of 6 Pt reports bad reaction to gen anes in the past. Last surgery was Mar 2019. Higher doses of medication was needed, didn't last as long. Pt gets fever, chills, pain, bruising for1 wk post op. Surgery was a carpal tunnel release under general per Pt at [facility]. Pt reports with epidural: medication dosing needed to be doubled, Pt reports still feeling everything and then needed to be put to sleep. October 2018 PAT Note by Josette Novak RN at 02/25/2020 13:40 Version 1 of 6 Pt reports bad reaction to gen anes in the past. Last surgery was Mar 2019. Higher doses of medication was needed, didn't last as long. Pt gets fever, chills, pain, bruising for1 wk post op. Surgery was a carpal tunnel release under general per Pt at [facility]. Pt reports with epidural: medication dosing needed to be doubled, Pt reports still feeling everything and then needed to be put to sleep. October 2018 documented in this encounter Plan of Treatment Not on filedocumented as of this encounter Procedures Procedure Name Priority Date/Time Associated Comments Diagnosis ANESTHESIA Routine 03/03/2020 12:51 Results for this PERIPHERAL IV EDT procedure are in PLACEMENT the results section. ANESTHESIA Routine 03/03/2020 12:43 Results for this INTUBATION EDT procedure are i n the results section. documented in this encounter Results Peripheral IV Placement (03/03/2020 12:51 EDT) Narrative [facility] POINT OF CARE - 03/03/2020 12:51 E Cornell Mansfield MD ? 03/03/2020 12:52 Peripheral IV Placement Date/Time: 03/03/2020 11:59 Inserted by: Cornell Santiago MD Placement Needle size: 18 G Laterality: right Location: wrist Local anesthetic: none (under general an esthesia) Site prep: alcohol Technique: anatomical landmarks Attempts: 2 (first attempt in right hand ) Performing Organization Address [facility] Phon e Number [facility] POINT OF CARE AR AN ELECTIVE ENDOTRACHEAL AIRWAY (03/03/2020 12:43 EDT) Narrative [facility] POINT OF CARE - 03/03/2020 12:43 E Cornell Mansfield MD ? 03/03/2020 12:44 Airway Date/Time: 03/03/2020 11:49 Urgency: elective Airway not difficult General Information and Staff Patient location during procedure: OR Anesthesiologist: Cornell Santiago M D Performed: anesthesiologist Indications and Patient Condition Indications for airway management: anest hesia Sedation level: GA Preoxygenated: yes Patient position: sniffing Ventilation assessment: 1 - Easy Final Airway Details Final airway type: endotracheal airway Successful airway: ETT Cuffed: yes Successful intubation technique: direct laryngoscopy Facilitating devices/methods: intubating stylet Endotracheal tube insertion site: oral Blade: Darren Blade size: #3 ETT size (mm): 7.5 Cormack-Lehane Classification: grade IIa - partial view of glottis Placement verified by: chest auscultatio n, capnometry and palpation of cuff Measured from: lips ETT to lips (cm): 21 Number of attempts at approach: 1 Ventilation between attempts: none Number of other approaches attempted: 0 Performing Organization Address [facility] Phon e Number [facility] POINT OF CARE documented in this encounter Visit Diagnoses Not on filedocumented in this encounter Administered Medications Inactive Administered Medications - up to 3 most recent administrations Medication Order MAR Action Action Date Dose Rate Site acetaminophen (OFIRMEV) IV Given 03/03/2020 15:43 EDT 1,000 mg solution PRN, Starting on Linda 03/03/20 at 1543, Until Linda 03/03/20 at 1625, Routine, Anesthesia Intraprocedure ceFAZolin (ANCEF) injection Given 03/03/2020 12:10 EDT 2,000 mg PRN, Starting on Linda 03/03/20 at 1210, Until Linda 03/03/20 at 1625, Routine, Anesthesia Intraprocedure dexaMETHasone (DECADRON) injection Given 03/03/2020 12:42 EDT 8 mg PRN, Starting on Linda 03/03/20 at 1242, Until Linda 03/03/20 at 1625, Routine, Anesthesia Intraprocedure dexmedeTOMIDine (PRECEDEX) injection Given 03/03/2020 15:08 EDT 5 mcg PRN, Starting on Linda 03/03/20 at 1508, Until Linda 03/03/20 at 1625, Routine, Anesthesia Intraprocedure ePHEDrine injection 25 mg/5 mL syringe Given 03/03/2020 13:13 EDT 5 mg PRN, Starting on Linda 03/03/20 at 1237, Until Linda 03/03/20 at 1625, Routine, Anesthesia Intraprocedure Given 03/03/2020 12:37 EDT 5 mg fentaNYL citrate (PF) injection Given 03/03/2020 13:34 EDT 50 mcg PRN, Starting on Linda 03/03/20 at 1145, Until Linda 03/03/20 at 1625, Routine, Anesthesia Intraprocedure Given 03/03/2020 11:45 EDT 50 mcg glycopyrrolate (PF) (ROBINUL) 0.4 mg/2 mL (0.2 Given 0 03/03/2020 16:05 EDT 0.5 mg mg/mL) injection PRN, Starting on Linda 03/03/20 at 1227, Until Linda 03/03/20 at 1625, Routine, Anesthesia Intraprocedure Given 03/03/2020 12:27 EDT 0.2 mg HYDROmorphone (DILAUDUD) 2 mg/mL injecti on Given 03/03/2020 16:06 EDT 0.4 mg PRN, Starting on Linda 03/03/20 at 1400, Until Linda 03/03/20 at 1625, Routine, Anesthesia Intraprocedure Given 03/03/2020 16:00 EDT 0.2 mg Given 03/03/2020 15:57 EDT 0.4 mg ketAMINE in NaCl, iso-osmotic (KETALAR) 50 mg/5 Given 03/03/2020 11:46 EDT 20 mg mL (10 mg/mL) IV injection PRN, Starting on Linda 03/03/20 at 1146, Until Linda 03/03/20 at 1625, Routine, Anesthesia Intraprocedure lactated ringers (LR) infusion New Bag 03/03/2020 13:31 EDT at 25 mL/hr, intravenous, CONTINUOUS, Starting on Linda 03/03/20 at 1115, Until Linda 03/03/20 at 1948, Routine, Preprocedure Continued by Anesthesia 03/03/2020 11:34 EDT New Bag 03/03/2020 10:40 EDT 25 mL/hr lidocaine (PF) 20 mg/mL (2 %) injection Given 03/03/2020 11:47 EDT 100 mg PRN, Starting on Linda 03/03/20 at 1147, Until Linda 03/03/20 at 1625, Routine, Anesthesia Intraprocedure midazolam (PF) (VERSED) injection Given 03/03/2020 11:43 EDT 2 mg PRN, Starting on Linda 03/03/20 at 1143, Until Linda 03/03/20 at 1625, Routine, Anesthesia Intraprocedure neostigmine methylsulfate (BLOXIVERZ) in jection Given 03/03/2020 16:05 EDT 3 mg PRN, Starting on Linda 03/03/20 at 1605, Until Linda 03/03/20 at 1625, Routine, Anesthesia Intraprocedure ondansetron (PF) (ZOFRAN) injection Given 03/03/2020 16:00 EDT 4 mg PRN, Starting on Linda 03/03/20 at 1600, Until Linda 03/03/20 at 1625, Routine, Anesthesia Intraprocedure phenylephrine HCl in 0.9% NaCl New Bag 03/03/2020 15:35 EDT 20 mcg /min 15 mL/hr (NEO_SYNEPHRINE) 20 mg/250 mL (80 mcg/mL) infusion solution FA IP EQF CONTINUOUS PRN FOR ONE STEP MEDS, Starting on Linda 03/03/20 at 1535, Until Linda 03/03/20 at 1625, Routine, Anesthesia Intraprocedure phenylephrine HCl in 0.9% NaCl injection Given 03/03/2020 15:16 EDT 200 mcg PRN, Starting on Linda 03/03/20 at 1216, Until Linda 03/03/20 at 1625, Routine, Anesthesia Intraprocedure Given 03/03/2020 15:08 EDT 200 mcg Given 03/03/2020 15:03 EDT 100 mcg propofol (DIPRIVAN) 500 Rate Change 03/03/2020 16:03 EDT 80 mcg/kg /min 45.8 mL/hr mg in 50 mL infusion FA IP EQF CONTINUOUS PRN FOR ONE STEP MEDS, Starting on Linda 03/03/20 at 1147, Until Linda 03/03/20 at 1625, Routine, Anesthesia Intraprocedure Rate Change 03/03/2020 15:57 EDT 100 mcg/kg/min 57.3 mL/hr Rate Change 03/03/2020 15:55 EDT 80 mcg/kg/min 45.8 mL/hr propOFol (DIPRIVAN) injection Given 03/03/2020 11:47 EDT 200 mg PRN, Starting on Linda 03/03/20 at 1147, Until Linda 03/03/20 at 1625, Routine, Anesthesia Intraprocedure remifentaniL (ULTIVA) Rate Change 03/03/2020 15:36 EDT 0.05 mcg/kg /min 14.3 mL/hr 2,000 mcg FA IP EQF CONTINUOUS PRN FOR ONE STEP MEDS, Starting on Linda 03/03/20 at 1146, Until Linda 03/03/20 at 1625, Anesthesia Intraprocedure Rate Change 03/03/2020 13:14 EDT 0.08 mcg/kg/min 22.9 mL/hr Rate Change 03/03/2020 12:45 EDT 0.1 mcg/kg/min 28.7 mL/hr rocuronium (ZEMURON) injection Given 03/03/2020 12:39 EDT 30 mg PRN, Starting on Linda 03/03/20 at 1148, Until Linda 03/03/20 at 1625, Routine, Anesthesia Intraprocedure Given 03/03/2020 11:48 EDT 70 mg vecuronium (NORCURON) injection Given 03/03/2020 15:00 EDT 2 mg PRN, Starting on Linda 03/03/20 at 1317, Until Linda 03/03/20 at 1625, Routine, Anesthesia Intraprocedure Given 03/03/2020 14:38 EDT 2 mg Given 03/03/2020 14:04 EDT 2 mg documented in this encounter Care Teams Plasterer Foreman Relationship Specialty Start Date End Date Anthony Gomez MD PCP - General 03/10/19 [address] [place] [address] documented as of this encounter
--- OUTSIDE RECORDS SUMMARY | 2021-11-10 11:30 | XMS_ITS | Encounter Summary ---
:1980 Author Organization [facility] Address [address] [place] [address] Care Team Providers Name Role Phone Anthony Gomez MD Primary Care Provider Reason for Visit Auth/Cert Specialty Diagnoses / Procedures Referred By Contact Refer red To Contact Diagnoses Achalasia Procedures ME LAP, ESOPHAGOMYOTOMY W FUNDOPLASTY Laparoscopic heller myotomy Referral ID Status Reason Start Date Expiration Date Visits Requ ested Visits Authorized [id number] 1 1 Encounter Details Date Type Department Care Team Description 03/03/2020 Surgery [facility] OR Bhaskar Booth Laparoscopic heller [address] [place] [address] Leatha Osorio MD myotomy [85805 (CPT??)] [place], [place] [id number] [place], [place] [phone] [facility], Level 5 [place] [phone] (Wo rk) Surgery Details Date/Time Status Location OR Service Patient Case Class Case Tr auma Class Type Case? 03/03/20 1155 Posted [facility] OR MOR 14 General Extended H - Elective Stay Panel 1 Procedure LRB Anes Op Region Wound Class Commen ts Laparoscopic heller myotomy N/A General Abdomen Class I/ Clean 3 hours req Surgeon Surgeon Role Service Panel Bhaskar Booth MD Primary General 1 Jose Mcleod MD Resident - Assisting General 1 Gayle Bustos MD Resident - Assisting General 1 Social History Tobacco Use Types Packs/Day Years [...] Sign Reading Time Taken Comments Blood Pressure 147/80 03/03/2020 1008 EDT Pulse - - Temperature 36.6 ??C (97.9 ??F) 03/03/2020 1008 EDT Respiratory Rate 16 03/03/2020 1008 EDT Oxygen Saturation 99% 03/03/2020 1008 EDT Inhaled Oxygen Concentration - - Weight 95.5 kg (210 lb 8.6 oz) 03/03/2020 1008 EDT Height - - Body Mass Index 33.88 03/03/2020 2010 EDT documented in this encounter Functional Status [...] MD MP5 Gen Surg None Krystyna Alcantar, SPA DIRECTOR/FINANCE 03/04/2020 9:35 documented in this encounter Medications [...] Code Departure Means Destination Home or Self Assisted documented in this encounter Progress Notes Bekah Figueroa - 03/04/2020 1013 EDT Pt was discharged home to self care prior to home risk assessment. CM reviewed the patient's chart, face sheet and nursing documentation (and has discussed the patient's situation with the medical team). No CM dc needs were identified. Jie Figueroa RN CCM [id number] orrazzo, Bhaskar Osorio MD - 03/04/2020 0750 EDT [...] Booth MD Randy Camilo MD - 03/03/2020 2585 EDT SURGERY POST-OP CHECK Procedure: Laparoscopic heller [...] I/O: Current Shift 03/03 1500 - 03/03 8665 In: 900 [I.V.:900] Out: 375 [Urine:350] Medications: [...] 20:40 Emergency Medicine PGY-1 Blue Team Pager #[phone] Jeanine Goncalves RN - 03/03/2020 1035 EDT [...] Becerra RN - 02/29/2020 1228 EDT Called [facility] for 2019 anesthesia records, they will fax documented in this encounter H&P Notes Bhaskar Booth MD - 03/03/2020 1116 EDT The preoperative history and physical which was performed within 30 days of this Procedure by primary doctor ([facility]) on 02/24/20 has been reviewed [...] Donnell fundoplication. SURGEON: Bhaskar Booth MD, FACS FINANCIAL SERVICES EDUCATION CONSULTANT: Jose Mcleod MD ANESTHESIA: General endotracheal and [...] then closed with subcuticular stitch of 4-0 [place]k cryl. Dermabond was used to cover each incision. The sponge, needle and instrument counts were correct at the end of the case. The patient was awoken from anesthesia, extubated and taken to the recovery room in stable condition. Unless otherwise noted, there were no complications, no blood loss, no cultures obtained, no specimens removed, and no drains retained. Bhaskar Booth MD FACS / LF Confirmation: [id number] Dictation ID: [id number] cc: Bhaskar Booth MD FACS, [facility] - Surgery, [address] [place], [place] [id number] Rere Caal MD, [facility], [address] [place] [address] documented in this encounter Miscellaneous Notes Plan [...] RN 03/04/2020 3:33 rief Op Note - Gayle Bustos MD - 03/03/2020 1613 EDT Date: 03/03/2020 Location: [facility] OR Name: Sugey Cisneros, : 1980, Diagnosis Pre-op Diagnosis * Achalasia [K22.0] Post-op Diagnosis * Achalasia [K22.0] Procedures Laparoscopic heller myotomy 54301 - ME LAP, ESOPHAGOMYOTOMY W FUNDOPLASTY Surgeons * Bhaskar Booth MD - Primary * Jose Mcleod MD - Resident - Assisting * Gayle Bustos MD - Resident - Assisting Procedure Summary Anesthesia: General ASA: II Estimated Blood Loss: 25 mL Total IV Fluids: 1800 mL Urine: 380 mL Staff: Documentation Manager: Chelsey Daniel RN Relief Documentation Manager: Erin Hendricks RN Relief Scrub: Keli Rod; Kelsey Sibley RN Scrub Person: Wilber Castillo; Connor Hemphill RN Patient Manual Lathe Machinist: Jose Oliveira Indications: Sugey Cisneros is an [...] Note - Princess Cortes MD - 02/29/2020 0923 EDT Pt reports bad reaction to gen anes in the past. Last surgery was Mar 2019. Higher doses of medication was needed, didn't last as long. Pt gets fever, chills, pain, bruising for1 wk post op. S/s start 2-4 days post op. Surgery was a carpal tunnel release under general per Pt at [facility]. Pt reports this happens to her [...] the day of surgery. Anesthesia records from [facility] will be requested. No additional testing is [...] AND SCREEN (03/03/2020 10:40 EDT) ABO O [facility] BLOOD BANK Rh Factor Positive [facility] B[facility]OD [facility] Antibody Screen Negative [facility] BLOOD [facility] Specimen Expires: 03/06/2020 @ 23:59 [facility] R BLOOD BANK Specimen Blood - Venous blood (substance) Performing Organization Address [facility] Phon e Number [facility] BLOOD BANK [address] [place] [address] TEST, URINE (03/03/2020 10:13 EDT) Test, NegativeComment: Negative [facility] Urine False negative LABORATORY results may occur in SERVICES women who are beyond 5-8 weeks gestation. Diagnosis of should be based on a correlation of test results with typical clinical signs and symptoms. Specimen Urine - Urine, Clean Catch Performing Organization Address [facility] Phon e Number [facility] [address] [place] [address] SERVICES documented in this encounter Visit Diagnoses Diagnosis Achalasia Achalasia and cardiospasm documented in this encounter [...] Routine Given 03/03/2020 21:46 EDT 650 mg bupivacaine (PF) (MARCAINE) 0.5% injecti on Given 03/03/2020 13:03 EDT 20 mL As needed, Starting on Linda 03/03/20 at 1303, Until Linda 03/03/20 at 1303, Routine, Intraprocedure ibuprofen (ADVIL;MOTRIN) 100 mg/5 mL cathleen pension 1 dose, Starting on Linda 03/03/20 at 1853, Until 02/15 at 1213 ibuprofen (ADVIL;MOTRIN) suspension 400 mg Given 03/04/2020 6:05 EDT 400 mg 400 mg, oral, EVERY 6 HOURS, First dose on Linda 03/03/20 at 1900, Until Discontinued, Routine Given 03/04/2020 1:36 EDT 400 mg Given 03/03/2020 18:55 EDT 400 mg ondansetron (PF) (ZOFRAN) injection 4 mg Given [...] on Sat03/04/20 at 0800, Until Discontinued, Routine sodium chloride 0.9 % 1,000 mL with methylene Given 03/03/2020 1 3:15 EDT 3 mL blue (PROVAYBLUE) 5 mg/mL (0.5 %) 5 mL As needed, Starting on Sat03/03/20 at 1315, Until Linda 03/03/20 at 1316, Routine, Intraprocedure sodium chloride 0.9 % irrigation Given 03/03/2020 13:01 EDT 1,000 mL As needed, Starting on Sat03/03/20 at 1301, Until Linda 03/03/20 at 1303, Routine, Intraprocedure documented in this encounter Discontinued Medications Medication [...] Huizar RN) 0428 (Given - Provider: Tanya vargas, ITZ)1000 (Canceled Entry - Provider: Batch Job User [...] Horner RN) 0136 (Given - Provider: Tanya vargas, ITZ)0605 (Given - Provider: Tanya Gonzales, ITZ) 400 mg, oral, EVERY 6 HOURS, First dose on Sat03/03/20 at 1900, Until Discontinued, Routine sodium chloride 0.9 % (flush) flush 3 mL(Linked Group 1) 9107 (Given - Provider: Ezio Foss RN) 3 mL, intravenous, EVERY 8 HOURS, First dose on Sat03/04/20 at 0800, Until Discontinued, Routine Continuous Medication Order 03/02/2020 03/03/2020 03/04/2020 electrolyte-A (PLASMALYTE-A) solution (CANCELED) 1901 (New Bag - Provider: Carley Horner RN)2010 (Rate Documented - Provider: Delisa Huizar RN)2329 [...] Carley Horner RN)1738 (Given - Provider: Carley Horner, RN) 25-50 mcg, intravenous, EVERY 5 MIN [...] mg (CANCELED) 1040 (Given - Provider: Jeanine Montemayor RN) 2 mg, intradermal, PRN, 4 doses, Startin g Linda 03/03/20 at 1055, Until Linda 03/03/20 at 1627, peripheral intravenous catheter placement, Routine, Preprocedure ondansetron (PF) (ZOFRAN) injection 4 mg 2325 (Given - Provider: Tanya Gonzales RN) 0601 (Given - Provider: Tanya vargas RN)0951 (Given - Provider: Ezio Foss RN) 4 mg, intravenous, EVERY 4 HOURS PRN, St arting Linda 03/03/20 at 2320, Until 03/04/20 at 1213, Nausea, Routine oxyCODONE (ROXICODONE) solution 5-10 mg (CANCELED) 180 (Given - Provider: Carley Horner RN) 5-10 mg, oral, EVERY 30 MINUTES PRN, 2 d oses, Starting Linda 03/03/20 at 1546, Until Linda 03/03/20 at 1947, Pain, Routine, Recovery (only) oxyCODONE (ROXICODONE) solution 5-10 mg 2009 (Given - Provider: Delisa Huizar RN) 5-10 mg, oral, EVERY 4 HOURS PRN, Starti ng Linda 03/03/20 at 1948, Until 03/04/20 at 1213, Pain, Routine sodium chloride 0.9 [...] ered Date First Ordered Date Been Administered sodium chloride 0.9 % (flush) flush 3 mL 1 020 acetaminophen (TYLENOL) solution unit dose 1 03/03 cup 650 mg atropine 0.1 mg/mL syringe 0.5 mg 1 03/03/2020 ceFAZolin (ANCEF) syringe 2 g 1 03/03/2020 diphenhydrAMINE (BENADRYL) injection 12.5 1 2019 mg electrolyte-A (PLASMALYTE-A) solution 1 03/03/2020 enoxaparin (LOVENOX) injection 40 mg 1 03/03/2020 fentaNYL citrate (PF) injection 25-50 mcg 1 2019 HYDROmorphone (PF) (DILAUDID) 0.5 mg/0.5 1 020 mL syringe 0.3-0.5 mg ibuprofen (ADVIL;MOTRIN) 100 mg/5 mL 1 03/03/2020 suspension ibuprofen (ADVIL;MOTRIN) suspension 400 mg 1 03/03 lactated ringers (LR) infusion 2 03/03/2020 lidocaine (PF) 10 mg/mL (1 %) injection 2 1 2019 mg naloxone (NARCAN) injection 0.2 mg 1 03/03/2020 ondansetron (PF) (ZOFRAN) injection 4 mg 2 020 oxyCODONE (ROXICODONE) solution 5-10 mg 2 03/03/20 20 Diet Count Last Ordered Date First Ordered Date DISCHARGE DIET 1 03/04/2020 Nursing Count Last Ordered Date First Ordered Date ACTIVITY INSTRUCTIONS 1 03/04/2020 BATHING INSTRUCTIONS 1 03/04/2020 DRIVING INSTRUCTIONS 1 03/04/2020 WOUND CARE INSTRUCTIONS 1 03/04/2020 INSERT PERIPHERAL IV 1 03/03/2020 MEASURE HEIGHT 1 03/03/2020 MEASURE WEIGHT 1 03/03/2020 Admission Count Last Ordered Date First Ordered Date ADMIT TO INPATIENT 1 03/03/2020 Transfer Count Last Ordered Date First Ordered Date TEACHING SERVICE 1 03/03/2020 Discharge Count Last Ordered Date First Ordered Date DISCHARGE PATIENT 1 03/04/2020 documented in this encounter Care Teams Retail Sales Merchandiser Development Relationship Specialty Start Date End Date Anthony Gomez MD PCP - General 03/10/19 [address] [place] [address] documented as of this encounter
--- OUTSIDE RECORDS SUMMARY | 2021-11-10 11:31 | XMS_ITS | Encounter Summary ---
:1980 Author Organization [facility] Address [address] [place] [address] Care Team Providers Name Role Phone None, Provider Primary Care Provider Unavailable Encounter Details Date Type Department Care Team Description 08/20/2018 Hospital Encounter [facility] - Unknown, Fanny oconnor [facility] [phone] [place] [address] (Work) [place] [address] Social History Tobacco Use Types Packs/Day Years [...] Sig Dispensed Refills Start Date End Date METFORMIN HCL (METFORMIN Take 500 mg by 0 02/25/2020 ORAL) mouth 2 times daily. spironolactone (ALDACTONE) Take 50 mg by 0 02/25/2020 50 mg tablet mouth daily traMADol (ULTRAM) 50 mg Take 1 Tab by 10 Tab 0 5 02/25/2020 tablet mouth every 6 hours as needed for Pain Daily Max: 200 mg documented as of this encounter Discharge Disposition Disposition Code Departure Means Destination Home or Self Longterm documented in this encounter Plan of Treatment Not on filedocumented as of this encounter Visit Diagnoses Not on filedocumented in this encounter Care Teams Life Insurance Salesperson Relationship Specialty Start Date End Date None, Provider PCP - General 10/19/14 03/09/19 documented as of this encounter
--- OUTSIDE RECORDS SUMMARY | 2021-11-10 11:31 | XMS_ITS | Encounter Summary ---
:1980 Author Organization [facility] Address [address] [place] [address] Care Team Providers Name Role Phone Unavailable Primary Care Provider Unavailable Encounter Details Date Type Department Care Team Description 06/01/2011 Abstract [facility] Chelsey Overton [facility] Gustavo POWERS [address] [place] [address] [place] [address] [phone] Social History Tobacco Use Types Packs/Day Years Used Date Never Assessed Alcohol Habits Answer Date Recorded How often [...] 16:07 EDT documented as of this encounter Plan of Treatment Not on filedocumented as of this encounter Visit Diagnoses Not on filedocumented in this encounter
--- OUTSIDE RECORDS SUMMARY | 2021-11-10 11:31 | XMS_ITS | Encounter Summary ---
:1980 Author Organization [facility] Address [address] [place] [address] Care Team Providers Name Role Phone None, Provider Primary Care Provider Unavailable Anthony Gomez MD Primary Care Provider Encounter Details Date Type Department Care Team Description 10/28/2018 Historical Results Only [facility] - Ramona Bacon, [facility] Lab - [place] [address] Social History Tobacco Use Types Packs/Day Years [...] Name Priority Date/Time Associated Diagnosis Comme nts BACTERIAL CULTURE, Routine 10/28/2018 10:06 Resul ts for this URINE EDT procedure are i n the results section. documented in this encounter Results BACTERIAL CULTURE, URINE (10/28/2018 10:06 EDT) USUAL UROGENITAL ADELE - [facility] CitrateConcentration <10,000 CFU/ML [facility] Specimen Performing Organization Address City/State/ZIP Code Phon e Number [facility] [address] [place] [address] [facility] documented in this encounter Visit Diagnoses Not on filedocumented in this encounter Care Teams Felt Hat Flanging Operator Relationship Specialty Start Date End Date None, Provider PCP - General 10/19/14 03/09/19 Anthony Gomez MD PCP - General 03/10/19 [address] [place] [address] documented as of this encounter
--- OUTSIDE RECORDS SUMMARY | 2021-11-10 11:31 | XMS_ITS | Encounter Summary ---
:1980 Author Organization [facility] Address [address] [place] [address] Care Team Providers Name Role Phone None, Provider Primary Care Provider Unavailable Anthony Gomez MD Primary Care Provider Encounter Details Date Type Department Care Team Description 05/25/2016 Historical Results Only [facility] - Ramona Bacon, [facility] Lab - [place] [address] Social History Tobacco Use Types [...] Name Priority Date/Time Associated Diagnosis Comme nts BETA-HCG QUANT(WITH Routine 05/25/2016 14:26 Resu lts for this DILUT) - [facility] EST procedure are in the results section. documented in this encounter Results BETA-HCG QUANT(WITH DILUT) - [facility] (05/25/2016 14:26 EST) BETA-HCG 33 mIU/mL [facility] QUANTITATIVE Comment: [facility] ? --Result Comments/Interpretation of Results- - Apparently healthy non females, males, and pos t menopausal females: ?< 10 mIU/mL The expected hCG values at a corresponding gestational age are: 0.2-1 week: ?5-50 ? mIU/mL 1-2 weeks: ? 50-500 ? mIU/mL 2-3 weeks: ? 100-5,000 ?mIU/mL 3-4 weeks: ? 500-10,000 ? mIU/mL 4-5 weeks: ? 1,000-50,000 ?? mIU/mL 5-6 weeks: ? 10,000-100,000 mIU/mL 6-8 weeks: ? 15,000-200,000 mIU/mL 2-3 months: ?10,000-100,000 mIU/mL Specimen Narrative [facility] - 016 15:08 EST Does PT Have a Latex Allergy? NO Enter/Edit CPT and ICD codes? N Performing Organization Address City/State/ZIP Code Phon e Number [facility] [address] [place] [address] [facility] documented in this encounter Visit Diagnoses Not on filedocumented in this encounter Care Teams Galley Boy Relationship Specialty Start Date End Date None, Provider PCP - General 10/19/14 03/09/19 Anthony Gomez MD PCP - General 03/10/19 [address] [place], [place] [id number] documented as of this encounter
--- OUTSIDE RECORDS SUMMARY | 2021-11-10 11:31 | XMS_ITS | Encounter Summary ---
:1980 Author Organization [facility] Address [address] [place] [address] Care Team Providers Name Role Phone None, Provider Primary Care Provider Unavailable Anthony Gomez MD Primary Care Provider Encounter Details Date Type Department Care Team Description 04/25/2018 Historical Results [facility] - Nancy Graves, Only [facility] [place] PROCESSING ARCHIVIST [address] [place] [address] [address] [place] [phone] Social History Tobacco Use Types Packs/Day Years [...] Name Priority Date/Time Associated Diagnosis Comme nts PRELUDE CELL FREE Routine 04/25/2018 9:10 EST Res ults for this DNA - [facility] procedure are i n the results section. documented in this encounter Results PRELUDE CELL FREE DNA - [facility] (04/25/2018 9:10 EST) PRELUDE CELL FREE See note [facility] DNA - CV Comment: [facility] Kit or Tubes Drawn? ??Kit Transported by UPS,FedEx or Freight Brake Operator: ??FedEx Destination: ??Proxible [address] [facility] [address] Test Performed: Prelude DNA Container: Kit Tracking #: ??[id number] Specimen Narrative [facility] - 018 10:14 EST Does PT Have a Latex Allergy? NO Performing Organization Address City/State/ZIP Code Phon e Number [facility] [address] [place], [place] [id number] [place] [address] LAB documented in this encounter Visit Diagnoses Not on filedocumented in this encounter Care Teams Juvenile Court Judge Relationship Specialty Start Date End Date None, Provider PCP - General 10/19/14 03/09/19 Anthony Gomez MD PCP - General 03/10/19 [address] [place] [address] documented as of this encounter
--- OUTSIDE RECORDS SUMMARY | 2021-11-10 11:31 | XMS_ITS | Encounter Summary ---
:1980 Author Organization [facility] Address [address] [place] [address] Care Team Providers Name Role Phone None, Provider Primary Care Provider Unavailable Anthony Gomez MD Primary Care Provider Encounter Details Date Type Department Care Team Description 08/19/[address] [facility] - Ana Rosa Christian MD Only [facility] Lab - Main [facility] [address] [facility] [address] [facility] [address] [place] [address] [place] [phone] Social History Tobacco Use Types Packs/Day [...] Name Priority Date/Time Associated Diagnosis Comme nts PAP TEST Routine 08/19/2013 12:18 EST Results for this procedure are i n the results section . documented in this encounter Results PAP TEST (08/19/2013 12:18 EST) Specimen Narrative [facility] - 014 12:12 EDT Name: SUGEY ESPINAL ?: [birth year] ?Age/Sex: 39/F ?Unit#: [id number] ? Loc: AGO ? Status: REG POV ?? Reg Date: 08/19/13 ? Pt.Phone Number : ? Specimen: [id number] ?IRENE POSADA: JOSAIS ?Spec Date:08/19/13 ? Physician Copies: ?Jie Christian MD ? Tissues: ? Cervical/Endo Pap ?Darrian Buckley DO CPT: 69636 ?? Units: ??1 ? CYTOLOGY DIAGNOSIS SPECIMEN ADEQUACY: ?Satisfactory for evaluation. Transformation zone component present. GENERAL CATEGORIZATION: ?Negative fo r Intraepithelial Lesion or Malignancy DESCRIPTIVE DIAGNOSIS: ? Negative fo r Intraepithelial Lesion or Malignancy. ?HPV DNA RESULTS ?? 08/19/13 1229 HPV DNA RESULT ??NEG ? Negative for HP V types 16, 18, 31, 33, 35, 39, 45, 51, 52, ? 56, 58, 59, 66, 68. ? Method: Cervist a HPV HR (High Risk) DNA test. ORDER QUERIES: LMP: 08/09/13- ?Preg nant? N Post ? N ??PREVIOUS ATYPICAL: N BCP/HRT? Y Rad Rx? N IUD? N ??PAP PLUS HPV? Y ??REFLEX TO HR-HPV IF ASCUS Y REFLEX TO HPV 16/18 IF HPV POS/PAP NEG Y HPV REGARDLESS? Y ??RFLX HPV IF LSIL ?? Signed McCar thy,N CT(ASCP) 08/26/13 By the signature above, the attending ph ysician certifies that he/she has personally conducted a gross and/or microscopic exa mination of the described specimens and rendered or confirmed the above diagnosi s. Test Performed by [facility], [address] [place] [address] Hot Packer: Alsiha Rowell MD PHD Performing Organization Address City/State/ZIP Code Phon e Number [facility] [address] [place] [address] LAB documented in this encounter Visit Diagnoses Not on filedocumented in this encounter Care Teams Apprise Counselor Relationship Specialty Start Date End Date None, Provider PCP - General 10/19/14 03/09/19 Anthony Gomez MD PCP - General 03/10/19 [address] [place] [address] documented as of this encounter
--- OUTSIDE RECORDS SUMMARY | 2021-11-10 11:31 | XMS_ITS | Encounter Summary ---
:1980 Author Organization [facility] Address [address] [place] [address] Care Team Providers Name Role Phone None, Provider Primary Care Provider Unavailable Anthony Gomez MD Primary Care Provider Encounter Details Date Type Department Care Team Description 06/01/2016 Historical Results Only [facility] - Ramona Bacon, [facility] Lab - [place] [address] Social History Tobacco Use Types [...] Associated Diagnosis Comme nts BETA-HCG QUANT(WITH Routine 06/01/2016 14:28 Resu lts for this DILUT) - [facility] EST procedure are in the results section. documented in this encounter Results BETA-HCG QUANT(WITH DILUT) - [facility] (06/01/2016 14:28 EST) BETA-HCG 20 mIU/mL [facility] Comment: [facility] ? --Result [...] mIU/mL 2-3 months: ?10,000-100,000 mIU/mL Specimen Narrative [facility] - 016 15:01 EST Does PT Have a Latex Allergy? NO Enter/Edit CPT and ICD codes? N Performing Organization Address City/State/ZIP Code Phon e Number [facility] [address] [place] [address] [facility] documented in this encounter Visit Diagnoses Not on filedocumented in this encounter Care Teams Inspector Circuitry Negative Relationship Specialty Start Date End Date None, Provider PCP - General 10/19/14 03/09/19 Anthony Gomez MD PCP - General 03/10/19 [address] [place], [place] [phone] documented as of this encounter
--- OUTSIDE RECORDS SUMMARY | 2021-11-10 11:31 | XMS_ITS | Encounter Summary ---
:1980 Author Organization [facility] Address [address] [place] [address] Care Team Providers Name Role Phone None, Provider Primary Care Provider Unavailable Encounter Details Date Type Department Care Team Description 03/20/2018 Hospital Encounter [facility] - Unknown, Fanny oconnor [facility] [phone] [place] [address] (Work) [place] [address] Social History Tobacco Use Types Packs/Day Years [...] Code Departure Means Destination Home or Self Alf documented in this encounter Plan of Treatment Not on filedocumented as of this encounter Visit Diagnoses Not on filedocumented in this encounter Care Teams Supervisor Partial Denture Department Relationship Specialty Start Date End Date None, Provider PCP - General 10/19/14 03/09/19 documented as of this encounter
--- OUTSIDE RECORDS SUMMARY | 2021-11-10 11:31 | XMS_ITS | Encounter Summary ---
:1980 Author Organization [facility] Address [address] [place] [address] Care Team Providers Name Role Phone None, Provider Primary Care Provider Unavailable Anthony Gomez MD Primary Care Provider Encounter Details Date Type Department Care Team Description 10/24/[address] [facility] - EhretRamona, [facility] [place] Lab - Main [facility] [place] [address] Social History Tobacco Use Types [...] Procedure Name Priority Date/Time Associated Comments Diagnosis URINE MICROSCOPIC Routine 10/24/2018 3:55 Results for this EDT procedure are i n the results section. URINE CULTURE IF Routine 10/24/2018 3:55 Results for this POSITIVE EDT procedure are i n the results section. documented in this encounter Results URINE CULTURE IF POSITIVE (10/24/2018 3:55 EDT) ENTEROCOCCUS FAECALIS - ENTEROCOCCUS [facility] FAECALIS [facility] CitrateConcentration 10,000-100,000 CFU/ML [facility] USUAL UROGENITAL ADELE - [facility] CitrateConcentration <10,000 CFU/ML [facility] Specimen Narrative [facility] - 019 7:39 EDT Does PT Have a Latex Allergy? NO Organism Antibiotic Method Susceptibility Enterococcus faecalis Nitrofurantoin GRAM POSITIVE SUSCEPTIBILI TY - <=16: Susceptible [facility] [place] Enterococcus faecalis Penicillin GRAM POSITIVE SUSCEPTIBILI TY - 2: Susceptible CV Enterococcus faecalis Tetracycline GRAM POSITIVE SUSCEPTIBILI TY - >=16: Resistant [facility] [place] Comment: See Reason(s) for Study Performing Organization Address [facility] Phon e Number [facility] [address] LAB URINE MICROSCOPIC (10/24/2018 3:55 EDT) URINE APPEARANCE - Cloudy [facility]AR [facility] URINE BACTERIA - FEW [facility] URINE COLOR - [facility] [place] Polina YELLOW [facility] Comment: [facility] Abnormal urine color may interfere with interpretation of the urinalysis reagent test strips. Urinalysis order has been reflexed to Urine Microscopi c due to color interference. URINE MUCUS - [facility] [place] FEW [facility] URINE RBC - [facility] TNTC rbc/hpf [facility] URCULTIF+? - [facility] Culture Ordered [facility] URINE SQUAMOUS FEW NEG #/hpf [facility] CELLS - [facility] URINE WBC - [facility] [place] [facility] TNTC NEG wbc/hpf [facility] URINE WBC [facility] Specimen Narrative [facility] - 019 8:01 EDT Does PT Have a Latex Allergy? NO Performing Organization Address City/[facility] Code Phon e Number [facility] [address] LAB documented in this encounter Visit Diagnoses Not on filedocumented in this encounter Care Teams Continuity Clerk Relationship Specialty Start Date End Date None, Provider PCP - General 10/19/14 03/09/19 Anthony Gomez MD PCP - General 03/10/19 [address] [place] [address] documented as of this encounter
--- OUTSIDE RECORDS SUMMARY | 2021-11-10 11:31 | XMS_ITS | Encounter Summary ---
:1980 Author Organization [facility] Address [address] [place] [address] Care Team Providers Name Role Phone Anthony Gomez MD Primary Care Provider Reason for Visit Reason Comments New Patient Visit achalasia Consult (Routine) - Authorization Not Required Specialty Diagnoses / Procedures Referred By Contact Refer red To Contact General Surgery Diagnoses Achalasia Difficulty swallowing Yesy Casillas Borrazzo, Edward MD Christopher, MD [address] [place] [address] [place], [facility] [address] [place] [address] Phone: Fax: Referral ID Status Reason Start Expiration Visits Visits Date Date Requested Authorized [id number] Authorization Not 1 1 Required Encounter Details Date Type Department Care Team Description 05/28/2019 Office Visit [facility] Bhaskar Booth (Primary General Surgery - Kali Osorio) Main [id number] [place] [address] Pavilion, Level [address] [place] [address] (Wo rk) Social History Tobacco [...] Taken Comments Blood Pressure - - Pulse 76 05/28/2019 1521 EST Temperature - - Respiratory Rate 16 05/28/2019 1521 EST Oxygen Saturation - - Inhaled Oxygen Concentration - - Weight 87.5 kg (193 lb) 05/28/2019 1521 EST Height 167.6 cm (5' 6) 05/28/2019 1521 EST Body Mass Index 31.15 05/28/2019 1521 EST documented in this encounter Functional Status Functional [...] encounter Progress Notes Bhaskar Booth MD - 05/28/2019 1500 EST Division of General Surgery Date of Service: 05/28/2019 PROBLEM: 1. Achalasia HISTORY OF PRESENT ILLNESS: I am seeing Sugey Manuel Cisneros in the office today in consultation by Yesy Casillas MD for 1. Achalasia This is a 39 y.o. female Who has a history of significant dysphagia. It has been present for the last year. Over the last 7 months, the patient has had a 60- pound weight loss. Her dysphagia has progressed from solids to liquids. She wakes up choking and regurgitating undigested food. She sleeps upright in an adjustable bed. She complains of throat pain. She had an esophagram showing a dilated esophagus with distal narrowing. Endoscopy also was suggestive of achalasia. She had a dilatation. It did not really help her symptoms significantly. She had esophageal manometry, which was consistent with michel lasia. She is here today to talk about Heller myotomy. Social History Tobacco Use ??? Smoking status: Never Smoker ??? Smokeless tobacco: Never Used Substance Use Topics ??? Alcohol use: Not on file No past medical history on file. Past Surgical History: Procedure Laterality Date ??? SECTION 08/20 Current Outpatient Medications: levonorgestrel (MIRENA) 20 mcg/24 hours (5 yrs) 52 mg IUD METFORMIN HCL (METFORMIN ORAL) pantoprazole (PROTONIX) 40 mg tablet spironolactone (ALDACTONE) 50 mg tablet traMADol (ULTRAM) 50 mg tablet No current facility-administered medications for this visit. Allergies Allergen Reactions ??? Sulfa (Sulfonamide Antibiotics) Shortness Of Breath ??? Penicillins Rash REVIEW OF SYSTEMS: A ten point review of systems was performed and all were negative except as listed below. Patient Active Problem List Diagnosis ??? Second degree whitehead ??? Achalasia OBJECTIVE: Vitals: 05/28/19 1521 Pulse: 76 Resp: 16 Weight: 87.5 kg (193 lb) Height: 167.6 cm (66) Body mass index is 31.15 kg/m??. She is afebrile. General: No acute distress. HEENT: Normal. Neck: Supple. Skin: Normal. Lungs: Clear, bilaterally. Heart: Regular rate and rhythm. Abdomen: Soft, nondistended, nontender, no masses, no organomegaly. Vascular: Normal. Musculoskeletal: Normal. Neurologic: Normal. ASSESSMENT & PLAN: A 39 y.o. female With achalasia. She is relatively young. She is losing weight. She has significant dysphagia. I recommended laparoscopic Heller myotomy. PLAN: Laparoscopic Heller myotomy was described to the patient. We will also perform a partial fundoplication usually posterior (Toupet). The procedure was described. Risks include infection, bleeding,injuring the liver, spleen, heart, lungs, or large blood vessels, conversion to an open procedure, and specifically to this case, full-thickness injury to the esophagus. She can also have significant reflux after the procedure, although we will try to minimize that with an antireflux portion of the operation. She understood all these things and was willing to proceed. Surgery will be scheduled at thefirst mutually convenient time. --Bhaskar Booth MD . documented in this encounter Plan of Treatment Not on filedocumented as of this encounter Visit Diagnoses Diagnosis Achalasia - Primary Achalasia and cardiospasm documented in this encounter Historical Medications This list may reflect changes made after this encounter. Medication Sig Dispensed Refills Start Date End Date levonorgestrel (MIRENA) 1 Each by 0 1 20 mcg/24 hours (5 yrs) intrauterine route 52 mg IUD once. pantoprazole (PROTONIX) Take 40 mg by mouth 2 0 02/25/2020 40 mg tablet times daily. added in this encounter Care Teams Pattern Chart Writer Relationship Specialty Start Date End Date Anthony Gomez MD PCP - General 03/10/19 [address] [place] [address] documented as of this encounter
--- OUTSIDE RECORDS SUMMARY | 2021-11-10 11:31 | XMS_ITS | Encounter Summary ---
:1980 Author Organization [facility] Address [address] [place] [address] Care Team Providers Name Role Phone None, Provider Primary Care Provider Unavailable Anthony Gomez MD Primary Care Provider Encounter Details Date Type Department Care Team Description 05/18/2016 Historical Results [facility] - Ana Rosa Christian MD Only [facility] [place] - [place] [address] [facility] [address] [facility] [address], [address] [place] [address] [place] [phone] [address] Social History Tobacco Use Types Packs/Day [...] Associated Diagnosis Comme nts BETA-HCG QUANT(WITH Routine 05/18/2016 7:55 EST R esults for this DILUT) - [facility] [place] procedure are in the results section. documented in this encounter Results BETA-HCG QUANT(WITH DILUT) - [facility] (05/18/2016 7:55 EST) BETA-HCG 71 mIU/mL [facility] Comment: [facility] Result called to ERASTO LOCO 05/18/16 0844: Result called by MMP ? --Result Comments/Interpretation of Results- - Apparently [...] mIU/mL 2-3 months: ?10,000-100,000 mIU/mL Specimen Narrative [facility] - 016 8:44 EST Does PT Have a Latex Allergy? NO Enter/Edit CPT and ICD codes? N Performing Organization Address City/State/ZIP Code Phon e Number [facility] [address] [place] [address] [facility] documented in this encounter Visit Diagnoses Not on filedocumented in this encounter Care Teams Project Surveyor Relationship Specialty Start Date End Date None, Provider PCP - General 10/19/14 03/09/19 Anthony Gomez MD PCP - General 03/10/19 [address] [place] [address] documented as of this encounter
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
--- OUTSIDE RECORDS SUMMARY | 2021-11-10 11:31 | XMS_ITS | Encounter Summary ---
:1980 Author Organization [facility] Address [address] [place] [address] Care Team Providers Name Role Phone None, Provider Primary Care Provider Unavailable Anthony Gomez MD Primary Care Provider Encounter Details Date Type Department Care Team Description 04/27/[address] [facility] - Delisa Anne, Only [facility] Radiology Resul ts [address] [facility] [address] [place], [place] [phone] [place] [address], [address] [place] [id number] Social History Tobacco Use Types Packs/Day Years [...] Procedure Name Priority Date/Time Associated Comments Diagnosis BETA-HCG QUANT(WITH Routine 04/27/2016 14:42 Resu lts for this DILUT) - [facility] EST procedure are in the results section. COMPLETE BLOOD COUNT Routine 04/27/2016 14:42 Res ults for this WITH DIFFERENTIAL EST procedure are in (AUTO) the results section. ALT Routine 04/27/2016 14:42 Results for this EST procedure are i n the results section. AST Routine 04/27/2016 14:42 Results for this EST procedure are i n the results section. CREATININE Routine 04/27/2016 14:42 Results for this EST procedure are i n the results section. documented in this encounter Results ALT (04/27/2016 14:42 EST) Pathologist Sig nature SGPT/ALT - [facility] 36 12 - 78 U[facility]L [facility] Specimen Narrative [facility] - 16:35 EST Does PT Have a Latex Allergy? NO Enter/Edit CPT and ICD codes? N Performing Organization Address [facility] Phon e Number [facility] [address] [place] [address] LAB AST (04/27/2016 14:42 EST) Pathologist Sig nature SGOT/AST - [facility] 19 10 - 37 U/L [facility] R LAB Specimen Narrative [facility] - 016 16:35 EST Does PT Have a Latex Allergy? NO Enter/Edit CPT and ICD codes? N Performing Organization Address [facility] Phon e Number [facility] [address] [place] [address] LAB CREATININE (04/27/2016 14:42 EST) CREATININE 0.83 0.5 - 1.3 mg/dL [facility] eGFR >60 [facility] Comment: CENTER LAB Chronic renal impairment is defined as GFR <60 Multiply result by 1.210 for patients . eGFR calculated using the IDMS-traceable MDRD Study Equation. ??(effective 04/19/2014) Specimen Narrative [facility] - 016 16:35 EST Does PT Have a Latex Allergy? NO Enter/Edit CPT and ICD codes? N Performing Organization Address [facility] Phon e Number [facility] [address] [place] [address], [address] LAB BETA-HCG QUANT(WITH DILUT) - [facility] (04/27/2016 14:42 EST) BETA-HCG 1,730 mIU/mL [facility] Comment: [facility] ? --Result Comments/Interpretation of Results- [...] mIU/mL 2-3 months: ?10,000-100,000 mIU/mL Specimen Narrative [facility] - 016 16:35 EST Does PT Have a Latex Allergy? NO Enter/Edit CPT and ICD codes? N Performing Organization Address City/State/ZIP Code Phon e Number [facility] [address] [place], [place] [id number] [place] [address] LAB COMPLETE BLOOD COUNT WITH DIFFERENTIAL (AUTO) (04/27/2016 14:42 EST) Pathologist Sig nature ABSOLUTE NEUTROPHIL 6.08 1.7 - 7.0 [facility] COUN - [facility] 10e3/ul CENTER LAB BASO # - [facility] 0.03 0.0 - 0.3 [facility] 10e3/uL CENTER LAB BASO % - [facility] 0 0 - 2 % [facility] EOS # - [facility] 0.29 0.05 - 0.5 [facility] 10e3/uL CENTER LAB EOS % - [facility] 3 0 - 5 % [facility] GRAN % - [facility] 65 40 - 80 % [facility] HEMATOCRIT - [facility] 41.6 34.0 - 47.0 % [facility] HEMOGLOBIN - [facility] 14.0 11.2 - 15.7 g/dl [facility] IG# - [facility] 0.03 0 - 0.07 10e3/uL [facility] IG% - [facility] 0.3 0 - 0.9 % [facility] LYMPH # - [facility] 2.52 0.9 - 2.9 [facility] 10e3/uL [facility] LYMPH% - [facility] 27 20 - 40 % [facility] MEAN CORPUSCULAR HGB - 29.8 26 - 34 pg [facility] MEAN CORPUSCULAR HGB 33.7 31 - 36 g/dL [facility] CONC [facility] CENTER LAB MEAN CELL VOLUME - 88.5 77 - 100 fl [facility] CENTER LAB MONO # - [facility] 0.44 0.3 - 0.9 [facility] 10e3/uL [place] MONO% - [facility] 5 0 - 12 % [facility] LAB PLATELET COUNT 304 150 - 400 [facility] 10e3/ul [place] RED BLOOD COUNT - [facility] 4.70 3.8 - 5.2 [facility] D 10e6/ul [facility] RED CELL DISTRI WIDTH 13.1 11.8 - 15.6 % [facility] D - [facility] CENTER LAB WHITE BLOOD COUNT - 9.4 3.5 - 10.5 [facility] 10e3/ul [facility] Specimen Narrative [facility] - 016 16:09 EST Does PT Have a Latex Allergy? NO Performing Organization Address City/State/ZIP Code Phon e Number [facility] [address] [place] [address] [facility] documented in this encounter Visit Diagnoses Not on filedocumented in this encounter Care Teams Caustic Loader Relationship Specialty Start Date End Date None, Provider PCP - General 10/19/14 03/09/19 Anthony Gomez MD PCP - General 03/10/19 [address] [place] [address] documented as of this encounter
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
--- OUTSIDE RECORDS SUMMARY | 2021-11-10 11:31 | XMS_ITS | Encounter Summary ---
:1980 Author Organization [facility] Address [address] [place] [address] Care Team Providers Name Role Phone None, Provider Primary Care Provider Unavailable Anthony Gomez MD Primary Care Provider Encounter Details Date Type Department Care Team Description 05/11/2016 Historical Results [facility] - Delisa Hamlin, Only [facility] Lab - [place] [address] [place] [address] [address], [address] [place] [address] Social History Tobacco Use Types [...] Associated Diagnosis Comme nts BETA-HCG QUANT(WITH Routine 05/11/2016 14:31 Resu lts for this DILUT) - [facility] EST procedure are in the results section. documented in this encounter Results BETA-HCG QUANT(WITH DILUT) - [facility] (05/11/2016 14:31 EST) BETA-HCG 196 mIU/mL [facility] Comment: [facility] Result called to IRMA LOVING FOR DR. HAMLIN AT [facility] 05/11/16 5568: Result called by CINTHYA 05/11/16 1518: ??Amended Report ??BETA-HCG ??QUANT previously reported as: 196 mIU/mL ??Reason: ADDED COMMENT ? --Result Comments/Interpretation of Results- - Apparently [...] mIU/mL 2-3 months: ?10,000-100,000 mIU/mL Specimen Narrative [facility] - 016 15:18 EST COMMENTS: STAT CALL RESULTS Does PT Have a Latex Allergy? NO Enter/Edit CPT and ICD codes? N Performing Organization Address City/State/ZIP Code Phon e Number [facility] [address] [place], [place] [id number] [place] [address] LAB documented in this encounter Visit Diagnoses Not on filedocumented in this encounter Care Teams Management Intern Relationship Specialty Start Date End Date None, Provider PCP - General 10/19/14 03/09/19 Anthony Gomez MD PCP - General 03/10/19 [address] [place] [address] documented as of this encounter
--- OUTSIDE RECORDS SUMMARY | 2021-11-10 11:31 | XMS_ITS | Encounter Summary ---
:[address] [facility] Address [address] [place] [address] Care Team Providers Name Role Phone None, Provider Primary Care Provider Unavailable Encounter Details Date Type Department Care Team Description 06/11/2018 Hospital Encounter [facility] - Unknown, Fanny oconnor [facility] [phone] [place] [address] (Work) [place] [address] Social History Tobacco Use Types Packs/Day Years [...] Code Departure Means Destination Home or Self Half-Way documented in this encounter Plan of Treatment Not on filedocumented as of this encounter Visit Diagnoses Not on filedocumented in this encounter Care Teams Mortgage Loan Coordinator Relationship Specialty Start Date End Date None, Provider PCP - General 10/19/14 03/09/19 documented as of this encounter
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
--- OUTSIDE RECORDS SUMMARY | 2021-11-10 11:31 | XMS_ITS | Encounter Summary ---
:1980 Author Organization [facility] Address [address] [place] [address] Care Team Providers Name Role Phone None, Provider Primary Care Provider Unavailable Anthony Gomez MD Primary Care Provider Encounter Details Date Type Department Care Team Description 06/08/2016 Historical Results Only [facility] - Daniel Gaytan, [facility] - Main [facility] [place] [address] Social History Tobacco Use Types [...] Associated Diagnosis Comme nts BETA-HCG QUANT(WITH Routine 06/08/2016 15:51 Resu lts for this DILUT) - [facility] EST procedure are in the results section. documented in this encounter Results BETA-HCG QUANT(WITH DILUT) - [facility] (06/08/2016 15:51 EST) BETA-HCG 12 mIU/mL [facility] Comment: [facility] ? [...] mIU/mL 2-3 months: ?10,000-100,000 mIU/mL Specimen Narrative [facility] - 016 17:43 EST Does PT Have a Latex Allergy? NO Enter/Edit CPT and ICD codes? N Performing Organization Address City/State/ZIP Code Phon e Number [facility] [address] [place] [address] [facility] documented in this encounter Visit Diagnoses Not on filedocumented in this encounter Care Teams Trip Motor Operator Relationship Specialty Start Date End Date None, Provider PCP - General 10/19/14 03/09/19 Anthony Gomez MD PCP - General 03/10/19 [address] [place], [place] [id number] documented as of this encounter
--- OUTSIDE RECORDS SUMMARY | 2021-11-10 11:31 | XMS_ITS | Encounter Summary ---
:[address] [facility] Address [address] [place] [address] Care Team Providers Name Role Phone None, Provider Primary Care Provider Unavailable Anthony Gomez MD Primary Care Provider Encounter Details Date Type Department Care Team Description 05/03/2016 Historical Results [facility] - Delisa Anne, Only [facility] Lab - Main [place] [address] [place] [address] [address] [place] [address] Social History Tobacco Use Types [...] Associated Diagnosis Comme nts BETA-HCG QUANT(WITH Routine 05/03/2016 15:20 Resu lts for this DILUT) - [facility] EST procedure are in the results section. documented in this encounter Results BETA-HCG QUANT(WITH DILUT) - [facility] (05/03/2016 15:20 EST) BETA-HCG 873 mIU/mL [facility] Comment: [facility] Result called to ERASTO AT [facility] 05/03/16 1600: Result called by ANN ? --Result Comments/Interpretation of Results- - Apparently [...] mIU/mL 2-3 months: ?10,000-100,000 mIU/mL Specimen Narrative [facility] - 016 16:01 EST Does PT Have a Latex Allergy? NO Enter/Edit CPT and ICD codes? N Performing Organization Address City/State/ZIP Code Phon e Number [facility] [address] [place] [address] [facility] documented in this encounter Visit Diagnoses Not on filedocumented in this encounter Care Teams Metal Fabricating Shop Helper Relationship Specialty Start Date End Date None, Provider PCP - General 10/19/14 03/09/19 Anthony Gomez MD PCP - General 03/10/19 [address] [place] [address] documented as of this encounter
--- OUTSIDE RECORDS SUMMARY | 2021-11-10 11:31 | XMS_ITS | Continuity of Care Document ---
:[address] [facility] Address [address] [place] [address] Care Team Providers Name Role Phone PCP, No Primary Care Physician Unavailable Allergies, Adverse Reactions, Alerts No allergy information available. Medications No medication information available. Problem List No problem information available. Procedures Procedure Date Status CHEST 2 VW April 14, 2015 completed Relevant Diagnostic Tests and/or Laboratory Data Laboratory Results Test Date/Time Result Interp. Ref. Range Result Comment White Blood Count April 14, 2015 14.80 1000/mm3 High 4.8-10.8 9:30am Red Blood Count April 14, 2015 5.06 M/mm3 4.20-5.40 9:30am Hemoglobin April 14, 2015 15.3 g/dL 12.0-16.0 9:30am Hematocrit April 14, 2015 44.5 % 37-47 9:30am Mean Corpuscular April 14, 2015 87.9 fL 81.0-99.0 Volume 9:30am Mean Corpuscular April 14, 2015 30.2 pg 27-31 Hemoglobin 9:30am Mean Corpuscular April 14, 2015 34.4 g/dL 33-37 Hemoglobin Concent 9:30am Red Cell April 14, 2015 13.6 % 11.5-14.5 Distribution Width 9:30am Platelet Count April 14, 2015 292 1000/mm3 140-440 9:30am Mean Platelet Volume April 14, 2015 10.2 fL 7.4-10.4 9:30am Neutrophils (%) April 14, 2015 79.5 % High 40.0-72.0 (Auto) 9:30am Lymphocytes (%) April 14, 2015 11.4 % Low 17-45 (Auto) 9:30am Monocytes (%) (Auto) April 14, 2015 5.1 % 3-11 9:30am Eosinophils (%) April 14, 2015 3.8 % High 0-3 (Auto) 9:30am Basophils (%) (Auto) April 14, 2015 0.2 % 0-1 9:30am Neutrophils # (Auto) April 14, 2015 11.76 1000/mm3 High 1.4-6 .5 9:30am Lymphocytes # (Auto) April 14, 2015 1.69 1000/mm3 1.2-3. 4 9:30am Monocytes # (Auto) April 14, 2015 0.76 1000/mm3 0.0-0.8 9:30am Eosinophils # (Auto) April 14, 2015 0.56 1000/mm3 0.0-0. 7 9:30am Basophils # (Auto) April 14, 2015 0.03 1000/mm3 0.0-0.1 9:30am Differential Method April 14, 2015 Automated 9:30am Sodium Level April 14, 2015 142 mmol/L 137-145 9:30am Potassium Level April 14, 2015 4.8 mmol/L 3.6-5.0 9:30am Chloride Level April 14, 2015 106 mmol/L 98-107 9:30am Carbon Dioxide Level April 14, 2015 21 mmol/L Low 22-30 9:30am Anion Gap April 14, 2015 15 7-16 9:30am Blood Urea Nitrogen April 14, 2015 8 mg/dL 7-17 9:30am Creatinine April 14, 2015 0.61 mg/dL 0.52-1.04 9:30am Glomerular April 14, 2015 > 60 mL/min Filtration Rate Calc 9:30am Glucose Level April 14, 2015 88 mg/dL 70-100 9:30am Advance Directives Advance Directive Response Recorded Date/Time Does the patient have a living will? No Mar saumya2014 10:18am Does the patient have an advanced directive? No April 14, 2015 10:18am Power of Road Supervisor Of Engines? No April 14, 2015 10: 18am Hospital Discharge Instructions No known hospital discharge instructions. Encounters Encounter Facility Location Admit Date Discharge Date Attending Provider Departed [facility] April 14April 14, [facility] 2014 7:24am 2014 12:01pm Functional Status No known functional status. Immunizations No known immunizations. Payers Payer Policy Type Covered Covered Libertarian Relationship Subscriber Subscriber Id Name Libertarian Id MVP Commercial DORIAN [id number] SELF/SAME DORIAN [id number] KYLIE PATIENT KYLIE Plan of Care No known plan of care. Social History No known social history. Vital Signs No known vital signs results.
--- OUTSIDE RECORDS SUMMARY | 2021-11-10 11:31 | XMS_ITS | Encounter Summary ---
:1980 Author Organization [facility] Address [address] [place] [address] Care Team Providers Name Role Phone None, Provider Primary Care Provider Unavailable Anthony Gomez MD Primary Care Provider Encounter Details Date Type Department Care Team Description 06/15/2016 Historical Results Only [facility] - Daniel Gaytan, [facility] [place] [facility] [place] [address] Social History Tobacco Use Types [...] Associated Diagnosis Comme nts BETA-HCG QUANT(WITH Routine 06/15/2016 16:15 Resu lts for this DILUT) - [facility] [place] procedure are in the results section. documented in this encounter Results BETA-HCG QUANT(WITH [place]) - [facility] (06/15/2016 16:15 EST) BETA-HCG 5 mIU/mL [facility] Comment: [facility] ? [...] Narrative [facility] - 016 17:13 EST Does PT Have a Latex Allergy? NO Enter/Edit CPT and ICD codes? N Performing Organization Address City/State/ZIP Code Phon e Number [facility] [address] [place] [address] [facility] documented in this encounter Visit Diagnoses Not on filedocumented in this encounter Care Teams Recovery Operator Relationship Specialty Start Date End Date None, Provider PCP - General 10/19/14 03/09/19 Anthony Gomez MD PCP - General 03/10/19 [address] [place], [place] [id number] documented as of this encounter
--- OUTSIDE RECORDS SUMMARY | 2021-11-10 11:31 | XMS_ITS | Encounter Summary ---
:1980 Author Organization [facility] Address [address] [place] [address] Care Team Providers Name Role Phone Anthony Gomez MD Primary Care Provider Reason for Visit Reason Onset Date Comments Follow-up Diagnostic PSG 05/29/2019 Returning Call 05/29/2019 Encounter Details Date Type Department Care Team Description 05/29/[address] [facility] Bhaskar Booth w-up Diagnostic General Surgery - Kali Osorio PSG; Returning Call [address] [place] [address] Pav[place], [place] [address] (Wo rk) Social History Tobacco [...] encounter Miscellaneous Notes Telephone Encounter - Jie Hassan RN - 06/02/[address] Booth, patient's PCP will need to be the one to manage her symptoms and determine her work restrictions prior to her surgery. Above information has been communicated to patient. She is requesting a letter outlining her postoperative restrictions. Letter will be mailed to her per her request. Telephone Encounter - Jie Hassan RN - 05/29/2019 0944 EST Patient was seen by Dr. Booth yesterday for a consultation for achalasia and is requesting a detailed note for work. She states that she needs a note detailing that due to her condition, it is not safe for her to drive. Patient was advised that our office generally doesn't do notes to keep people out of work or modify their work schedule prior to having surgery, that her PCP would need to do this.She states that her PCP told her that he wants our office to do this. Patient is aware that Dr. Booth is in the OR today and that when he is back in clinic on Saturday, I will discuss her request with him and call her back. elephone Encounter - Jayne Banegas - 05/29/2019 0925 EST Patient returned nurse call. elephone Encounter - Julianne Church - 05/29/2019 0842 EST Surgery needs to be placed ,patient is asking if this can be scheduled in October. 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
--- OUTSIDE RECORDS SUMMARY | 2021-11-10 11:31 | XMS_ITS | Encounter Summary ---
:1980 Author Organization [facility] Address [address] [place] [address] Care Team Providers Name Role Phone None, Provider Primary Care Provider Unavailable Anthony Gomez MD Primary Care Provider Encounter Details Date Type Department Care Team Description 09/30/2018 Historical Results [facility] - Delisa Anne, Only [facility] Radiology Resul ts [address] [facility] 130 [place] [address] [address], [address] [place] [phone] Social History Tobacco Use Types Packs/Day Years [...] Associated Diagnosis Comme nts US OB FOLLOWUP 09/30/2018 10:16 Results f or this EDT procedure are i n the results section. GROUP B STREP PCR Routine 09/30/2018 9:16 EDT Res ults for this procedure are i n the results section. documented in this encounter Results US OB FOLLOWUP (09/30/2018 10:16 EDT) Specimen Narrative [facility] - 10/01/2018 8:56 EDT ? EXAM: ULTRASOUND/OB LEVEL 2 FOLLOW UP ? EX. D/ (1016) ? CLINICAL INFORMATION: ? Z3A.36 36 WEEKS GESTATION OF PREG ALEXEY ? See attached report. ??Report als o available in PACS. ? REM:catrina ?Reported B y: Howard Morales MD ? CC: ? Transcribed Date/Time: 10/01/2018 (0856) ? Utility Service Worker: CHRIS ? Printed Date/Time: 03/05/2019 (03 35) ? PAGE 1 ? Ayala d Report ? Procedure Note Howard Morales E - 04/21/2019 EXAM: ULTRASOUND/OB LEVEL 2 FOLLOW UP E X. D/ (1016) CLINICAL INFORMATION: Z3A.36 36 WEEKS GESTATION OF See attached report. Report also availa ble in PACS. REM:kafranco Reported By: Howard Morales MD CC: Transcribed Date/Time: 10/01/2018 (0464 ) Utility Service Worker: CHRIS Printed Date/Time: 03/05/2019 (3122) PAGE 1 Signed Report Performing Organization Address City/State/ZIP Code Phon e Number [facility] GROUP B STREP PCR (09/30/2018 9:16 EDT) Pathologist Sig nature Group B Strep PCR Group B Strep [facility] Not-Detected by CENTER LAB PCR Group B Strep PCR [facility] Group B Strep PCR Not Done [facility] Specimen Narrative [facility] - 019 10:41 EDT Patient allergic to penicillin? Yes Performing Organization Address City/State/ZIP Code Phon e Number [facility] [address] [place] [address] [facility] documented in this encounter Visit Diagnoses Not on filedocumented in this encounter Care Teams Access Service Representative Relationship Specialty Start Date End Date None, Provider PCP - General 10/19/14 03/09/19 Anthony Gomez MD PCP - General 03/10/19 [address] [place] [address] documented as of this encounter
--- OUTSIDE RECORDS SUMMARY | 2021-11-10 11:31 | XMS_ITS | Encounter Summary ---
:1980 Author Organization [facility] Address [address] [place] [address] Care Team Providers Name Role Phone None, Provider Primary Care Provider Unavailable Anthony Gomez MD Primary Care Provider Encounter Details Date Type Department Care Team Description 04/11/2018 Historical Results [facility] - Nancy Graves, Only [facility] [place] Resul ts [place] [facility] [address] [place] [address] [address], [address] [place] [address] Social History Tobacco Use Types [...] Procedure Name Priority Date/Time Associated Diagnosis Comme linette SHAIKH US OB FIRST 04/11/2018 10:45 Results for this TRIMESTER (LESS EDT procedure ar e in THAN 14 WEEKS) the results section. documented in this encounter Results US OB FIRST TRIMESTER (LESS THAN 14 WEEKS) (04/11/2018 10:45 EDT) Specimen Narrative [facility] - 04/14/2018 14:06 EDT ? EXAM: ULTRASOUND/TRANSVAGINAL - OB LIMITE EX. D/ (1045) ? CLINICAL INFORMATION: ? Z33A.11 11 WEEKS GESTATION OF PRE GNANCY ? CHECK HEART RATE ? See attached report. ??Report als o available in PACS. ? MIXED CROP AND LIVESTOCK FARMER:catrina ?Reported B y: Miguel Jha MD ? CC: ? Transcribed Date/Time: 04/14/2018 (1406) ? Respiratory Therapy Aide: CHRIS ? Printed Date/Time: 12/06/2018 (17 04) ? PAGE 1 ? Ayala d Report ? Procedure Note Miguel Jha MD - 04/23/2019 EXAM: ULTRASOUND/TRANSVAGINAL - OB LIMI TE EX. D/ (1045) CLINICAL INFORMATION: Z33A.11 11 WEEKS GESTATION OF CHECK HEART RATE See attached report. Report also availa ble in PACS. MIXED CROP AND LIVESTOCK FARMER:catrina Reported By: Miguel Jha MD CC: Transcribed Date/Time: 04/14/2018 (7816 ) Respiratory Therapy Aide: CHRIS Printed Date/Time: 12/06/2018 (0403) PAGE 1 Signed Report Performing Organization Address City/State/ZIP Code Phon e Number [facility] documented in this encounter Visit Diagnoses Not on filedocumented in this encounter Care Teams Branch Operations Coordinator Relationship Specialty Start Date End Date None, Provider PCP - General 10/19/14 03/09/19 Anthony Gomez MD PCP - General 03/10/19 [address] [place] [address] documented as of this encounter
--- OUTSIDE RECORDS SUMMARY | 2021-11-10 11:31 | XMS_ITS | Encounter Summary ---
:1980 Author Organization [facility] Address [address] [place] [address] Care Team Providers Name Role Phone None, Provider Primary Care Provider Unavailable Anthony Gomez MD Primary Care Provider Encounter Details Date Type Department Care Team Description 02/24/2018 Historical Results [facility] - Hans Mccrary, Only [facility] Lab - [place] Blanca Oseguera MD [address] [facility] [address] [place] [address] [place] [address] Social History Tobacco Use Types Packs/Day Years [...] Procedure Name Priority Date/Time Associated Comments Diagnosis HEMOGLOBIN A1C Routine 02/24/2018 13:37 Results f or this EDT procedure are i n the results section. LIPID PROFILE Routine 02/24/2018 13:37 Results fo r this (INCLUDES EDT procedure are i n CHOLESTEROL, the results TRIGLYCERIDES, HDL, section. LDL) BASIC METABOLIC Routine 02/24/2018 13:37 Results for this PANEL (BMP) EDT procedure are i n the results section. documented in this encounter Results LIPID PROFILE (INCLUDES CHOLESTEROL, TRIGLYCERIDES, HDL, LDL) (02/24/2018 13:37 EDT) Triglyceride 184 <150 mg/dL [facility] Comment: MED CENTER LAB Adult: Normal: ?<150 mg/dl ? Borderline High: 150-199 mg/dl ? High: ?200-499 mg/dl ? Very High: >el=586 Cholesterol 157 <200 mg/dL [facility] Comment: [facility]ENTER [facility] Acceptable: ??<200 Borderline: ??200-239 High: ?> or = 240 Chol/HDL Ratio 3.7 0 - 4.5 [facility] Comment: [facility] DESIRABLE RATIO IS LESS THAN 4.1 PATIENTS ARE CONSIDERED AT RISK: WOMEN RATIO >5 MEN RATIO >6 FASTING? - [facility] No [facility] HDL 42 40 - 60 mg/dL [facility] Comment: MED [facility]ENTER [facility] ?? Reference Range Low: ? < 40 ??mg/dL Normal: ??40-60 mg/dL High: ?>= 60 mg/dL LDL CHOLESTEROL - 78 60 - 100 [facility] mg/dL [facility] Non HDL Cholesterol 115 mg/dl [facility] Comment: [facility]ENTER [facility] Desirable: ?Less than 130 Borderline High: ??130-159 High: ? 160-189 Very High: ?Greater than or equal to 190 Specimen Narrative [facility] - 018 15:34 EDT Does PT Have a Latex Allergy? NO Performing Organization Address City/State/ZIP Code Phon e Number [facility] [address] [facility] BASIC METABOLIC PANEL (BMP) (02/24/2018 13:37 EDT) BUN - [facility] 11 10 - 26 mg/dL [facility] CALCIUM - [facility] 9.4 8.5 - 10.5 [facility] mg/dL [facility] Chloride 102 96 - 110 [facility] mmol/L [facility] CO2 Total 24 22 - 32 mEq/L [facility] CREATININE 0.74 0.52 - 1.04 [facility] mg/dL [facility] eGFR >60 [facility] Comment: MED CENTER [facility] Chronic renal impairment is defined as GFR <60 Multiply result by 1.210 for patients . eGFR calculated using the IDMS-traceable MDRD Study Equation. ??(effective 04/19/2014) Anion Gap 13 0 - 18 [facility] GLUCOSE - [facility] 74 70 - 100 mg/dL [facility] Potassium 4.1 3.5 - 5.0 [facility] mEq/L [facility] Sodium 139 136 - 145 [facility] mEq/L [facility] Specimen Narrative [facility] - 018 15:34 EDT Does PT Have a Latex Allergy? NO Performing Organization Address City/[facility] Phon e Number [facility] [address] LAB HEMOGLOBIN A1C (02/24/2018 13:37 EDT) Pathologist Sig nature Hemoglobin A1c 5.2 4.0 - 6.0 % [facility] Est Avg Glucose 103 mg/dL [facility] Specimen Narrative [facility] - 018 21:20 EDT Does PT Have a Latex Allergy? NO Performing Organization Address City/[facility] Code Phon e Number [facility] [address] LAB documented in this encounter Visit Diagnoses Not on filedocumented in this encounter Care Teams Safety Assistant Relationship Specialty Start Date End Date None, Provider PCP - General 10/19/14 03/09/19 Anthony Gomez MD PCP - General 03/10/19 [address] [place], [place] [id number] documented as of this encounter
--- OUTSIDE RECORDS SUMMARY | 2021-11-10 11:31 | XMS_ITS | Encounter Summary ---
:1980 Author Organization [facility] Address [address] [place] [address] Care Team Providers Name Role Phone None, Provider Primary Care Provider Unavailable Anthony Gomez MD Primary Care Provider Encounter Details Date Type Department Care Team Description 04/28/2016 Historical Results [facility] - Delisa Anne, Only [facility] Radiology Resul ts [address] [facility] [address] [place] [address] [address], [address] [place] [phone] Social History Tobacco Use Types Packs/Day Years [...] Procedure Name Priority Date/Time Associated Comments Diagnosis US OB FIRST TRIMESTER 04/28/2016 0:30 Res ults for this (LESS THAN 14 WEEKS) EST procedu re are in TRANSVAGINAL the results section. documented in this encounter Results US OB FIRST TRIMESTER (LESS THAN 14 WEEKS) TRANSVAGINAL (04/28/2016 0:30 EST) Specimen Narrative [facility] - 04/28/2016 0:30 EST ? EXAM: ULTRASOUND/TRANSVAGINAL - OB (LEVEL EX. D/ (8003) ? CLINICAL INFORMATION: ? O00.90, UNSPECIFIED ECTOPIC PREGN MIKEL WITHOUT ? INTRAUTERINE ? EXAM: ? US Pelvis, Transvaginal. ? CLINICAL HISTORY: ? 36 years old, female; Signs an d symptoms; Lmp or gestational ? age (in weeks): About 8 weeks by lmp; Other: Abnormal hcg values ? and bleeding; ; Patient H X: Hcg values were declining, ? went down to 1500, then back up t o 1700. Patient was scanned ? several days ago and there has be en no change in appearance of ? anything. The patient is not expe riencing pain and was not ? tender during the ultrasound. ; A dditional info: O00.90, ? unspecified ectopic wit hout ? TECHNIQUE: ? Real-time transvaginal pelvic ultrasound (complete) with image ? documentation. ??Transvaginal armin ging was used for better ? evaluation of the endometrium and adnexa. ? COMPARISON: ? US - TRANSVAGINAL - OB (LEVEL 1) 04/18/2016 1:08:27 PM ? FINDINGS: ? Endometrium: ??The endometrial measures 12 mm. ??No intrauterine ? gestational sac is identified. ? Uterus/cervix: The uterus ally ures 9.2 x 4.4 x 5.8 cm and. ??No ? myometrial mass. ? Right ovary: ??The right ovary measures 4.5 x 2.3 x 3.4 cm. ? Simple right ovarian cyst measure s up to 2.4 cm ??Normal blood ? flow. ? Left ovary: ??The left ovary m easures 2.6 x 3.2 x 2.3 cm. ? Normal blood flow. ? Free fluid: ??No free fluid. ? Bladder: ??Empty bladder which cannot be evaluated with this ? probe. ? IMPRESSION: ? No intrauterine gestation iden tified. ??This may be due to an ? ongoing . ??Ectopic pregn mikel cannot be excluded. ? Correlation with serial quantitat vandana beta hCGs essential. ? REPORT SIGNED IN OTHER VENDOR SYSTEM 04/28/2016 ?Reported B y: Eileen Ewing MD ? CC: ? Transcribed Date/Time: 04/28/2016 (0030) ? Knifer Up: .VRAD ? Printed Date/Time: 11/29/2018 (04 52) ? PAGE 1 ? Ayala d Report ? Procedure Note Eileen Ewing MD - 04/22/2019 EXAM: ULTRASOUND/TRANSVAGINAL - OB (LEV EL EX. D/ (1743) CLINICAL INFORMATION: O00.90, UNSPECIFIED ECTOPIC W ITHOUT INTRAUTERINE EXAM: US Pelvis, Transvaginal. CLINICAL HISTORY: 36 years old, female; Signs and symptom s; Lmp or gestational age (in weeks): About 8 weeks by lmp; O ther: Abnormal hcg values and bleeding; ; Patient HX: Hcg values were declining, went down to 1500, then back up to 1700 . Patient was scanned several days ago and there has been no change in appearance of anything. The patient is not experienci ng pain and was not tender during the ultrasound. ; Additio nal info: O00.90, unspecified ectopic without TECHNIQUE: Real-time transvaginal pelvic ultrasoun d (complete) with image documentation. Transvaginal imaging was used for better evaluation of the endometrium and adnex a. COMPARISON: US - TRANSVAGINAL - OB (LEVEL 1) 016 1:08:27 PM FINDINGS: Endometrium: The endometrial measures 1 2 mm. No intrauterine gestational sac is identified. Uterus/cervix: The uterus measures 9.2 x 4.4 x 5.8 cm and. No myometrial mass. Right ovary: The right ovary measures 4 .5 x 2.3 x 3.4 cm. Simple right ovarian cyst measures up t o 2.4 cm Normal blood flow. Left ovary: The left ovary measures 2.6 x 3.2 x 2.3 cm. Normal blood flow. Free fluid: No free fluid. Bladder: Empty bladder which cannot be evaluated with this probe. IMPRESSION: No intrauterine gestation identified. T his may be due to an ongoing . Ectopic can not be excluded. Correlation with serial quantitative be ta hCGs essential. REPORT SIGNED IN OTHER VENDOR SYSTEM 04/28/2016 Reported By: Eileen Ewing MD CC: Transcribed Date/Time: 04/28/2016 (0030 ) Knifer Up: Printed Date/Time: 11/29/2018 (1579) PAGE 1 Signed Report Performing Organization Address City/State/ZIP Code Phon e Number [facility] documented in this encounter Visit Diagnoses Not on filedocumented in this encounter Care Teams Forensic Artist Relationship Specialty Start Date End Date None, Provider PCP - General 10/19/14 03/09/19 Anthony Gomez MD PCP - General 03/10/19 [address] [place] [address] documented as of this encounter
--- OUTSIDE RECORDS SUMMARY | 2021-11-10 11:31 | XMS_ITS | Encounter Summary ---
:1980 Author Organization [facility] Address [address] [place] [address] Care Team Providers Name Role Phone None, Provider Primary Care Provider Unavailable Anthony Gomez MD Primary Care Provider Encounter Details Date Type Department Care Team Description 10/20/2018 Historical Results [facility] - Janina Fitzgerald, Only [facility] Lab - [place] [address] [place] [address] [facility], [address] [place] [address] Social History Tobacco Use Types [...] Procedure Name Priority Date/Time Associated Comments Diagnosis COMPLETE BLOOD COUNT Routine 10/20/2018 15:18 Res ults for this WITH DIFFERENTIAL EDT procedure are in (AUTO) the results section. documented in this encounter Results (ABNORMAL) COMPLETE BLOOD COUNT WITH DIFFERENTIAL (AUTO) (10/20/2018 15:18 EDT) ABSOLUTE NEUTROPHIL 9.3 (H) 2.2 - 8.85 [facility] COUN - [facility] 10e3/uL [facility] BASO # - [facility] 0.02 0.01 - 0.11 [facility] 10e/uL [facility] BASO % - [facility] 0 0 - 2 % [facility] EOS # - [facility] 0.05 0.03 - 0.61 [facility] 10e3/ul [facility] CENTER LAB EOS % - [facility] 0 0 - 5 % [facility] GRAN % - [facility] 82.1 (H) 40 - 80 % [facility] HEMATOCRIT - [facility] 26.9 (L) 34.9 - 44.4 % [facility] HEMOGLOBIN - [facility] 8.8 (L) 11.6 - 15.2 [facility] Comment: g/dl [facility] CENTER LAB Result called to NOEMÍ HAYES OBS 10/20/18 1528: Result called by CW IG# - [facility] 0.09 0 - 0.7 [facility] 10e3/uL [facility] CENTER LAB IG% - [facility] 0.8 0 - 0.9 % [facility] LYMPH # - [facility] 1.3 1.09 - 3.3 [facility] 10e3/ul [facility] LYMPH% - [facility] 11.6 (L) 20 - 40 % [facility] MEAN CORPUSCULAR 29.5 26.7 - 33.3 [facility] HGB - [facility] pg [facility] CENTER LAB MEAN CORPUSCULAR 32.7 32.1 - 35.9 [facility] HGB CONC - [facility] g/dL [facility] CENTER LAB MEAN CELL VOLUME - 90.3 81 - 98 fl [facility] CENTER LAB MONO # - [facility] 0.6 0.1 - 0.8 [facility] 10e3/uL [facility] CENTER LAB MONO% - [facility] 4.9 0 - 12 % [facility] PLATELET COUNT 178 141 - 377 [facility] 10e3/ul [facility] LAB RED BLOOD COUNT - 2.98 (L) 3.86 - 5.04 [facility] 10e3/ul [facility] LAB RED CELL DISTRI 15.5 <14.7 % [facility] WIDTH - [facility] WHITE BLOOD COUNT - 11.3 4.0 - 12.4 [facility] 10e3/ul [facility] LAB Specimen Performing Organization Address City/State/ZIP Code Phon e Number [facility] [address] [place] [address] [facility] documented in this encounter Visit Diagnoses Not on filedocumented in this encounter Care Teams Loan Administrator Relationship Specialty Start Date End Date None, Provider PCP - General 10/19/14 03/09/19 Anthony Gomez MD PCP - General 03/10/19 [address] [place] [address] documented as of this encounter
--- OUTSIDE RECORDS SUMMARY | 2021-11-10 11:31 | XMS_ITS | Encounter Summary ---
:1980 Author Organization [facility] Address [address] [place] [address] Care Team Providers Name Role Phone None, Provider Primary Care Provider Unavailable Encounter Details Date Type Department Care Team Description 04/09/2016 Hospital Encounter [facility] - Unknown, Fanny oconnor [facility] [phone] [place] [address] (Work) [place] [address] Social History Tobacco Use Types Packs/Day Years [...] Code Departure Means Destination Home or Self [facility] documented in this encounter Plan of Treatment Not on filedocumented as of this encounter Visit Diagnoses Not on filedocumented in this encounter Care Teams Tick Eradicator Relationship Specialty Start Date End Date None, Provider PCP - General 10/19/14 03/09/19 documented as of this encounter
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
--- OUTSIDE RECORDS SUMMARY | 2021-11-10 11:31 | XMS_ITS | Encounter Summary ---
:1980 Author Organization [facility] Address [address] [place] [address] Care Team Providers Name Role Phone None, Provider Primary Care Provider Unavailable Anthony Gomez MD Primary Care Provider Encounter Details Date Type Department Care Team Description 04/30/2016 Historical Results [facility] - Delisa Hamlin, Only [facility] Lab - [place] [address] [place] [address] [address], [address] [place] [address] Social History Tobacco Use Types [...] Associated Diagnosis Comme nts BETA-HCG QUANT(WITH Routine 04/30/2016 15:12 Resu lts for this DILUT) - [facility] EST procedure are in the results section. documented in this encounter Results BETA-HCG QUANT(WITH DILUT) - [facility] (04/30/2016 15:12 EST) BETA-HCG 1,399 mIU/mL [facility] QUANTITATIVE Comment: MED CENTER [...] mIU/mL 2-3 months: ?10,000-100,000 mIU/mL Specimen Narrative [facility] - 016 16:15 EST Does PT Have a Latex Allergy? NO Enter/Edit CPT and ICD codes? N Result called to [facility]STO [facility] 04/30/16 1620: Result called by [facility] Performing Organization Address City/State/ZIP Code Phon e Number [facility] [address] [place] [address] [facility] documented in this encounter Visit Diagnoses Not on filedocumented in this encounter Care Teams Freight Engineer Relationship Specialty Start Date End Date None, Provider PCP - General 10/19/14 03/09/19 Anthony Goemz MD PCP - General 03/10/19 [address] [place] [address] documented as of this encounter
--- OUTSIDE RECORDS SUMMARY | 2021-11-10 11:31 | XMS_ITS | Encounter Summary ---
:1980 Author Organization [facility] Address [address] [place] [address] Care Team Providers Name Role Phone None, Provider Primary Care Provider Unavailable Anthony Gomez MD Primary Care Provider Encounter Details Date Type Department Care Team Description 04/25/2018 Historical Results [facility] - Nancy Graves, Only [facility] [place] [employer] [address] [place] [address] [address], [address] [place] [phone] Social History Tobacco Use Types Packs/Day Years [...] Name Priority Date/Time Associated Diagnosis Comme nts [facility] - Routine 04/25/2018 9:10 EST Re sults for this CV procedure are i n the results section. documented in this encounter Results [facility] - CV (04/25/2018 9:10 EST) [facility] - See note [facility] Comment: [facility] CENTER LAB Kit or Tubes Drawn? ??Kit Transported by UPS,FedEx or Health Underwriter: ??FedEx Destination: ??[employer] [address] [place] [address] Test Performed: [employer]: Kit Tracking #: ??[id number] Specimen Narrative [facility] - 018 10:14 EST Does PT Have a Latex Allergy? NO Performing Organization Address City/State/ZIP Code Phon e Number [facility] [address] LAB documented in this encounter Visit Diagnoses Not on filedocumented in this encounter Care Teams Ram Car Operator Relationship Specialty Start Date End Date None, Provider PCP - General 10/19/14 03/09/19 Anthony Gomez MD PCP - General 03/10/19 [address] [place] [address] documented as of this encounter
--- OUTSIDE RECORDS SUMMARY | 2021-11-10 11:31 | XMS_ITS | Encounter Summary ---
:1980 Author Organization [facility] Address [address] [place] [address] Care Team Providers Name Role Phone None, Provider Primary Care Provider Unavailable Reason for Visit Reason Onset Date Comments Appointment Related 12/20/2014 Encounter Details Date Type Department Care Team Description 12/20/2014 Telephone [facility] Acute Estefanía Mariee R N Appointment Related Care Surgery - [facility] [address] [place] [address] Social History Tobacco Use Types Packs/Day Years [...] Telephone Encounter - Estefanía Mariee RN - 12/21/2014 3581 EDT Spoke to patient who states she would rather just pick up and delivery driver the garment sleeve at the [facility] onT and will call back for appointment later. Will cancel appointment for per patient. She is aware to call for follow up appointment and she will calll the Medical store to confirm that the garment has arrived. elephone Encounter - Estefanía Mariee RN - 12/20/2014 1100 EDT Message left for patient to return call as the Medical Store Rep will not be here this week for appointment and patient's garment has not arrived yet, but should be available on . Patient can pick up and delivery driver garment at the store and cancel appointment and reschedule for later, or keep appointment and pick up and delivery driver garment after appointment. Will await return call. documented in this encounter Plan of Treatment Not on filedocumented as of this encounter Visit Diagnoses Not on filedocumented in this encounter Care Teams Electrician Substation Supervisor Relationship Specialty Start Date End Date None, Provider PCP - General 10/19/14 03/09/19 documented as of this encounter
--- OUTSIDE RECORDS SUMMARY | 2021-11-10 11:31 | XMS_ITS | Encounter Summary ---
:1980 Author Organization [facility] Address [address] [place] [address] Care Team Providers Name Role Phone None, Provider Primary Care Provider Unavailable Anthony Gomez MD Primary Care Provider Encounter Details Date Type Department Care Team Description 03/20/2018 Historical Results [facility] - Nancy Graves, Only [facility] Radiology Resul ts RN DELIVERY [address] [place] [address] [address], [address] [place] [address] Social History Tobacco Use Types [...] Procedure Name Priority Date/Time Associated Comments Diagnosis GC/CHLAMYDIA PCR - [facility] Routine 03/20/2018 14:44 Results for this EDT procedure are i n the results section. URINE CHEMICAL (DIP) & Routine 03/20/2018 14:44 R esults for this SEDIMENT (MICRO) EDT procedure a re in WITHOUT REFLEX TO the result s CULTURE section. BACTERIAL CULTURE, Routine 03/20/2018 14:44 Resul ts for this URINE EDT procedure are i n the results section. US OB FIRST TRIMESTER 03/20/2018 14:12 Re sults for this (LESS THAN 14 WEEKS) EDT procedu re are in TRANSVAGINAL the results section. HUMAN PAPILLOMAVIRUS Routine 03/20/2018 10:02 Res ults for this (HPV) DETECTION-HIGH EDT procedu re are in RISK TYPES the results section. PAP TEST Routine 03/20/2018 Results for thi s procedure are i n the results section. documented in this encounter Results BACTERIAL CULTURE, URINE (03/20/2018 14:44 EDT) USUAL UROGENITAL ADELE - [facility] UUV [facility] CitrateConcentration <10,000 CFU/ML [facility] Specimen Performing Organization Address City/State/ZIP Code Phon e Number [facility] [address] LAB GC/CHLAMYDIA PCR - [facility] (03/20/2018 14:44 EDT) Pathologist Sig nature CHLAMYDIA PCR - [facility] NOT DETECTED [facility] GONORRHEA PCR - [facility] NOT DETECTED [facility] SOURCE CERVIX [facility] Specimen Performing Organization Address City/[facility]/ZIP Code Phon e Number [facility] [address] LAB UA, CHEMICAL AND SEDIMENT ANALYSIS (DIPSTICK AND MICROSCOPIC) (03/20/2018 14:44 EDT) Pathologist Sig nature URINE APPEARANCE - Clear CLEAR [facility] URINE BILIRUBIN - Negative NEGATIVE [facility] DIPSTICK [facility] LAB URINE BLOOD - [facility] Negative NEG [facility] URINE COLOR - [facility] Yellow YELLOW [facility] URINE GLUCOSE - Negative NEGATIVE [facility] DIPSTICK [facility] LAB URINE KETONE - [facility] Negative NEGATIVE [facility] URINE LEUK ESTERASE - Negative NEG [facility] URINE NITRITE - Negative NEG [facility] DIPSTICK - [facility] LAB URINE PH - [facility] 7.5 4.0 - 8.0 [facility] URINE PROTEIN - Negative NEG [facility] DIPSTICK [facility] LAB URINE SPECIFIC GRAVITY 1.010 1.001 - 1.035 [facility] M ED - [facility] LAB URINE UROBILINOGEN - 0.2 0.2 - 1.0 [facility] Specimen Performing Organization Address City/State/ZIP Code Phon e Number [facility] [address] LAB US OB FIRST TRIMESTER (LESS THAN 14 WEEKS) TRANSVAGINAL (03/20/2018 14:12 EDT) Specimen Narrative [facility] - 03/21/2018 10:42 EDT ? EXAM: ULTRASOUND/TRANSVAGINAL - OB (LEVEL EX. D/ (1412) ? CLINICAL INFORMATION: ? Z34.90 CARE, ANTEPARTUM ? DATING/VIABILITY ? See attached report. ??Report als o available in PACS. ? REM:dnl ?Reported B y: Howard Morales MD ? CC: ? Transcribed Date/Time: 03/21/2018 (1042) ? Assisted Living Administrator: SHAW ? Printed Date/Time: 12/06/2018 (17 04) ? PAGE 1 ? Ayala d Report ? Procedure Note Howard Morales MD - 04/23/2019 EXAM: ULTRASOUND/TRANSVAGINAL - OB (RADAMES EL EX. D/ (1412) CLINICAL INFORMATION: Z34.90 CARE, ANTEPARTUM DATING/VIABILITY See attached report. Report also availa ble in PACS. REM:dnl Reported By: Howard Morales MD CC: Transcribed Date/Time: 03/21/2018 (1042 ) Assisted Living Administrator: SHAW Printed Date/Time: 12/06/2018 (8988) PAGE 1 Signed Report Performing Organization Address [facility]/ZIP Code Phon e Number [facility] HUMAN PAPILLOMAVIRUS (HPV) DETECTION-HIGH RISK TYPES (03/20/2018 10:02 EDT) Human Papillomavirus NEG [facility] (HPV) Detection-High Comment: [facility] LAB Types Negative for HPV types 16, 18, 31, 33, 35, 39, 45, 51, 52, 56, 58, 59, 66, 68. Method: Cervista HPV HR (High Risk) DNA test. Specimen Performing Organization Address City/[facility]/ZIP Code Phon e Number [facility] [address] [place], [place] [id number] [place] [address] LAB PAP TEST (03/20/2018) Specimen Narrative [facility] - 018 10:24 EDT Name: SUGEY SOSA I ? : 84 ?Age/Sex: 38/F ?Unit#: [id number] ? Loc: AGO ? Status: REG POV ?? Reg Date: 03/20/18 ? Pt.Phone Number : ? Specimen: [id number] ?STA TUS: SOUT ?Spec Date:03/20/18 ? Physician Copies: ?Nancy Graves ? Tissues: ? Cervical/Endo Pap ? CPT: 24985 ?? Units: ??1 ? CYTOLOGY DIAGNOSIS SPECIMEN ADEQUACY: ?Satisfactory for evaluation. Transformation zone component ABSENT. GENERAL CATEGORIZATION: ?Negative fo r Intraepithelial Lesion or Malignancy DESCRIPTIVE DIAGNOSIS: ? Negative fo r Intraepithelial Lesion or Malignancy. ?HPV DNA RESULTS ? LABORATORY ?? Date ? Time Test ?Result ?? Flag ?Normal Range ?? 03/20/18 1002 HPV DNA RESULT ??NEG ? Negative for HP V types 16, 18, 31, 33, 35, 39, 45, 51, 52, ? 56, 58, 59, 66, 68. ? Method: Cervist a HPV HR (High Risk) DNA test. ORDER QUERIES: LMP: 01/20/18- ?Preg nant? Y Post ? N ??PREVIOUS ATYPICAL: N BCP/HRT? N Rad Rx? N IUD? N ??PAP PLUS HPV? Y ??REFLEX TO HR-HPV IF ASCUS Y REFLEX TO HPV 16/18 IF HPV POS/PAP NEG Y HPV REGARDLESS? Y ??RFLX HPV IF LSIL ?? Signed Kali Hyatt CT(ASCP) 03/27/18 By the signature above, the attending ph ysician certifies that he/she has personally conducted a gross and/or microscopic exa mination of the described specimens and rendered or confirmed the above diagnosi s. Test Performed by [facility], [address] [place] [address] Painting And Coating Worker: Alisha Rowell MD PHD Performing Organization Address City/State/[facility] Code Phon e Number [facility] [address] [place] [address] LAB documented in this encounter Visit Diagnoses Not on filedocumented in this encounter Care Teams Traffic Signal Mechanic Relationship Specialty Start Date End Date None, Provider PCP - General 10/19/14 03/09/19 Anthony Gomez MD PCP - General 03/10/19 [address] [place] [address] documented as of this encounter
--- OUTSIDE RECORDS SUMMARY | 2021-11-10 11:31 | XMS_ITS | Encounter Summary ---
:1980 Author Organization [facility] Address [address] [place] [address] Care Team Providers Name Role Phone None, Provider Primary Care Provider Unavailable Anthony Gomez MD Primary Care Provider Encounter Details Date Type Department Care Team Description 12/16/2018 Historical Results [facility] - Janina Fitzgerald, Only [facility] [place] [address] [place] [address] [facility], [address] [place] [address] Social History Tobacco Use Types [...] Name Priority Date/Time Associated Diagnosis Comme nts GC/CHLAMYDIA/TRICHO Routine 12/16/2018 11:38 Resu lts for this MONAS PCR - [facility] EDT procedure a re in the results section. documented in this encounter Results GC/CHLAMYDIA/TRICHOMONAS PCR - [facility] (12/16/2018 11:38 EDT) CHLAMYDIA PCR - [facility] NOT DETECTED [facility] GONORRHEA PCR - [facility] NOT DETECTED [facility] SOURCE CERVIX [facility] TRICHOMONAS NOT DETECTED [facility] VAG[facility] PCR Comment: [facility] Xpert TV assay performance has not been evaluated in women or in patients with a history of hysterectomy. Specimen Performing Organization Address City/State/ZIP Code Phon e Number [facility] [address] [place] [address] [facility] documented in this encounter Visit Diagnoses Not on filedocumented in this encounter Care Teams Payroll Accounting Specialist Relationship Specialty Start Date End Date None, Provider PCP - General 10/19/14 03/09/19 Anthony Gomez MD PCP - General 03/10/19 [address] [place] [address] documented as of this encounter
--- OUTSIDE RECORDS SUMMARY | 2021-11-10 11:31 | XMS_ITS | Encounter Summary ---
:1980 Author Organization [facility] Address [address] [place] [address] Care Team Providers Name Role Phone None, Provider Primary Care Provider Unavailable Anthony Gomez MD Primary Care Provider Encounter Details Date Type Department Care Team Description 04/12/2016 Historical Results [facility] - Ana Rosa Christian MD Only [facility] Radiology Resul ts 130 [facility] 130 [facility] [address]OB[address], [address] [place] [address] [place], [place] [phone] [address] Social History Tobacco Use Types Packs/Day [...] Associated Comments Diagnosis US OB FIRST TRIMESTER 04/12/2016 9:45 Res ults for this (LESS THAN 14 WEEKS) EDT procedu re are in TRANSVAGINAL the results section. documented in this encounter Results US OB FIRST TRIMESTER (LESS THAN 14 WEEKS) TRANSVAGINAL (04/12/2016 9:45 EDT) Specimen Narrative [facility] - 04/12/2016 14:08 EDT ? EXAM: ULTRASOUND/TRANSVAGINAL - OB (LEVEL EX. D/ (0945) ? CLINICAL INFORMATION: ? Z33.1 OF UNKNOWN ANATOM IC LOCATION ? DATING AND VIABILITY ? See attached report. ??Report als o available in PACS. ? JSP:[email or web address] ?Reported B y: Andrew Dominique MD ? CC: ? Transcribed Date/Time: 04/12/2016 (1408) ? Stock Driver: CHRIS ? Printed Date/Time: 11/28/2018 (16 41) ? PAGE 1 ? Ayala d Report ? Procedure Note Andrew Dominique MD - 04/22/2019 EXAM: ULTRASOUND/TRANSVAGINAL - OB (LEV EL EX. D/ (5845) CLINICAL INFORMATION: Z33.1 OF UNKNOWN ANATOMIC LOC ATION DATING AND VIABILITY See attached report. Report also availa ble in PACS. JSP:[email or web address] Reported By: Andrew Dominique MD CC: Transcribed Date/Time: 04/12/2016 (4495 ) Stock Driver: CHRIS Printed Date/Time: 11/28/2018 (4668) PAGE 1 Signed Report Performing Organization Address City/State/ZIP Code Phon e Number [facility] documented in this encounter Visit Diagnoses Not on filedocumented in this encounter Care Teams Surgical Assistant Relationship Specialty Start Date End Date None, Provider PCP - General 10/19/14 03/09/19 Anthony Gomez MD PCP - General 03/10/19 [address] [place] [address] documented as of this encounter
--- OUTSIDE RECORDS SUMMARY | 2021-11-10 11:31 | XMS_ITS | Encounter Summary ---
:1980 Author Organization [facility] Address [address] [place] [address] Care Team Providers Name Role Phone None, Provider Primary Care Provider Unavailable Anthony Gomez MD Primary Care Provider Encounter Details Date Type Department Care Team Description 04/18/2016 Historical Results [facility] - Janina Fitzgerald, Only [facility] Radiology Resul ts 130 [facility] 130 [place], [place] [address] [place] [address]-A, [address] [place] [phone] Social History Tobacco Use Types Packs/Day Years [...] Associated Comments Diagnosis US OB FIRST TRIMESTER 04/18/2016 13:41 Re sults for this (LESS THAN 14 WEEKS) EDT procedu re are in TRANSVAGINAL the results section. BETA-HCG QUANT(WITH Routine 04/18/2016 10:48 Resu lts for this DILUT) - [facility] EDT procedure are in the results section. documented in this encounter Results US OB FIRST TRIMESTER (LESS THAN 14 WEEKS) TRANSVAGINAL (04/18/2016 13:41 EDT) Specimen Narrative [facility] - 04/18/2016 16:07 EDT ? EXAM: ULTRASOUND/TRANSVAGINAL - OB (LEVEL EX. D/ (1341) ? CLINICAL INFORMATION: ? DATING AND VIABILITY ? PERGNANCY LOCALIZATION ? Z33.1 ? See attached report. ??Report als o available in PACS. ? REM:kafranco ?Reported B y: Howard Morales MD ? CC: ? Transcribed Date/Time: 04/18/2016 (1607) ? Tax Manager Public: CHRIS ? Printed Date/Time: 11/29/2018 (04 52) ? PAGE 1 ? Ayala d Report ? Procedure Note Howard Morales E - 04/22/2019 EXAM: ULTRASOUND/TRANSVAGINAL - OB (LEV EL EX. D/ (1341) CLINICAL INFORMATION: DATING AND VIABILITY PERGNANCY LOCALIZATION Z33.1 See attached report. Report also availa ble in PACS. REM:kad Reported By: Howard Morales MD CC: Transcribed Date/Time: 04/18/2016 (1787 ) Tax Manager Public: CHRIS Printed Date/Time: 11/29/2018 (4457) PAGE 1 Signed Report Performing Organization Address [facility] Phon e Number [facility] BETA-HCG QUANT(WITH DILUT) - [facility] (04/18/2016 10:48 EDT) BETA-HCG 1,858 mIU/mL [facility] Comment: [facility] Result called to ERASTO AT DR EDUARDO OFFICE 04/18/16 1316: Result called by MLS ? --Result Comments/Interpretation of Results- - Apparently [...] mIU/mL 2-3 months: ?10,000-100,000 mIU/mL Specimen Narrative [facility] - 016 13:16 EDT Does PT Have a Latex Allergy? YES Enter/Edit CPT and ICD codes? N Performing Organization Address [facility] Phon e Number [facility] [address] LAB documented in this encounter Visit Diagnoses Not on filedocumented in this encounter Care Teams Firer Tunnel Kiln Relationship Specialty Start Date End Date None, Provider PCP - General 10/19/14 03/09/19 Anthony Gomez MD PCP - General 03/10/19 [address] [place], [place] [id number] documented as of this encounter
--- OUTSIDE RECORDS SUMMARY | 2021-11-10 11:31 | XMS_ITS | Encounter Summary ---
:1980 Author Organization [facility] Address [address] [place] [address] Care Team Providers Name Role Phone None, Provider Primary Care Provider Unavailable Anthony Gomez MD Primary Care Provider Encounter Details Date Type Department Care Team Description 06/11/[address] [facility] - Daniel Gaytan, [facility] Radiology Resul ts [address] [place] [address] Social History Tobacco Use Types [...] Date/Time Associated Diagnosis Comme nts US OB ROUTINE 06/11/2018 10:23 Results fo r this (GREATER THAN 14 EST procedure a re in WEEKS) the results section. documented in this encounter Results US OB ROUTINE (GREATER THAN 14 WEEKS) (06/11/2018 10:23 EST) Specimen Narrative [facility] - 06/11/2018 14:21 EST ? EXAM: ULTRASOUND/OB-LEVEL 2 ? EX. D/ (1023) ? CLINICAL INFORMATION: ? Z36.3 ENCOUNTER FOR SCR EENING FOR ? MALFORMATION ? ASSESSMENT, GESTATIONAL AGE ? LUBNA 10/27/18 ? See attached report. ??Report als o available in PACS. ? BS:[email or web address] ?Reported B y: Kamala Webber MD ? CC: ? Transcribed Date/Time: 06/11/2018 (3791) ? Tube Sizer And Cutter Operator: CHRIS ? Printed Date/Time: 12/07/2018 (18 10) ? PAGE 1 ? Ayala d Report ? Procedure Note Kamala Webber MD - 04/23/2019 EXAM: ULTRASOUND/OB-LEVEL 2 EX. D/T: (1023) CLINICAL INFORMATION: Z36.3 ENCOUNTER FOR SCREENING FOR MALFORMATION ASSESSMENT, GESTATIONAL AGE LUBNA 10/27/18 See attached report. Report also availa ble in PACS. BS:[email or web address] Reported By: Kamala Webber MD CC: Transcribed Date/Time: 06/11/2018 (1101 ) Tube Sizer And Cutter Operator: CHRIS Printed Date/Time: 12/07/2018 (5448) PAGE 1 Signed Report Performing Organization Address City/State/ZIP Code Phon e Number [facility] documented in this encounter Visit Diagnoses Not on filedocumented in this encounter Care Teams Rice Cleaning Machine Tender Relationship Specialty Start Date End Date None, Provider PCP - General 10/19/14 03/09/19 Anthony Gomez MD PCP - General 03/10/19 [address] [place] [address] documented as of this encounter
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
--- OUTSIDE RECORDS SUMMARY | 2021-11-10 11:31 | XMS_ITS | Encounter Summary ---
:1980 Author Organization [facility] Address [address] [place] [address] Care Team Providers Name Role Phone None, Provider Primary Care Provider Unavailable Anthony Gomez MD Primary Care Provider Encounter Details Date Type Department Care Team Description 10/19/2018 Historical Results [facility] - Janina Fitzgerald, Only [facility] Lab - [place] [address] [place] [address] [facility], [address] [place] [address] Social History Tobacco Use Types [...] Procedure Name Priority Date/Time Associated Comments Diagnosis URINALYSIS/COMPLETE - Routine 10/19/2018 9:[address] [facility] EDT procedure are i n the results section. COMPLETE BLOOD COUNT Routine 10/19/2018 9:29 Resu lts for this WITH DIFFERENTIAL EDT procedure are in (AUTO) the results section. TYPE AND SCREEN Routine 10/19/2018 9:29 Results f or this EDT procedure are i n the results section. documented in this encounter Results (ABNORMAL) COMPLETE BLOOD COUNT WITH DIFFERENTIAL (AUTO) (10/19/2018 9:29 EDT) Pathologist Sig nature ABSOLUTE NEUTROPHIL 6.3 2.2 - 8.85 [facility] COUN - [facility] 10e3/uL CENTER LAB BASO # - [facility] 0.02 0.01 - 0.11 [facility] 10e/uL [place] [facility] BASO % - [facility] 0 0 - 2 % [facility] EOS # - [facility] 0.10 0.03 - 0.61 [facility] 10e3/ul [place] [facility] EOS % - [facility] 1 0 - 5 % [facility] GRAN % - [facility] 76.1 40 - 80 % [facility] HEMATOCRIT - [facility] 33.6 (L) 34.9 - 44.4 % [facility] HEMOGLOBIN - [facility] 11.1 (L) 11.6 - 15.2 [facility] g/dl [place] [facility] IG# - [facility] 0.09 0 - 0.7 10e3/uL [facility] IG% - [facility] 1.1 (H) 0 - 0.9 % [facility] LYMPH # - [facility] 1.2 1.09 - 3.3 [facility] 10e3/ul [place] [facility] LYMPH% - [facility] 14.6 (L) 20 - 40 % [facility] MEAN CORPUSCULAR HGB 29.8 26.7 - 33.3 pg [facility] ME D - [facility] CENTER LAB MEAN CORPUSCULAR HGB 33.0 32.1 - 35.9 [facility] CONC - [facility] g/dL [place] [facility] MEAN CELL VOLUME - 90.3 81 - 98 fl [facility] CENTER LAB MONO # - [facility] 0.6 0.1 - 0.8 [facility] 10e3/uL [place] [facility] MONO% - [facility] 6.8 0 - 12 % [facility] PLATELET COUNT 218 141 - 377 [facility] 10e3/ul CENTER LAB RED BLOOD COUNT - 3.72 (L) 3.86 - 5.04 [facility] 10e3/ul [place] [facility] RED CELL DISTRI WIDTH 15.6 <14.7 % [facility] LAB WHITE BLOOD COUNT - 8.3 4.0 - 12.4 [facility] 10e3/ul [place] [facility] Specimen Narrative [facility] - 019 10:19 EDT Does PT Have a Latex Allergy? NO Performing Organization Address City/State/ZIP Code Phon e Number [facility] [address] [place] [address] [facility] URINALYSIS/COMPLETE - [facility] (10/19/2018 9:29 EDT) URINE APPEARANCE - Clear CLEAR [facility] URINE BACTERIA - MANY [facility] URINE BILIRUBIN - Negative NEGATIVE [facility] DIPSTICK [facility] URINE BLOOD - [facility] Negative NEG [facility] URINE COLOR - [facility] Yellow YELLOW [facility] URINE GLUCOSE - Negative NEGATIVE [facility] URINE KETONE - [facility] Negative NEGATIVE [facility] URINE LEUK ESTERASE Trace NEG [facility] URINE NITRITE - Negative NEG [facility] DIPSTICK [facility] LAB URINE PH - [facility] 6.5 4.0 - 8.0 [facility] URINE PROTEIN - Negative NEG [facility] DIPSTICK [facility] LAB URINE RBC - [facility] 3-6 rbc/hpf [facility] URCULTIF+? - [facility] Contaminated [facility] Comment: [facility] Specimen contaminated. Please recollect a clean catch sample if a culture is indicated. URINE SPECIFIC <=1.005 1.001 - 1.035 [facility] GRAVITY - [facility] LAB URINE SQUAMOUS MANY NEG #/hpf [facility] CELLS [facility] LAB URINE TRANSITIONAL RARE #/hpf [facility] CELLS [facility] LAB URINE UROBILINOGEN 0.2 0.2 - 1.0 [facility] - DIPSTICK [facility] LAB URINE WBC - [facility] 20-30 NEG wbc/hpf [facility] Specimen Narrative [facility] - 019 11:00 EDT Does PT Have a Latex Allergy? NO Performing Organization Address City/[facility]/ZIP Code Phon e Number [facility] [address] [place] [address] [facility] TYPE AND SCREEN (10/19/2018 9:29 EDT) Pathologist Sig nature BLOOD TYPE - [facility] O Positive [facility] Antibody Screen NEGATIVE [facility] Specimen Expires: 10/22/18 @ 2359 [facility] Specimen Narrative [facility] - 019 9:28 EDT Does PT Have a Latex Allergy? NO IS THIS A PREOPERATIVE PATIENT? Y IF YES, DATE OF SURGERY: 10/20/18 Performing Organization Address City/[facility] Code Phon e Number [facility] [address] [place] [address] [facility] documented in this encounter Visit Diagnoses Not on filedocumented in this encounter Care Teams Ladder Operator Relationship Specialty Start Date End Date None, Provider PCP - General 10/19/14 03/09/19 Anthony Gomez MD PCP - General 03/10/19 [address] [place], [place] [id number] documented as of this encounter
--- OUTSIDE RECORDS SUMMARY | 2021-11-10 11:31 | XMS_ITS | Encounter Summary ---
:1980 Author Organization Address [address] [place] [address] Care Team Providers Name Role Phone None, Provider Primary Care Provider Unavailable Anthony Gomez MD Primary Care Provider Encounter Details Date Type Department Care Team Description 04/07/2018 Historical Results [facility] - Nancy Graves, Only [facility] Lab - [place] MATERIAL CREW SUPERVISOR [address] [place] [address] [facility], [address] [place] [phone] Social History Tobacco Use Types Packs/Day Years [...] Procedure Name Priority Date/Time Associated Comments Diagnosis HIV 1/2 AB, P24 AG - Routine 04/07/2018 12:26 Res ults for this [facility] EDT procedure are i n the results section. RAPID PLASMA REAGIN Routine 04/07/2018 12:26 Resu lts for this (RPR) WITH REFLEX, S EDT procedu re are in the results section. TYPE AND SCREEN Routine 04/07/2018 12:26 Results for this EDT procedure are i n the results section. ONE HOUR PC - [facility] Routine 04/07/2018 12:25 Resul ts for this EDT procedure are i n the results section. COMPLETE BLOOD COUNT Routine 04/07/2018 12:25 Res ults for this WITH DIFFERENTIAL EDT procedure are in (AUTO) the results section. RUBELLA IGG ANTIBODY Routine 04/07/2018 12:25 Res ults for this EDT procedure are i n the results section. HEPATITIS B SURFACE Routine 04/07/2018 12:25 Resu lts for this ANTIGEN EDT procedure are i n the results section. VARICELLA IGG Routine 04/07/2018 12:25 Results fo r this ANTIBODY EDT procedure are i n the results section. documented in this encounter Results HIV 1/2 AB, P24 AG - [facility] (04/07/2018 12:26 EDT) HIV 1/2 AB, P24 Negative NEGAT [facility] Comment: MED CENTER LAB ?? Fourth generation assay performed on the Siemens Legal Riveraur. If acute HIV-1 infection is suspected in a high risk patient, submit plasma specimen for HIV-1 RNA quantification test. ?? Test Performed by: THE [address] [address] Specimen Narrative [facility] - 018 15:00 EDT Does PT Have a Latex Allergy? NO Performing Organization Address City/[facility] Code Phon e Number [facility] [address] [place], [place] [id number] [place] [address] LAB RAPID PLASMA REAGIN (RPR) WITH REFLEX, S (04/07/2018 12:26 EDT) Pathologist Sig nature APID PLASMA REAGIN - Nonreactive NEG [facility] CENTER LAB Specimen Narrative [facility] - 018 9:41 EDT Does PT Have a Latex Allergy? NO Performing Organization Address City/[facility] Code Phon e Number [facility] [address] LAB TYPE AND SCREEN (04/07/2018 12:26 EDT) [facility] BLOOD TYPE [facility] O Positive [facility] Antibody Screen NEGATIVE [facility] Specimen Expires: 04/10/18 2359 [facility] Comment: [facility] PATIENT'S RESPONSES INDICATE A HISTORY OF SURGERY, TRANSFUSION OR WITHIN THE LAST 3 MONTHS. FOR BLOOD PRODUCTS, THIS SPECIMEN WILL OUTDATE 72 HOUR S FROM THE TIME IT WAS COLLECTED. ??ANY BLOOD PRODUCTS ORDERE D AFTER 72 HOURS MUST BE WORKED UP ON A NEW SPECIMEN. Specimen Narrative [facility] - 11:25 EDT Does PT Have a Latex Allergy? NO IS THIS A PREOPERATIVE PATIENT? N Performing Organization Address City/[facility] Code Phon e Number [facility] [address] LAB ONE HOUR [facility] (04/07/2018 12:25 EDT) [facility] ONE HOUR PC - 127 88 - 139 [facility] Comment: mg/dL [facility] ACOG RECOMMENDED GUIDELINES Greater than or equal to ??140 mg/dL suspect gestation al diabetes. ?? Recommend confirmation with 3 hr GTT Specimen Narrative [facility] - 14:17 EDT Does PT Have a Latex Allergy? NO Performing Organization Address City/[facility] Code Phon e Number [facility] [address] LAB RUBELLA IGG ANTIBODY (04/07/2018 12:25 EDT) [facility] RUBELLA IGG Positive [facility] ANTIBODY [facility] Comment: [facility] Expected value: Positive The presence of Rubella IgG suggest immunity against r ubella Specimen Narrative [facility] - 018 14:51 EDT Does PT Have a Latex Allergy? NO Performing Organization Address [facility] Code Phon e Number [facility] [address] LAB HEPATITIS B SURFACE ANTIGEN (04/07/2018 12:25 EDT) Hep B Surface Ag Negative [facility] Comment: [facility] Expected Values: ??Negative. The results of this assay can be falsely lowered due t o the consumption of Biotin. Specimen Narrative [facility] - 018 14:49 EDT Does PT Have a Latex Allergy? NO Enter/Edit CPT and ICD codes? N Performing Organization Address [facility] Phon e Number [facility] [address] [place] [address] LAB VARICELLA IGG ANTIBODY (04/07/2018 12:25 EDT) Varicella IgG Ab PositiveComment: Negative [facility] Presumed immune to [facility] Varicella infection. Specimen Narrative [facility] - 018 22:50 EDT Does PT Have a Latex Allergy? NO Performing Organization Address [facility] Phon e Number [facility] [address] [place] [address] LAB COMPLETE BLOOD COUNT WITH DIFFERENTIAL (AUTO) (04/07/2018 12:25 EDT) Pathologist Sig nature ABSOLUTE NEUTROPHIL 6.45 1.7 - 7.0 [facility] COUN - [facility] 10e3/ul [facility] BASO # - [facility] 0.03 0.0 - 0.3 [facility] 10e3/uL [facility] BASO % - [facility] 0 0 - 2 % [facility] EOS # - [facility] 0.15 0.05 - 0.5 [facility] 10e3/uL [facility] EOS % - [facility] 2 0 - 5 % [facility] GRAN % - [facility] 71 40 - 80 % [facility] HEMATOCRIT - [facility] 38.0 34.0 - 47.0 % [facility] HEMOGLOBIN - [facility] 12.5 11.2 - 15.7 g/dl [facility] IG# - [facility] 0.02 0 - 0.07 10e3/uL [facility] IG% - [facility] 0.2 0 - 0.9 % [facility] LYMPH # - [facility] 1.84 0.9 - 2.9 [facility] 10e3/uL [facility] LYMPH% - [facility] 20 20 - 40 % [facility] MEAN CORPUSCULAR HGB - 28.6 26 - 34 pg [facility] D [facility] MEAN CORPUSCULAR HGB 32.9 31 - 36 g/dL [facility] CONC - [facility] CENTER LAB MEAN CELL VOLUME - 87.0 77 - 100 fl [facility] LAB MONO # - [facility] 0.54 0.3 - 0.9 [facility] 10e3/uL [facility] MONO% - [facility] 6 0 - 12 % [facility] PLATELET COUNT 265 150 - 400 [facility] 10e3/ul [facility] RED BLOOD COUNT - [facility] 4.37 3.8 - 5.2 [facility] D 10e6/ul [facility] RED CELL DISTRI WIDTH 13.7 11.8 - 15.6 % [facility] D - [facility] CENTER LAB WHITE BLOOD COUNT - 9.0 3.5 - 10.5 [facility] 10e3/ul [facility] Specimen Narrative [facility] - 018 13:53 EDT Does PT Have a Latex Allergy? NO Performing Organization Address City/State/ZIP Code Phon e Number [facility] [address] [place] [address] [facility] documented in this encounter Visit Diagnoses Not on filedocumented in this encounter Care Teams Senior Estimator Relationship Specialty Start Date End Date None, Provider PCP - General 10/19/14 03/09/19 Anthony Gomez MD PCP - General 03/10/19 [address] [place] [address] documented as of this encounter
--- OUTSIDE RECORDS SUMMARY | 2021-11-10 11:31 | XMS_ITS | Encounter Summary ---
:1980 Author Organization [facility] Address [address] [place] [address] Care Team Providers Name Role Phone Anthony Gomez MD Primary Care Provider Encounter Details Date Type Department Care Team Description 03/11/2019 Hospital Encounter [facility] Jean Pressley, Endoscopy Outpatient MD [address] [facility] [address] [place], [place] [phone] [place] [address] [facility] [address] [place] [phone] (Wo rk) Social History Tobacco Use Types [...] Sign Reading Time Taken Comments Blood Pressure 127/88 03/11/2019 1320 EDT Pulse - - Temperature 36.3 ??C (97.3 ??F) 03/11/2019 1320 EDT Respiratory Rate 16 03/11/2019 1320 EDT Oxygen Saturation 98% 03/11/2019 1320 EDT Inhaled Oxygen Concentration - - Weight [...] making decisions? documented as of this encounter Discharge Diagnoses Diagnosis K22.0 Achalasia of cardia-K22.0[ICD-10-C M] documented in this encounter Medications at Time [...] Code Departure Means Destination Home or Self Correction documented in this encounter Procedure Notes Jean Pressley MD - 03/11/2019 1422 EDTProcedure(s): ESOPHAGEAL MANOMETRY Esophageal manometry performed: achalasia, type II. See Scans for full report. Jean Pressley MD documented in this encounter Plan of Treatment Not on filedocumented as of this encounter Procedures Procedure Name Priority Date/Time Associated Diagnosis Comme nts ENDOSCOPY REPORTS - 03/13/2019 7:03 EDT R esults for this SCANNED procedure are i n the results section. documented in this encounter Results ENDOSCOPY REPORTS - SCANNED (03/13/2019 7:03 EDT) Specimen Narrative This result has an attachment that is no t available. documented in this encounter Visit Diagnoses Not on filedocumented in this encounter Care Teams Faith Doctor Relationship Specialty Start Date End Date Anthony Gomez MD PCP - General 03/10/19 [address] [place] [address] documented as of this encounter
--- OUTSIDE RECORDS SUMMARY | 2021-11-10 11:31 | XMS_ITS | Encounter Summary ---
:1980 Author Organization [facility] Address [address] [place] [address] Care Team Providers Name Role Phone None, Provider Primary Care Provider Unavailable Anthony Gomez MD Primary Care Provider Encounter Details Date Type Department Care Team Description 04/26/2016 Historical Results Only [facility] - Ramona Bacon, [facility] Lab - [place] [address] Social History Tobacco Use Types [...] Associated Diagnosis Comme nts BETA-HCG QUANT(WITH Routine 04/26/2016 10:23 Resu lts for this DILUT) - [facility] EST procedure are in the results section. documented in this encounter Results BETA-HCG QUANT(WITH DILUT) - [facility] (04/26/2016 10:23 EST) BETA-HCG 1,555 mIU/mL [facility] QUANTITATIVE Comment: MED CENTER LAB [...] mIU/mL 2-3 months: ?10,000-100,000 mIU/mL Specimen Narrative [facility] - 016 11:36 EST Does PT Have a Latex Allergy? NO Enter/Edit CPT and ICD codes? N Performing Organization Address City/State/ZIP Code Phon e Number [facility] [address] [place] [address] [facility] documented in this encounter Visit Diagnoses Not on filedocumented in this encounter Care Teams Battery Tester Relationship Specialty Start Date End Date None, Provider PCP - General 10/19/14 03/09/19 Anthony Gomez MD PCP - General 03/10/19 [address] [place], [place] [id number] documented as of this encounter
--- OUTSIDE RECORDS SUMMARY | 2021-11-10 11:31 | XMS_ITS | Encounter Summary ---
:1980 Author Organization [facility] Address [address] [place] [address] Care Team Providers Name Role Phone None, Provider Primary Care Provider Unavailable Anthony Gomez MD Primary Care Provider Encounter Details Date Type Department Care Team Description 08/04/2018 Historical Results Only [facility] - Ramona Bacon, [facility] Lab - [place] MD Zachary Adan [place], [place] [id number] Social History Tobacco Use Types Packs/Day Years [...] Name Priority Date/Time Associated Diagnosis Comme nts [facility] Routine 08/04/2018 12:02 Resul ts for this EST procedure are i n the results section. HEMOGLOBIN - CV Routine 08/04/2018 12:02 Result s for this EST procedure are i n the results section. documented in this encounter Results [facility] (08/04/2018 12:02 EST) [facility] - 106 88 - 139 [facility] Comment: mg/dL [facility] ACOG RECOMMENDED GUIDELINES Greater than or equal to ??140 mg/dL suspect gestation al diabetes. ?? Recommend confirmation with 3 hr GTT Specimen Narrative [facility] - 019 12:36 EST Does PT Have a Latex Allergy? NO Performing Organization Address [facility] Phon e Number [facility] [address] [place], [place] [id number] [place] [address] LAB (ABNORMAL) HEMOGLOBIN - [facility] (08/04/2018 12:02 EST) Pathologist Sig nature HEMOGLOBIN [facility] 11.4 (L) 11.6 - 15.2 g/dl [facility] Specimen Narrative [facility] - 019 12:26 EST Does PT Have a Latex Allergy? NO Performing Organization Address City/[facility] Phon e Number [facility] [address] [place] [address] [facility] documented in this encounter Visit Diagnoses Not on filedocumented in this encounter Care Teams Insurance Coder Relationship Specialty Start Date End Date None, Provider PCP - General 10/19/14 03/09/19 Anthony Gomez MD PCP - General 03/10/19 [address] [place], [place] [phone] documented as of this encounter
--- OUTSIDE RECORDS SUMMARY | 2021-11-10 11:31 | XMS_ITS | Encounter Summary ---
:1980 Author Organization [facility] Address [address] [place] [address] Care Team Providers Name Role Phone None, Provider Primary Care Provider Unavailable Anthony Gomez MD Primary Care Provider Encounter Details Date Type Department Care Team Description 04/20/2016 Historical Results [facility] - Ana Rosa Christian MD Only [facility] Lab [place] [address] [facility] [address] [facility] [address] [place] [address] [place], [place] [phone] [id number] Social History Tobacco Use Types Packs/Day [...] Associated Diagnosis Comme nts BETA-HCG QUANT(WITH Routine 04/20/2016 9:43 EDT R esults for this DILUT) - [facility] procedure are in the results section. documented in this encounter Results BETA-HCG QUANT(WITH DILUT) - [facility] (04/20/2016 9:43 EDT) BETA-HCG 1,496 mIU/mL [facility] Comment: [facility] LAB ? [...] mIU/mL 2-3 months: ?10,000-100,000 mIU/mL Specimen Narrative [facility] - 016 10:44 EDT Does PT Have a Latex Allergy? YES Enter/Edit CPT and ICD codes? N Performing Organization Address City/State/ZIP Code Phon e Number [facility] [address] [place] [address] [facility] documented in this encounter Visit Diagnoses Not on filedocumented in this encounter Care Teams Import/Export Agent Relationship Specialty Start Date End Date None, Provider PCP - General 10/19/14 03/09/19 Anthony Gomez MD PCP - General 03/10/19 [address] [place], [place] [phone] documented as of this encounter
== END 2021-11-10 11:28 | disposition home or self-care (01) ==
LOC: NCHCN 11:27
PROVIDERS: PCP Internal Medicine; Visit Provider Family Medicine
DX: D22.4 Melanocytic nevi of scalp and neck (principal)
CPT/HCPCS: 88142; 88305

== ENCOUNTER 2021-11-21 13:43 | Day surgery (SDC) | payer BC, SELFPAY ==
[2021-11-21] VITALS (8 sets, daily range): BP systolic 118–166; BP diastolic 75–98; PULSE 70–85; RESP 11–21; TEMP 36.2–37; O2SAT 98–100; BMI 27.8
[2021-11-21 14:01] LABS: Source Nasal/Nares
[2021-11-21] MEDS: Lactated Ringers 1,000 ML 80 ML IV (14:16)
[2021-11-21] MEDS: Celecoxib 200 MG CAP PO (14:30)
[2021-11-21] MEDS: Acetaminophen 500 MG TAB 1000 MG PO (14:30)
[2021-11-21] MEDS: Gabapentin 300 MG CAP 600 MG PO (14:30)
--- NOTE | 2021-11-21 14:39 | ANES.PREOP_ITS ---
General Info Date of Service Date Performed: 11/21/21 Height: 5 ft 6 in Weight: 78.4 kg Body Mass Index (BMI): 27.8 Surgical Procedure: Operation Date: 11/21/21 14:40 Proposed Procedure Side Surgeon p Exam Under Anesthesia and Hemorrhoid Excision Tiffanie Casillas MD Meds Allergies and Home Medications Allergies Allergy/AdvReac Type Severity Reaction Status Date / Time Penicillins Allergy Severe Anaphylaxis Verified 11/21/21 14:08 Sulfa (Sulfonamide Allergy Unknown Verified 11/21/21 14:08 Antibiotics) flu vax Allergy Severe Anaphylaxis Uncoded 11/21/21 14:08 Home Medication Medication Instructions Recorded metformin 500 mg tablet 1,000 mg PO BID 01/20/19 ibuprofen 600 mg tablet 600 mg PO Q6H PRN pain #20 tabs 04/06/19 meloxicam 15 mg tablet (Mobic) 15 mg PO DAILY #30 tabs 01/13/20 cyclobenzaprine 10 mg tablet 10 mg PO HS 11/21/21 hydromorphone 2 mg tablet 2 mg PO Q4H 11/21/21 lidocaine 5 % topical ointment 1 applic mucous membrane BID 11/21/21 ondansetron 8 mg disintegrating 8 mg PO Q12H 11/21/21 tablet spironolactone 100 mg tablet 100 mg PO DAILY 11/21/21 Current Visit Medications: Current Medications Generic Name Dose Route Start Last Admin Trade Name Freq PRN Reason Stop Dose Admin Acetaminophen 1,000 mg 11/21/21 06:00 11/21/21 14:30 Acetaminophen 500 Mg Tab PO 12/21/21 23:59 1,000 mg PREOP JUAN F Administration Celecoxib 200 mg 11/21/21 06:00 11/21/21 14:30 Celecoxib 200 Mg Cap PO 12/21/21 23:59 200 mg PREOP JUAN F Administration Gabapentin 600 mg 11/21/21 06:00 11/21/21 14:30 Gabapentin 300 Mg Cap PO 12/21/21 23:59 600 mg PREOP JUAN F Administration Ringer's Solution 1,000 mls @ 80 mls/hr 11/21/21 06:00 11/21/21 14:16 IV 12/21/21 23:59 80 mls/hr INFUSION JUAN F Administration Metronidazole 750 mg/ Device 150 mls @ 150 mls/hr 11/21/21 13:45 11/21/21 14:27 IV 11/21/21 18:00 150 mls/hr PREOP JUAN F Administration IV Miscellaneous Supplies 1 each 11/21/21 06:00 Iv Access IV 12/21/21 23:59 DIRECTED JUAN F Sodium Chloride 0 ml 11/21/21 06:00 Normal Saline Flush 10 Ml Syr IV 12/21/21 23:59 PRN PRN Sodium Chloride 0 ml 11/21/21 06:00 Normal Saline 10 Ml Vial IJ 12/21/21 23:59 DIRECTED PRN Sterile Water 0 ml 11/21/21 06:00 Water,Injection,Sterile 10 Ml Vial IJ 12/21/21 23:59 DIRECTED PRN PFSH Active Problems Active Problems: Problem Status Onset Code Dysphagia R13.10 H/O esophagogastroduodenoscopy ~02/02/19 Z98.890 Right carpal tunnel syndrome G56.01 Carpal tunnel syndrome, bilateral upper limbs G56.03 Achalasia K22.0 Left foot pain M79.672 Thrombosed external hemorrhoid K64.5 Medical History Medical History Dysphagia barium swallow at [facility] on 01/21/19 severe narrowing of the distal esophagus. Referred to us by Dr Gomez, [facility], symptoms minimally better with pantoprazole. Obesity Polycystic ovary syndrome Medical History Comments:: pt. stated that she didn't do well with anesthesia gas Surgical History Surgical History (Updated 11/21/21 @ 14:06 by Margarita Beltre, ITZ) History of carpal tunnel release History of section Tobacco Smoking/Tobacco Use Status: Never Alcohol Alcohol Intake: never Substance Use Substance use: Never Substance use type: does not use Vital Signs and Lab Results Vital Signs Most Recent Vital Signs in EMR: Most Recent Vital Signs Temp Pulse Resp BP Pulse Ox 37.0 C 85 18 118/92 H 99 11/21/21 14:20 11/21/21 14:20 11/21/21 14:20 11/21/21 14:20 11/21/21 14:20 Lab Results Blood Type / Crossmatch: No Data to Display Complete Blood Count: No Data to Display Complete Metabolic Panel: No Data to Display Liver Function Panel: No Data to Display Coagulation Panel: No Data to Display Cardiac Panel: No Data to Display Arterial Blood Gas: No Data to Display Venous Blood Gas: No Data to Display Pancreas Panel: No Data to Display Thyroid Panel: No Data to Display Infectious Disease: Coronavirus (COVID-19)(PCR) Negative (Negative) 11/21/21 13:55 Coronavirus 2019 Source Nasal/Nares 11/21/21 13:55 Blood Cultures: No Data to Display Toxicology Panel: No Data to Display Panel: No Data to Display Anesthesia Assessment and Plan Anesthesia History Personal History: Other Family History: No Family History of Anesthesia Complications Exercise Tolerance Exercise Tolerance: Metabolic Equivalents>4 Pertinent Negatives Pertinent Negatives: No Symptoms of GERD, No Major Cardiovascular Symptoms or Complaints, No Major Pulmonary Symptoms or Complaints and No History of CVA/TIA Cardiac & Pulmonary Exam Cardiac Exam: Normal S1/S2 Heart Sounds Pulmonary Exam: Clear Bilateral Breath Sounds Implantable Cardiac Device Does patient have a Pacemaker or an ICD?: No Airway Exam Known Difficult Airway: No Mallampati Class: 1 Mouth Opening: Normal (> 3cm) Thyromental Distance: Greater than 3 cm Neck Range of Motion: Full ROM Neck Circumference: Normal Teeth Condition: Normal Dentition ASA Classification ASA Score: ASA 2 Emergency Case?: Yes NPO Status NPO Status: NPO Clears >2 hours, Solids >8 hours Status Status: Negative HCG Anesthesia Plan Resuscitation Status: Full Code Anesthesia Technique: General Anesthesia Airway Planned: Endotracheal Tube Monitors Used: Standard Monitors
[2021-11-21 14:57] LABS: COVID-19 PCR Negative (Negative)
[2021-11-21] MEDS: Gelatin SPONGE 12-7 MM PKT 1 EACH TP (15:35)
[2021-11-21] MEDS: Lidocaine 2% Jelly 11 ML SYR (15:35)
[2021-11-21] MEDS: Bupivacaine LIPOSOME/PF 133 MG/10 ML VIAL IJ (15:35)
[2021-11-21] MEDS: Bupivacaine 0.25% Pres-Free 10 ML VIAL (15:35)
--- NOTE | 2021-11-21 15:51 | W.PM.DSUDISC ---
Discharge Plan Disposition Patient Disposition: HOME Condition: Stable Discharge Details Reason For Visit: THROMBOSED HEMORRHOIDS Attending Provider: Tiffanie Casillas Primary Care Provider: Sriram Lofton Home Meds and New Rx's Prescriptions: Continued lidocaine 5 % ointment 1 applic mucous membrane BID ondansetron 8 mg tablet,disintegrating 8 mg PO Q12H hydromorphone 2 mg tablet 2 mg PO Q4H spironolactone 100 mg tablet 100 mg PO DAILY meloxicam [Mobic] 15 mg tablet 15 mg PO DAILY Qty: 30 2RF Rx Instructions: take one tablet every am metformin 500 mg tablet 1,000 mg PO BID ibuprofen 600 mg tablet 600 mg PO Q6H PRN (Reason: pain) Qty: 20 0RF cyclobenzaprine 10 mg Tablet 10 mg PO HS Discharge Instructions Instructions: Hemorrhoidectomy (DC) Additional Instructions: Activity at Home after surgery: 1. Take it easy and rest as much as you can. Diet, Nutrition, & wound healin. Avoid alcohol until you are no longer taking Hydromorphone. 2. Make sure to eat plenty of lean protein (meat, fish, eggs, cottage cheese, beans) 3. Eat a variety of fruits and vegetables. Eat plenty of high fiber foods to avoid constipation. 4. Drink plenty of liquids to stay hydrated and avoid constipation Pain Medications: 1. Tylenol 650mg every 6 hours as needed and Ibuprofen 600 mg every 6 hours as needed. You may alternate between the 2 medications every 3 hours 2. If a narcotic has been prescribed take as directed only for breakthrough pain For Constipation: 1. Take Milk of Magnesia or MiraLax as needed for constipation Other: 1. You may shower daily. 2. Sitz baths every 6 hours, or more often as needed for pain 3. Antibiotics have been called in for 7 days to avoid infection 4. There is some foam in the rectum to help with bleeding. This will either desolve or come out the first time you have a BM. 5. Use a donut pillow if you need to sit Please call our office if you develop: 1. Fevers >101.5 2. Nausea or Vomiting 3. Worsening pain 4. bleeding that is more then 1/2 cup If after hours please call the Hospital at and ask to speak to the on-call surgeon Referrals: Tiffanie Casillas MD [ [facility] STAFF PHYSICIAN] - (Please call my office tomorrow for an appointment on saturday the ) Activity:: take it easy for the next week Shower/Bathe:: 24 hours Diet:: As Tolerated Discharge Orders Discharge Orders: Discharge Order (Routine); Ordered 11/21/21 Ordered By: Tiffanie Casillas
--- NOTE | 2021-11-21 16:08 | W.PM.OP ---
Date of service: 11/21/21 Time of Service: 15:00 Operative Note Operative Note DATE OF PROCEDURE: 11/21/21 PRE-OP DIAGNOSIS: External thrombosed hemorrhoid POST-OP DIAGNOSIS: same (and external hemorrhoids) PROCEDURE: Exam under anesthesia and hemorrhoidectomy SURGEON: Tiffanie Casillas ANESTHESIA TYPE: General LMA/ETT Refer to Anesthesia Record ESTIMATED BLOOD LOSS: 3 PATHOLOGY: none sent COMPLICATIONS: None Patient was transported to: PACU Implants: None Indications: Sugey is a pleasant 40 year old female with a large thrombosed/necrotic hemorrhoid which need excision.? Called the OR and spoke to Pierce Victor and I will be going to the OR as soon as the COVID test is done.? The procedure was explained and patient wished to proceed Risks, benefits and complications were reviwed. Complications include but are not limited to bleeding, infection, injury to the rectal sphincter, stool incontinence.? Questions were entertained and answered to her satisfaction and she wished to proceed.? No guarantees were given or implied. Exam under anesthesia and external hemorrhoid excision. Findings: Large thrombosed/necrotic external hemorrhoid at the 12 o'clock position and a large external hemorrhoid at the 6 o'clock position. Smaller external hemorrhoids at 3 and 9 o'clock Procedure Description: After informed consent was obtained the patient was taken to the Operating room. While on the gurney the patient was placed under general anesthesia and intubated. Once intubated the patient was placed in a prone position on the operating room table. Inspection was done of her shoulders, wrists, knees and breasts to make sure there was not too much pressure on these areas. Her buttocks were using tape on either side. Next a time out was done and the patients name, , allergies to medications, antibiotic given, procedure to be done were reviewed. Fire risk was assessed. Next the buttocks and ailyn-anal area were prepped with iodine and draped in a standard fashion. Next exparel mixed 50/50 with bupivocaine was injected circumferentially around the rectum. The large thrombosed external hemorrhoid was resected using the ligasure. small amounts of clots were removed. The skin edges were then re-approximated using 3-0 chronic interruted sutures. Next an anoscope was inserted and no internal hemorrhoids were identified. There was another grade 3 external hemorrhoid at the 6 o'clock position. This hemorrhoid was also resected with the ligasure. The skin edges were re-approximated using 3-0 chronic suture. No fistulas were identified. Surgifoam was placed into the rectum with Lidocaine jelly. The skin was cleaned and dried. An ABD was placed and secured with mesh panties. The patient was then placed on a gurney in a supine position and taken back to PACU. The patient tolerated the procedure well and there were no complications.
--- NOTE | 2021-11-21 16:41 | W.ANESPOSTOP ---
Postoperative Evaluation Date, Time and Location Date Performed: 11/21/21 Time Performed: 16:41 Patient Location: Day Surgery Unit Vital Signs Most Recent Imported Vital Signs: Most Recent Vital Signs Temp Pulse Resp BP Pulse Ox 36.6 C 70 16 142/98 H 100 11/21/21 16:15 11/21/21 16:15 11/21/21 16:15 11/21/21 16:15 11/21/21 16:15 Pain Score Most Recent Pain Score: Most Recent Pain Score Pain Level 8 11/21/21 16:15 Assessment Mental Status: Awake (Alert & Oriented to Patient Baseline) Airway and Respiratory Function: Patent airway with normal (patient baseline) respiratory exam Cardiovascular Function: Hemodynamically Stable Hydration Status: Adequately Hydrated Nausea & Vomiting: No Nausea or Vomiting Pain: Pain is Moderate or Severe Postoperative Pain Management: Pain being addressed with medication Peripheral Nerve Block: Patient did not receive a nerve block
[2021-11-21] MEDS: HYDROmorphone 2 MG/ML VIAL IVP (16:55)
[2021-11-21] MEDS: HYDROmorphone 2 MG TAB PO (17:03)
== END 2021-11-21 18:25 | disposition home or self-care (01) ==
PROVIDERS: PCP Family Medicine; Visit Provider Surgery
PROC: (CPT 46040; principal; 2021-11-21 14:30)
DX: K64.5 Perianal venous thrombosis (principal); E28.2 Polycystic ovarian syndrome; R13.10 Dysphagia, unspecified
CPT/HCPCS: 46320; 81025; 87635; J1100; J1885; J2405; J2704

== ENCOUNTER 2022-03-21 06:13 | Day surgery (SDC) | payer BC, SELFPAY ==
[2022-03-21 06:32] VITALS: BP 133/88; PULSE 87; RESP 16; TEMP 36.5; O2SAT 100
[2022-03-21] MEDS: Lactated Ringers 1,000 ML 80 ML IV (06:58)
--- NOTE | 2022-03-21 07:01 | ANES.PREOP_ITS ---
General Info Date of Service Date Performed: 03/21/22 Height: 5 ft 6 in Weight: 74.8 kg Body Mass Index (BMI): 26.6 Surgical Procedure: Operation Date: 03/21/22 07:40 Proposed Procedure Side Surgeon p Wrist ECTR Left Scott Stanley MD Meds Allergies and Home Medications Allergies Allergy/AdvReac Type Severity Reaction Status Date / Time Penicillins Allergy Severe Anaphylaxis Verified 03/21/22 06:39 Sulfa (Sulfonamide Allergy Unknown Verified 03/21/22 06:39 Antibiotics) flu vax Allergy Severe Anaphylaxis Uncoded 03/21/22 06:39 Home Medication Medication Instructions Recorded metformin 500 mg tablet 1,000 mg PO BID 01/20/19 ibuprofen 600 mg tablet 600 mg PO Q6H PRN pain #20 tabs 04/06/19 cyclobenzaprine 10 mg tablet 10 mg PO HS 11/21/21 lidocaine 5 % topical ointment 1 applic mucous membrane BID 11/21/21 ondansetron 8 mg disintegrating 8 mg PO Q12H 11/21/21 tablet spironolactone 100 mg tablet 100 mg PO DAILY 11/21/21 etonogestrel 68 mg subdermal 1 implant subdermal ONCE 11/23/21 implant (Nexplanon) diphenoxylate-atropine 2.5 1 tab PO TID PRN #90 tabs 02/21/22 mg-0.025 mg tablet Current Visit Medications: Current Medications Generic Name Dose Route Start Last Admin Trade Name Freq PRN Reason Stop Dose Admin Ringer's Solution 1,000 mls @ 80 mls/hr 03/21/22 06:00 03/21/22 06:58 IV 04/19/22 23:59 80 mls/hr INFUSION JUAN F Administration Clindamycin Phosphate/Dextrose 900 mg in 50 mls @ 50 mls/hr 03/21/22 06:00 Cleocin In D5w IVPB 03/21/22 18:00 PREOP JUAN F IV Miscellaneous Supplies 1 each 03/21/22 06:00 Iv Access IV 04/19/22 23:59 DIRECTED JUAN F Sodium Chloride 0 ml 03/21/22 06:00 Normal Saline Flush 10 Ml Syr IV 04/19/22 23:59 PRN PRN Sodium Chloride 0 ml 03/21/22 06:00 Normal Saline 10 Ml Vial IJ 04/19/22 23:59 DIRECTED PRN Sterile Water 0 ml 03/21/22 06:00 Water,Injection,Sterile 10 Ml Vial IJ 04/19/22 23:59 DIRECTED PRN PFSH Active Problems Active Problems: Problem Status Onset Code Left carpal tunnel syndrome G56.02 Dysphagia R13.10 H/O esophagogastroduodenoscopy ~02/02/19 Z98.890 Right carpal tunnel syndrome G56.01 Carpal tunnel syndrome, bilateral upper limbs G56.03 Achalasia K22.0 Left foot pain M79.672 Thrombosed external hemorrhoid K64.5 Medical History Medical History Carpal tunnel syndrome Chronic diarrhea Dysphagia barium swallow at [facility] on 01/21/19 severe narrowing of the distal esophagus. Referred to us by Dr Gomez, [facility], symptoms minimally better with pantoprazole. Fibromyalgia Hemorrhoid thrombosis Polycystic ovary syndrome Situational anxiety Skin lesion Medical History Comments:: pt. stated that she didn't do well with anesthesia gas Surgical History Surgical History History of carpal tunnel release History of section Tobacco Smoking/Tobacco Use Status: Never Alcohol Alcohol Intake: never Substance Use Substance use: Never Substance use type: does not use Vital Signs and Lab Results Vital Signs Most Recent Vital Signs in EMR: Most Recent Vital Signs Temp Pulse Resp BP Pulse Ox 36.5 C 87 16 133/88 100 03/21/22 06:32 03/21/22 06:32 03/21/22 06:32 03/21/22 06:32 03/21/22 06:32 Point of Care Results Point of Care Results: POC- Test(urine) Negative 03/21/22 06:45 Lab Results Blood Type / Crossmatch: No Data to Display Complete Blood Count: No Data to Display Complete Metabolic Panel: No Data to Display Liver Function Panel: No Data to Display Coagulation Panel: No Data to Display Cardiac Panel: No Data to Display Arterial Blood Gas: No Data to Display Venous Blood Gas: No Data to Display Pancreas Panel: No Data to Display Thyroid Panel: 2 No Data to Display Infectious Disease: No Data to Display Blood Cultures: No Data to Display Toxicology Panel: No Data to Display Panel: No Data to Display Anesthesia Assessment and Plan Anesthesia History Personal History: No History of Anesthesia Complications Family History: No Family History of Anesthesia Complications Exercise Tolerance Exercise Tolerance: Metabolic Equivalents>4 Pertinent Negatives Pertinent Negatives: No Symptoms of GERD, No Major Cardiovascular Symptoms or Complaints, No Major Pulmonary Symptoms or Complaints and No History of CVA/TIA Cardiac & Pulmonary Exam Cardiac Exam: Normal S1/S2 Heart Sounds Pulmonary Exam: Clear Bilateral Breath Sounds Implantable Cardiac Device Does patient have a Pacemaker or an ICD?: No Airway Exam Known Difficult Airway: No Mallampati Class: 1 Mouth Opening: Normal (> 3cm) Thyromental Distance: Greater than 3 cm Neck Range of Motion: Full ROM Neck Circumference: Normal Teeth Condition: Normal Dentition ASA Classification ASA Score: ASA 2 Emergency Case?: No NPO Status NPO Status: NPO Clears >2 hours, Solids >8 hours Status Status: Negative HCG Anesthesia Plan Resuscitation Status: Full Code Anesthesia Technique: General Anesthesia Airway Planned: Natural Airway Monitors Used: Standard Monitors
[2022-03-21 07:03] VITALS: BMI 26.6
--- NOTE | 2022-03-21 07:05 | HPE_ITS ---
Assessment and Plan Assessment and plan (1) Left carpal tunnel syndrome: Status: Acute Assessment and plan: Sugey is a 42-year-old female who has carpal tunnel syndrome of the left side. She has had successful carpal tunnel in the right side inferior to the left. Please see previous office note for complete detailed history. After a review of clinical history, exam findings, and nerve conduction testing, carpal tunnel syndrome is the most reasonable diagnosis. We discussed possible treatment options to include nighttime splinting, anti-inflammatories, carpal tunnel injections, and eventually surgery. Due to the persistence of symptoms a nd their daily limitations with normal function, I offered a carpal tunnel release. I discussed the technical details of carpal tunnel release and that I perform an endoscopic release, but would make a larger, open, incision if necessary for visualization. I discussed the risks of the procedure to include, but not limited to, bleeding, infection, palmar pain, stiffness, damage to nerves, damage to vessels, damage to tendons, weakness, recurrence, and incomplete release. Given these risks, Sugey desires to proceed. History of Present Illness History of Present Illness Chief Complaint: Left Carpal Tunnel Syndrome Narrative: Sugey is a 42-year-old who has known carpal tunnel syndrome of both wrist. She is status post right endoscopic carpal tunnel release about 3 years ago with excellent results. I saw her in the office with a diagnosis of carpal tunnel syndrome and she elects to proceed with carpal tunnel release today. She denies any changes to her medical history. No chest pain or shortness of breath. Review of Systems All systems reviewed & are unremarkable except as noted in HPI and below PFSH All Active Problems Left carpal tunnel syndrome (Acute) Dysphagia (Acute) H/O esophagogastroduodenoscopy (Chronic ~02/02/19) Right carpal tunnel syndrome (Acute) Carpal tunnel syndrome, bilateral upper limbs (Acute) Achalasia (Acute) Left foot pain (Acute) Thrombosed external hemorrhoid (Acute) Medical History Carpal tunnel syndrome Chronic diarrhea Dysphagia barium swallow at [facility] on 01/21/19 severe narrowing of the distal esophagus. Referred to us by Dr Gomez, [facility], symptoms minimally better with pantoprazole. Fibromyalgia Hemorrhoid thrombosis Polycystic ovary syndrome Situational anxiety Skin lesion Surgical History History of carpal tunnel release History of section Social History Smoking/Tobacco Use Status: Never Smoking risk assessment performed?: Yes Alcohol Intake: never Drug use: Never Substance use type: does not use Household members: spouse Housing: house Number of Children: 2 Current gender identity: female Duration: 45-60 minutes/day Frequency: 5-6 times per week Seatbelt use: always Do you feel safe at home: Yes Do you feel safe in your relationship?: Yes Meds Allergies and Home Medications Allergies Allergy/AdvReac Type Severity Reaction Status Date / Time Penicillins Allergy Severe Anaphylaxis Verified 03/21/22 06:39 Sulfa (Sulfonamide Allergy Unknown Verified 03/21/22 06:39 Antibiotics) flu vax Allergy Severe Anaphylaxis Uncoded 03/21/22 06:39 Home Medications Medication Instructions Recorded Confirmed Type metformin 500 mg tablet 1,000 mg PO BID 01/20/19 03/21/22 History ibuprofen 600 mg tablet 600 mg PO Q6H PRN pain #20 tabs 04/06/19 03/21/22 Rx cyclobenzaprine 10 mg tablet 10 mg PO HS 11/21/21 03/21/22 History lidocaine 5 % topical ointment 1 applic mucous membrane BID 11/21/21 03/21/22 History ondansetron 8 mg disintegrating 8 mg PO Q12H 11/21/21 03/21/22 History tablet spironolactone 100 mg tablet 100 mg PO DAILY 11/21/21 03/21/22 History etonogestrel 68 mg subdermal 1 implant subdermal ONCE 11/23/21 03/21/22 History implant (Nexplanon) diphenoxylate-atropine 2.5 1 tab PO TID PRN #90 tabs 02/21/22 03/21/22 Rx mg-0.025 mg tablet Exam Resp Effort & Inspection: normal respiratory effort Auscultation: clear to auscultation bilaterally Cardio Rate: regular rate Rhythm: regular rhythm Results Last Vital Signs Temp 36.5 C 03/21/22 06:32 Pulse 87 03/21/22 06:32 Resp 16 03/21/22 06:32 BP 133/88 03/21/22 06:32 Pulse Ox 100 03/21/22 06:32
--- NOTE | 2022-03-21 07:16 | PDOC.DSDIS_ITS ---
Discharge Plan Disposition Patient Disposition: HOME Condition: Good Discharge Details Reason For Visit: L ECTR Attending Provider: Scott Stanley Primary Care Provider: Sriram Lofton Home Meds and New Rx's Prescriptions: New acetaminophen 500 mg tablet 1,000 mg PO TID Qty: 90 0RF ibuprofen 600 mg tablet 600 mg PO TID PRN (Reason: pain) Qty: 90 0RF Continued lidocaine 5 % ointment 1 applic mucous membrane BID ondansetron 8 mg tablet,disintegrating 8 mg PO Q12H spironolactone 100 mg tablet 100 mg PO DAILY metformin 500 mg tablet 1,000 mg PO BID Nexplanon 68 mg implant 1 implant subdermal ONCE Rx Instructions: as a single dose diphenoxylate-atropine 2.5-0.025 mg tablet 1 tab PO TID PRNQty: 90 3RF cyclobenzaprine 10 mg Tablet 10 mg PO HS Discontinued ibuprofen 600 mg tablet 600 mg PO Q6H PRN (Reason: pain) Qty: 20 0RF Discharge Instructions Stand Alone Forms: Lizeth Kunz Tunnel Release Referrals: Scott Stanley MD [ [facility] STAFF PHYSICIAN] - Activity:: Activity as Tolerated Remove Dressings/Wound Care:: 48 hours Shower/Bathe:: 48 hours Diet:: As Tolerated Discharge Orders Discharge Orders: Discharge Order (Routine); Ordered 03/21/22 Ordered By: Andrea Cole DS: Diagnosis Discharge Diagnosis (1) Left carpal tunnel syndrome: Status: Acute
[2022-03-21] MEDS: CLINDAMYCIN 900 MG/50 ML BAG 50 MG IVPB (07:29)
[2022-03-21] MEDS: Lidocaine 1% Multi-Dose W/EPI 1/100,000 50 ML VIAL (07:35)
--- NOTE | 2022-03-21 07:53 | W.ANESPOSTOP ---
Postoperative Evaluation Date, Time and Location Date Performed: 03/21/22 Time Performed: 07:53 Patient Location: Day Surgery Unit Vital Signs Most Recent Imported Vital Signs: Most Recent Vital Signs Temp Pulse Resp BP Pulse Ox 36.5 C 87 16 133/88 100 03/21/22 06:32 03/21/22 06:32 03/21/22 06:32 03/21/22 06:32 03/21/22 06:32 Most Recent Manually Entered Vital Signs: Adult Blood Pressure: 123/89 Heart Rate: 92 Respirations: 12 Oxygen Saturation (%): 99 Temperature (C): 36.3 C Pain Score (0-10 Scale): 0 Pain Score Most Recent Pain Score: Most Recent Pain Score Pain Level 0 03/21/22 06:32 Assessment Mental Status: Awake (Alert & Oriented to Patient Baseline) Airway and Respiratory Function: Patent airway with normal (patient baseline) respiratory exam Cardiovascular Function: Hemodynamically Stable Hydration Status: Adequately Hydrated Nausea & Vomiting: No Nausea or Vomiting Pain: Pt. Denies Any Pain Peripheral Nerve Block: Patient did not receive a nerve block
[2022-03-21 07:54] VITALS: BP 123/89; PULSE 90; PULSE 92; RESP 12; RESP 16; TEMP 36; TEMPC 36.3; O2SAT 99
[2022-03-21 08:27] VITALS: BP 118/94; PULSE 76; RESP 16; TEMP 36.2; O2SAT 100
--- NOTE | 2022-03-22 06:04 | W.PM.OP ---
Date of service: 03/22/22 Time of Service: 07:40 Operative Note Operative Note DATE OF PROCEDURE: 03/22/22 PRE-OP DIAGNOSIS: Left Carpal Tunnel Syndrome POST-OP DIAGNOSIS: same PROCEDURE: Left Endoscopic Carpal Tunnel Release SURGEON: Scott Stanley ANESTHESIA TYPE: General:No Airway Refer to Anesthesia Record ESTIMATED BLOOD LOSS: 0 PATHOLOGY: none sent TOURNIQUET TIME: 5 COMPLICATIONS: None Patient was transported to: same day Patient's condition: stable Indications: I have seen Sugey in clinic for symptoms of carpal tunnel syndrome. She has had a previous carpal tunnel release on the right side a few years ago. The numbness, tingling, and pain limited function. Clinical exam findings with nerve conduction tests confirmed the diagnosis of carpal tunnel syndrome. Nonoperative measures such as bracing, time, activity modifications had been tried but disability and pain persisted. I discussed carpal tunnel release with the patient. I reviewed the risks of the procedure to include, but not limited to, bleeding, infection, pain, stiffness, incomplete release, damage to nerves or vessels, persistent numbness, recurrence. Despite these risks, the patient elected to proceed. Findings: There was tightened carpal tunnel. This was dilated and released successfully with the endoscopic with increased space within the tunnel. The antebrachial fascia was released proximally freeing the median nerve at the wrist. Procedure Description: Sugey was greeted in the preoperative holding area where the correct side was identified and marked. The consent was reviewed with the patient and signed. The history and physical was updated. All questions were answered. She was taken back to the operating room. The patient was placed into the supine position on the operating room table with the left arm on an arm board. A nonsterile tourniquet was placed high onto the arm. All bony prominences were well padded. Prophylactic antibiotics in the form of Cefazolin were administered. The left arm was then prepped with Chloraprep and draped in a standard fashion with stockinette and extremity drape. A timeout to confirm correct identity, side and site, procedure, allergies, anesthesia, and medical concerns was performed. The surgical site was marked in the volar wrist creases in line with the radial border of the fourth ray. This area was anesthetized with approximately 6cc of 1% Lidocaine. The limb was then exsanguinated with an Esmarch. The skin was incised with a 15 blade, approximately 1cm. The skin only was cut and the deeper tissue was dissected bluntly with a tenotomy scissor, avoiding passing nerve and venous structures. The fascia was penetrated and opened bluntly. A two-prong skin hook was placed under this proximal fascial edge. A series of hamate finders were used to identify and dilate the carpal tunnel. Synovial elevator was used to free synovial attachments to the underside of the transverse carpal ligament. My thumb was kept in the palm to taylor the distal extent of the carpal tunnel and correctly position the hand. The Microaire endoscope was inserted without difficulty and without resistance. Excellent visualization showed horizontally running fibers of the transverse carpal ligament (TCL). The distal extent of the TCL was visualized and the end of the scope palpated with the thumb. The blade was elevated and withdrawn from distal to proximal. The TCL was split into two flaps. The endoscope was reinserted to confirm complete release and any remnant ligament was incised. The scope was withdrawn and the proximal aspect of the carpal tunnel was grossly inspected and appeared release with the median nerve visible. The antebrachial fascia at the level of the wrist was then freed from the overlying skin and then the underlying median nerve with blunt dissection. This was transected longitudinally for about 3cm proximal to the wrist incision. The wound was then irrigated with easy flow of irrigant distally and proximally. The incision was closed with a single 4-0 Nylon suture. The wound was dressed with Xeroform, Gauze, Kerlix and Clinton. The tourniquet was deflated with the initial dressing and held with some pressure. Blood flow returned easily to all digits with capillary refill less than 2 seconds. The patient tolerated the procedure well and was returned to the Same Day Surgery area in a stable condition suffering no known complication.
== END 2022-03-21 08:45 | disposition home or self-care (01) ==
PROVIDERS: PCP Family Medicine; Visit Provider Student in an Organized Health Care Education/Training Program
PROC: 01N54ZZ Release Median Nerve, Percutaneous Endoscopic Approach (ICD-10-PCS; CPT 29848; principal; 2022-03-21 07:30)
DX: G56.02 Carpal tunnel syndrome, left upper limb (principal)
CPT/HCPCS: 29848; 81025; J1100; J1885; J2250; J2405

== ENCOUNTER 2022-04-03 03:43 | Outpatient (CLI) | payer BC, SELFPAY ==
[2022-04-03 10:09] LABS: TSH (W/Ref FT4) 2.15 uIU/mL (0.36-3.74)
== END 2022-04-03 03:44 | disposition home or self-care (01) ==
LOC: LBO 03:43
PROVIDERS: PCP Family Medicine; Visit Provider Obstetrics & Gynecology
DX: N93.8 Other specified abnormal uterine and vaginal bleeding (principal)
CPT/HCPCS: 36415; 84146; 84443

== ENCOUNTER 2022-04-05 14:46 | Outpatient (REF) | payer BC, SELFPAY ==
--- NOTE | 2022-04-05 13:40 | PAPFT_PTH ---
PATIENT: Sugey Rodney I LOC: [facility] U#:[id number] AGE/SX: 42/F ROOM: RE04/05/[address]: Senia Layne DO : 1980 BED: DIS: 04/05/2022 SPEC #: [id number] RECD: 04/05/22 18:10 STATUS: JOSIAS REQ #: [id number] SARINA: 04/05/22 13:[address]: Senia Layne DEPT: [facility] Cytology RECD BY: Jyoti Cardenas ENTERED: 04/05/22 18:10 SP TYPE: PAPFT OTHR DR: Sriram Lofton Tissues: 1 - CX/ENDOCX FOR PAP SMEARS Procedures: PAP THIN PREP/UVM Screening Comments: [id number] (UNSATISFACTORY FOR EVALUATION)
--- NOTE | 2022-04-05 13:40 | ENDOMET_PTH ---
PATIENT: Sugey Rodney I LOC: [facility] U#:[id number] AGE/SX: 42/F ROOM: RE04/05/[address]: Senia Layne DO : 1980 BED: DIS: 04/05/2022 SPEC #: [id number] RECD: 04/05/22 18:05 STATUS: JOSIAS REQ #: [id number] SARINA: 04/05/22 13:[address]: Senia Layne DEPT: Surgical Specimen RECD BY: Jyoti Cardenas ENTERED: 04/05/22 18:06 SP TYPE: Endomet OTHR DR: Sriram Lofton Tissues: 1 - ENDOMETRIUM BX/CURRETTE Procedures: GROSS AND MICRO LEVEL 4 Comments: [id number]
== END 2022-04-05 14:47 | disposition home or self-care (01) ==
LOC: LBN 14:46
PROVIDERS: PCP Family Medicine; Visit Provider Obstetrics & Gynecology
DX: R87.615 Unsatisfactory cytologic smear of cervix (principal); Z11.51 Encounter for screening for human papillomavirus (HPV); N93.9 Abnormal uterine and vaginal bleeding, unspecified
CPT/HCPCS: 88142; 88305

== ENCOUNTER 2022-04-19 13:36 | Outpatient (REF) | payer BC, SELFPAY ==
--- NOTE | 2022-04-19 13:20 | PAPFT_PTH ---
PATIENT: Sugey Rodney I LOC: [facility] U#:[id number] AGE/SX: 42/F ROOM: RE04/19/[address]: Senia Layne DO : 1980 BED: DIS: 04/19/2022 SPEC #: [id number] RECD: 04/19/22 18:25 STATUS: JOSIAS REQ #: [id number] SARINA: 04/19/22 13:[address]: Senia Layne DEPT: [facility] Cytology RECD BY: Jyoti Cardenas ENTERED: 04/19/22 18:25 SP TYPE: PAPFT OTHR DR: Sriram Lofton Tissues: 1 - CX/ENDOCX FOR PAP SMEARS Procedures: PAP THIN PREP/UVM Screening HPV DNA PROBE Comments: [id number]
== END 2022-04-19 13:37 | disposition home or self-care (01) ==
LOC: LBN 13:36
PROVIDERS: PCP Family Medicine; Visit Provider Obstetrics & Gynecology
DX: Z12.4 Encounter for screening for malignant neoplasm of cervix (principal); Z11.51 Encounter for screening for human papillomavirus (HPV)
CPT/HCPCS: 88142; 87624

== ENCOUNTER 2022-05-14 02:42 | Outpatient (CLI) | payer BC, SELFPAY ==
[2022-05-14 09:08] LABS: Abs Immature Grans 0.03 10^3/uL (0.0-0.06); Absolute Basophil Count 0.07 10^3/uL (0.0-0.2); Absolute Eosinophil Count 0.27 10^3/uL (0.0-0.7); Absolute Lymphocyte Count 2.26 10^3/uL (1.2-3.4); Absolute Monocyte Count 0.55 10^3/uL (0.1-0.8); Absolute Neutrophil Count 5.58 10^3/uL (1.2-6.7); Basophils % 0.8; Eosinophils % 3.1; HCT 42.6 % (36.0-46.0); HGB 14.4 g/dL (11.2-15.7); Immature Grans % 0.3; Lymphocytes % 25.8; MCH 30.4 pg (27.0-33.0); MCHC 33.8 % (32.0-36.0); MCV 90 fL (80-95); MPV 9.6 fL (8.0-11.0); Monocytes % 6.3; Neutrophils % 63.7; Platelet Count 337 10^3/uL (130-400); RBC 4.74 10^6/uL (3.93-5.22); RDW 12.4 % (11.7-14.6); RDW-SD 41.1 fL; WBC 8.76 10^3/uL (4.4-10.8)
== END 2022-05-14 02:43 | disposition home or self-care (01) ==
LOC: LBO 02:42
PROVIDERS: PCP Family Medicine; Visit Provider Obstetrics & Gynecology
DX: D25.9 Leiomyoma of uterus, unspecified (principal); N93.8 Other specified abnormal uterine and vaginal bleeding; N94.19 Other specified dyspareunia; Z01.818 Encounter for other preprocedural examination; Z01.812 Encounter for preprocedural laboratory examination
CPT/HCPCS: 36415; 86850; 86900; 86901; 85025

== ENCOUNTER 2022-05-14 03:04 | Outpatient (CLI) | payer BC, SELFPAY ==
[2022-05-14 08:45] LABS: Source Nasal/Nares
[2022-05-14 14:53] LABS: COVID-19 PCR Negative (Negative)
== END 2022-05-14 03:05 | disposition home or self-care (01) ==
LOC: LBO 03:04
PROVIDERS: PCP Family Medicine; Visit Provider Obstetrics & Gynecology
DX: Z20.822 Contact with and (suspected) exposure to COVID-19 (principal); Z01.818 Encounter for other preprocedural examination
CPT/HCPCS: 87635

== ENCOUNTER 2022-05-16 06:11 | Inpatient (IN) | payer BC, SELFPAY ==
[2022-05-16] VITALS (17 sets, daily range): BP systolic 83–119; BP diastolic 47–81; PULSE 63–100; RESP 12–18; TEMP 36.3–36.7; O2SAT 95–100; BMI 27.8
[2022-05-16 06:21] LABS: Source Nasal/Nares
[2022-05-16 06:49] LABS: COVID-19 PCR Negative (Negative)
[2022-05-16] MEDS: Lactated Ringers 1,000 ML 125 ML IV ×4 (07:02→19:07)
--- NOTE | 2022-05-16 07:07 | W.ANESPRE ---
General Info Date of Service Date Performed: 05/16/22 Height: 5 ft 6 in Weight: 78.1 kg Body Mass Index (BMI): 27.8 Surgical Procedure: Operation Date: 05/16/22 07:40 Proposed Procedure Side Surgeon p Hysterectomy Vaginal Laparoscopic Assist,Bi-Lat Salpingectomy,Cystoscopy,Possible KSENIA Layne DO Meds Allergies and Home Medications Allergies Allergy/AdvReac Type Severity Reaction Status Date / Time Penicillins Allergy Severe Anaphylaxis Verified 05/16/22 06:31 Sulfa (Sulfonamide Allergy Severe Anaphylaxis Verified 05/16/22 06:31 Antibiotics) flu vax Allergy Severe Anaphylaxis Uncoded 05/16/22 06:31 Home Medication Medication Instructions Recorded metformin 500 mg tablet 1,000 mg PO BID 01/20/19 cyclobenzaprine 10 mg tablet 10 mg PO HS 11/21/21 lidocaine 5 % topical ointment 1 applic mucous membrane BID PRN 11/21/21 spironolactone 100 mg tablet 100 mg PO DAILY 11/21/21 etonogestrel 68 mg subdermal 1 implant subdermal ONCE 11/23/21 implant (Nexplanon) diphenoxylate-atropine 2.5 1 tab PO TID PRN #90 tabs 02/21/22 mg-0.025 mg tablet acetaminophen 500 mg tablet 1,000 mg PO TID #90 tabs 03/21/22 ibuprofen 600 mg tablet 600 mg PO TID PRN pain #90 tabs 03/21/22 cyanocobalamin (vitamin B-12) 250 250 mcg PO BID 03/27/22 mcg tablet (Vitamin B-12) ferrous sulfate 325 mg (65 mg 325 mg PO DAILY 03/27/22 iron) tablet,delayed release pyridoxine (vitamin B6) 50 mg 50 mg PO BID 03/27/22 capsule (Vitamin B-6) Current Visit Medications: Current Medications Generic Name Dose Route Start Last Admin Trade Name Freq PRN Reason Stop Dose Admin Ringer's Solution 1,000 mls @ 125 mls/hr 05/16/22 06:00 05/16/22 07:02 IV 06/14/22 23:59 125 mls/hr INFUSION JUAN F Administration Clindamycin Phosphate/Dextrose 600 mg in 50 mls @ 100 mls/hr 05/16/22 06:00 Cleocin In D5w IVPB 05/16/22 18:00 PREOP JUAN F IV Miscellaneous Supplies 1 each 05/16/22 06:00 Iv Access IV 06/14/22 23:59 DIRECTED JUAN F Sodium Chloride 0 ml 05/16/22 06:00 Normal Saline Flush 10 Ml Syr IV 06/14/22 23:59 PRN PRN Sodium Chloride 0 ml 05/16/22 06:00 Normal Saline 10 Ml Vial IJ 06/14/22 23:59 DIRECTED PRN Sterile Water 0 ml 05/16/22 06:00 Water,Injection,Sterile 10 Ml Vial IJ 06/14/22 23:59 DIRECTED PRN PFSH Active Problems Active Problems: Problem Status Onset Code Dysmenorrhea N94.6 Uterine fibroid D25.9 Abnormal uterine bleeding N93.9 DUB (dysfunctional uterine bleeding) N93.8 Dysphagia R13.10 H/O esophagogastroduodenoscopy ~02/02/19 Z98.890 Right carpal tunnel syndrome G56.01 Achalasia K22.0 Left foot pain M79.672 Thrombosed external hemorrhoid K64.5 Medical History Medical History Carpal tunnel syndrome Chronic diarrhea Dysphagia barium swallow at [facility] on 01/21/19 severe narrowing of the distal esophagus. Referred to us by Dr Gomez, [facility], symptoms minimally better with pantoprazole. Fibromyalgia Hemorrhoid thrombosis Polycystic ovary syndrome Situational anxiety Skin lesion Medical History Comments:: pt. stated that she didn't do well with anesthesia gas (horrible chills and pain) Surgical History Surgical History History of carpal tunnel release (03/21/22) History of carpal tunnel surgery of left wrist History of section Tobacco Smoking/Tobacco Use Status: Never Alcohol Alcohol Intake: never Substance Use Substance use: Never Substance use type: does not use Vital Signs and Lab Results Vital Signs Most Recent Vital Signs in EMR: Most Recent Vital Signs Temp Pulse Resp BP Pulse Ox 36.4 C L 86 18 119/81 100 05/16/22 06:21 05/16/22 06:21 05/16/22 06:21 05/16/22 06:21 05/16/22 06:21 Point of Care Results Point of Care Results: POC- Test(urine) Negative 05/16/22 06:46 Lab Results Blood Type / Crossmatch: Patient ABO/Rh O Positive 05/14/22 Antibody Screen NEGATIVE 05/14/22 Complete Blood Count: White Blood Count 8.76 10^3/uL (4.4-10.8) 05/14/22 08:49 Red Blood Count 4.74 10^6/uL (3.93-5.22) 05/14/22 08:49 Hemoglobin 14.4 g/dL (11.2-15.7) 05/14/22 08:49 Hematocrit 42.6 % (36.0-46.0) 05/14/22 08:49 Platelet Count 337 10^3/uL (130-400) 05/14/22 08:49 Complete Metabolic Panel: No Data to Display Liver Function Panel: No Data to Display Coagulation Panel: No Data to Display Cardiac Panel: No Data to Display Arterial Blood Gas: No Data to Display Venous Blood Gas: No Data to Display Pancreas Panel: No Data to Display Thyroid Panel: No Data to Display Infectious Disease: Coronavirus (COVID-19)(PCR) Negative (Negative) 05/16/22 06:14 Coronavirus 2019 Source Nasal/Nares 05/16/22 06:14 Blood Cultures: No Data to Display Toxicology Panel: No Data to Display Panel: No Data to Display Anesthesia Assessment and Plan Anesthesia History Personal History: Other Family History: No Family History of Anesthesia Complications Exercise Tolerance Exercise Tolerance: Metabolic Equivalents>4 Pertinent Negatives Pertinent Negatives: No Symptoms of GERD Cardiac & Pulmonary Exam Cardiac Exam: Normal S1/S2 Heart Sounds Pulmonary Exam: Clear Bilateral Breath Sounds Implantable Cardiac Device Does patient have a Pacemaker or an ICD?: No Airway Exam Known Difficult Airway: No Mallampati Class: 1 Mouth Opening: Normal (> 3cm) Thyromental Distance: Greater than 3 cm Neck Range of Motion: Full ROM Neck Circumference: Normal Teeth Condition: Normal Dentition ASA Classification ASA Score: ASA 2 Emergency Case?: No NPO Status NPO Status: NPO Clears >2 hours, Solids >8 hours Status Status: Negative HCG Anesthesia Plan Resuscitation Status: Full Code Anesthesia Technique: General Anesthesia Airway Planned: Endotracheal Tube Pain Management: Intrathecal Analgesia Monitors Used: Standard Monitors
[2022-05-16] MEDS: CLINDAMYCIN 600 MG/50 ML BAG 100 MG IVPB (07:47)
--- NOTE | 2022-05-16 09:11 | UTER_PTH ---
PATIENT: Sugey Rodney I LOC: [facility] U#:[id number] AGE/SX: 42/F ROOM: OBS.306 RE05/16/[address]: Senia Layne DO : 1980 BED: A DIS: 05/17/2022 SPEC #: [id number] RECD: 05/16/22 12:44 STATUS: SOUT REQ #: [id number] SARINA: 05/16/22 09:[address]: Senia Layne DEPT: Surgical Specimen RECD BY: Jyoti Cardenas ENTERED: 05/16/22 12:45 SP TYPE: UTER OTHR DR: Sriram Lofton Tissues: 1 - UTERUS W OR W/O OVARIES(NOT TUMOR/PROLAPSE) Procedures: GROSS AND MICRO LEVEL 5 Comments: [id number]
[2022-05-16] MEDS: Bupivacaine 0.5% Pres-Free 30 ML VIAL (09:15)
--- NOTE | 2022-05-16 10:46 | ROE_ITS ---
Date of service: 05/16/22 Time of Service: 10:46 Operative Note Operative Note DATE OF PROCEDURE: 05/16/22 PRE-OP DIAGNOSIS: Abnormal uterine bleeding, uterine fibroid POST-OP DIAGNOSIS: same Extensive adhesions of the omentum to the anterior abdominal wall PROCEDURE: 1. Extensive lysis of adhesions 2. Laparoscopically assisted vaginal hysterectomy with bilateral salpingectomy 3. Cystoscopy SURGEON: Senia Layne ASSISTING SURGEON: Sirena Read ANESTHESIA TYPE: Local By Surgeon, General LMA/ETT and Spinal Refer to Anesthesia Record ESTIMATED BLOOD LOSS: 150 PATHOLOGY: other (Bilateral fallopian tubes, uterus, cervix) COMPLICATIONS: None Patient was transported to: PACU Patient's condition: stable Indications: Ongoing abnormal uterine bleeding, and uterine fibroid. Findings: Extensive adhesions of the omentum to the anterior abdominal wall, normal- appearing ovaries bilaterally, bilateral paratubal cysts of the fallopian tubes, bulky, globular fibroid uterus. No other intra-abdominal or pelvic pathology noted Procedure Description: Patient was taken the operating suite with an IV running after full informed consent was obtained. She was placed in the seated position and spinal anes thesia administered for postoperative pain management. She is then placed in the dorsal supine position and general anesthesia administered via endotracheal intubation. At this point she was placed in the modified dorsal lithotomy position in yellowfin stirrups and prepped and draped in usual sterile fashion. Exam under anesthesia revealed a uterus that was proximately 6 to 8 weeks size and mobile. At this point Melendrez catheter was inserted for continuous bladder drainage. A weighted speculum was placed into the posterior vaginal vault and a single-tooth tenaculum used to grasp the anterior lip of the cervix. A ZUMI uterine manipulator was placed for intra operative uterine manipulation. At this point speculum and tenaculum were removed and attention was turned to the abdomen. At this point the umbilical area was infiltrated with half percent Marcaine and a vertical umbilical incision was made. The anterior abdominal wall was elevated with sharp towel clips and a varies needle inserted directly into the abdomen. With a CO2 gas and maximum pressure of 15 mmHg a pneumoperitoneum was created. At this point under direct visualization a 12 mm sleeve and trocar were placed into the abdomen. There is noted to be adhesions of the anterior abdominal wall with the omentum. The right and left lower quadrant sites were clear of any adhesive disease and under direct visualization after infiltration with half percent Marcaine a right and left lower quadrant trocar site were placed with a 5 mm trocar. At this point a 5 mm scope was used in the right lower quadrant to identify the extent of the adhesions and with cautery the omental adhesions were meticulously dissected away from the anterior abdominal wall. With this portion of the procedure completed the uterus was elevated and attention turned to the right fallopian tube which was cautery transected and removed from the abdomen. The right round ligament was identified cautery transected and this allowed access to the right broad ligament. The right utero-ovarian ligament was cauterized and transected and at this point the anterior leaf of the broad ligament was elevated to create the left-hand side of the bladder flap. The uterine vessels on the left-hand side were cauterized to decrease the possibility of blood loss. A similar procedure was carried out on the right fallopian tube, followed by the right utero-ovarian ligament, followed by the right round ligament. The anterior leaf of the right round ligament was then elevated and the remainder of the bladder flap was created. With Kitners the bladder was pushed down from the lower uterine segment allowing a good visualization of the lower uterine segment and creation of the bladder flap. A similar cautery procedure was carried out on the right uterine vessels. At this point with all pedicles hemostatic, attention was turned to the vaginal vault. A weighted speculum was placed into the posterior vaginal vault and Anjali clamps were used to grasp the anterior and posterior lips of the cervix. Circumferential incision was made at the cervical vaginal interface with the Bovie cautery. At this point the posterior cul-de-sac was identified and sharply entered. A weighted speculum was placed into the posterior vaginal vault and the right uterosacral cardinal complex was clamped transected and suture-ligated similar procedure was carried out on the left uterosacral cardinal complex. The anterior cul-de-sac was then entered sharply and the remainder of the uterine pedicles were clamped transected and suture-ligated on the right followed by the left. This allowed delivery of the uterus, and cervix through the vaginal vault. There is 1 area at the posterior cul-de-sac and posterior vaginal cuff that was not hemostatic which was oversewn with 0 Vicryl suture. There was also an area at the left uterosacral cardinal complex that was not hemostatic which was also suture-ligated and hemostasis achieved. With good hemostasis noted, the vaginal cuff was closed with 0 Vicryl suture in a running locked fashion. With closure of the cuff, attention was then returned to the abdomen. Abdomen was reinsufflated with CO2 gas and all pedicles inspected and found to be hemostatic. Vaginal cuff was well closed and reapproximated. Both ureters were identified in the posterior cul-de-sac peristalsing appropriately. With low pressure at 4 mmHg, begin vaginal cuff and all pedicles were noted to have hemostasis. CO2 gas was then discontinued and all trochars were removed from the abdomen. The fascial incision was closed using 0 Vicryl suture with a simple interrupted stitch and the skin edge reapproximated with 4-0 undyed Monocryl in a subcuticular fashion. Steri-Strips and sterile dressing were placed. In light of the extensive dissection of the bladder away from the lower uterine segment and proximity of the ureters cystoscopy was performed. Patient received methylene blue to enhance the ureteric jets for better visualization. The entire bladder was then inspected and found to be free of trauma and the right and left ureteric orifices identified with jets of yellow to green tinge urine flowing without difficulty. With assurance that the bladder and ureters were intact and atraumatic the procedure was terminated. She was taken out of the dorsolithotomy position returned to the dorsal supine position and awoke from anesthesia with ease. She was taken the recovery room in stable condition with a Melendrez catheter draining blue-tinged urine. EBL: 150 cc Findings: Extensive adhesions of the omentum to the anterior abdominal wall. Normal-appearing ovaries bilaterally. Bilateral paratubal cysts. 6 to 8 weeks size globular uterus. Atraumatic bladder with appropriately functioning ureteric orifices Complications: None apparent Fluids: Crystalloid per anesthesia Pathology: Bilateral fallopian tubes, uterus, and cervix.
[2022-05-16] MEDS: ePHEDrine 25 MG/5 ML Syringe IVP (11:22)
[2022-05-16] MEDS: Ketorolac 30 MG/ML VIAL 15 MG IVP ×3 (12:05→23:55)
[2022-05-16] MEDS: Normal Saline Flush 10 ML SYR IV ×2 (12:06→17:37)
[2022-05-16] MEDS: Acetaminophen 500 MG TAB PO (13:30)
[2022-05-16] MEDS: oxyCODONE 5 mg/Acetaminophen 325 mg TAB PO ×3 (13:30→23:54)
[2022-05-16] MEDS: diphenhydrAMINE 25 MG CAP PO (14:13)
--- NOTE | 2022-05-16 14:50 | ANES.POST_ITS ---
Postoperative Evaluation Date, Time and Location Date Performed: 05/16/22 Time Performed: 12:16 Patient Location: Obstetrics Vital Signs Most Recent Imported Vital Signs: Most Recent Vital Signs Temp Pulse Resp BP Pulse Ox 36.6 C 69 16 94/59 L 97 05/16/22 14:44 05/16/22 14:44 05/16/22 14:44 05/16/22 14:44 05/16/22 14:44 Pain Score Most Recent Pain Score: Most Recent Pain Score Pain Level 3 05/16/22 14:44 Assessment Mental Status: Awake (Alert & Oriented to Patient Baseline) Airway and Respiratory Function: Patent airway with normal (patient baseline) respiratory exam Cardiovascular Function: Hemodynamically Stable Hydration Status: Adequately Hydrated Nausea & Vomiting: No Nausea or Vomiting Pain: Pain is tolerable per patient Peripheral Nerve Block: Other (Intrathecal narcotic in place. ) Postoperative Comments:: Discussed potential of inadvertent puncture of dura by introducer n eedle/patients shallow space. Discussed PDPH sx and symptoms, course, and treatment options. Patient is aware and is currently not having any symptoms. I've also made the call provider and surgeon aware.
--- NOTE | 2022-05-16 17:15 | W.PM.PROGNOT ---
Date of Service Date of service: 05/16/22 Time of Service: 17:15 Assessment and Plan Assessment and plan (1) Status post laparoscopic assisted vaginal hysterectomy (LAVH): Status: Acute Assessment and plan: Postoperative day 0 status post laparoscopically assisted vaginal hysterectomy with bilateral salpingectomy and extensive lysis of adhesions particularly from the omentum to the anterior abdominal wall. Overall doing well. Vital signs are stable. Has been ambulatory. Mild nausea. Will receive antiemetics. CBC in the morning. Recent ambulation progressively. Advance diet as tolerated. Anticipate discharge tomorrow. Subjective Subjective Interval history since last seen: Patient seen and examined this evening. Overall she is doing well. Her pain is well controlled. She does have some slight nausea. Vital signs are appropriate. Surgery, adhesions, and blood loss were all discussed today. All of her questions were answered. Exam Const General: cooperative, healthy appearing, comfortable and no acute distress Resp Effort & Inspection: normal respiratory effort, no audible wheezes and no cough GI Inspection: normal to inspection and non-distended Skin General skin exam: no rashes or lesions noted Extrem General: normal to inspection and no clubbing, cyanosis or edema Objective Last Vital Signs Temp 97.8 F 05/16/22 14:44 Pulse 78 05/16/22 15:29 Resp 16 05/16/22 15:29 BP 102/64 05/16/22 15:29 Pulse Ox 97 05/16/22 15:29 Laboratory Results - last 24 hr 05/16/22 06:14 COVID-19 Source Nasal/Nares SARS-CoV-2 (PCR) Negative
[2022-05-16] MEDS: Ondansetron 4 MG/2 ML VIAL IVP (17:17)
[2022-05-16] MEDS: Docusate Sodium 100 MG CAP PO (19:31)
[2022-05-17] VITALS: BP 96/60; PULSE 100; TEMP 36.5
[2022-05-17] MEDS: oxyCODONE 5 mg/Acetaminophen 325 mg TAB PO ×2 (02:44→05:54)
[2022-05-17 02:45] VITALS: BP 97/60
[2022-05-17] MEDS: Ketorolac 30 MG/ML VIAL 15 MG IVP (05:56)
[2022-05-17 05:59] VITALS: BP 96/63; PULSE 100; RESP 16; TEMP 36.7
[2022-05-17 07:03] LABS: HCT 37.8 % (36.0-46.0); HGB 12.5 g/dL (11.2-15.7); MCHC 33.1 % (32.0-36.0); MCV 91 fL (80-95); MPV 9.8 fL (8.0-11.0); Platelet Count 328 10^3/uL (130-400); RBC 4.16 10^6/uL (3.93-5.22); RDW 12.4 % (11.7-14.6); RDW-SD 40.8 fL; WBC 18.45 10^3/uL (4.4-10.8)
--- NOTE | 2022-05-17 07:18 | W.PM.PROGNOT ---
Date of Service Date of service: 05/17/22 Time of Service: 07:18 Assessment and Plan Assessment and plan (1) Status post laparoscopic assisted vaginal hysterectomy (LAVH): Status: Acute Assessment and plan: Postoperative day #1 status post laparoscopically assisted vaginal hysterectomy with bilateral salpingectomy. Doing well. Stable hemoglobin. Appropriate vital signs. Adequate urine output. At home today. Subjective Subjective Interval history since last seen: Patient seen and examined this morning. All questions were answered. She has been ambulating. She is tolerating a regular diet and oral pain medication. Postoperative hemoglobin stable at 12.5. Anticipating discharge home today Exam Const General: cooperative, healthy appearing, comfortable and no acute distress Nutritional Appearance: average body habitus Eyes General: appearance normal, both eyes and all related structures Resp Effort & Inspection: normal respiratory effort, no audible wheezes and no cough Cardio Rate: regular rate Rhythm: regular rhythm GI Palpation: soft, not firm and no guarding Skin General skin exam: no rashes or lesions noted Extrem General: normal to inspection and no clubbing, cyanosis or edema Objective Last Vital Signs Temp 98.0 F 05/17/22 05:59 Pulse 100 H 05/17/22 05:59 Resp 16 05/17/22 05:59 BP 96/63 L 05/17/22 05:59 Pulse Ox 98 05/16/22 19:27 Laboratory Results - last 24 hr 05/17/22 06:55 WBC 18.45 H RBC 4.16 Hgb 12.5 Hct 37.8 MCV 91 MCH 30.0 MCHC 33.1 RDW 12.4 Plt Count 328 MPV 9.8
--- NOTE | 2022-05-17 07:26 | W.PM.DS.N ---
Date of service: 05/17/22 Time of Service: 07:27 DS: Diagnosis Discharge Diagnosis (1) Status post laparoscopic assisted vaginal hysterectomy (LAVH): Status: Acute Asessment and Plan: Patient is postoperative day #1 status post laparoscopically assisted vaginal hysterectomy with bilateral salpingectomy and extensive lysis of adhesions for symptomatic uterine fibroids and anemia. She had an uncomplicated intraoperative course along with an uncomplicated postoperative course and was discharged home postoperative day #1 ambulating, tolerating regular diet and oral pain medication with stable vital signs. She will be seen in the office in 2 and 6 weeks. In the interval, she was instructed on no heavy lifting and pelvic rest for a total of 6 weeks. Prescriptions were sent to the pharmacy including ibuprofen, Percocet, and Colace. Discharge Plan Disposition Condition: Good Discharge Details Reason For Visit: [facility] Admit Date/Time: 05/16/22 06:11 Admit Provider: Senia Layne Attending Provider: Senai Layne Primary Care Provider: Sriram Lofton Hospital Course Hospital Course: Patient was admitted on 05/16/2022 for laparoscopically assisted vaginal hysterectomy with bilateral salpingectomy. Her intraoperative and postoperative courses were uncomplicated. She was discharged home postoperative day #1 ambulating, tolerating regular diet and oral pain medication with stable vital signs. Her discharge hemoglobin is stable at 12.5. She will be discharged home on her usual medications, along with Percocet, ibuprofen, and Colace. She will be seen in the office in 2 weeks for postoperative check and Nexplanon removal along with a 6-week postoperative checkup. Home Meds and New Rx's Prescriptions: New oxycodone-acetaminophen [Percocet] 5-325 mg tablet 1 tab PO TID PRNQty: 14 0RF ibuprofen 800 mg tablet 800 mg PO Q8H PRNQty: 60 1RF docusate sodium [Colace] 100 mg capsule 100 mg PO BID Qty: 30 0RF Continued lidocaine 5 % ointment 1 applic mucous membrane BID PRN spironolactone 100 mg tablet 100 mg PO DAILY cyanocobalamin (vitamin B-12) [Vitamin B-12] 250 mcg tablet 250 mcg PO BID Label Comments: 03/26/22- pt unsure of dose Vitamin B-6 50 mg capsule 50 mg PO BID Label Comments: 03/26/22- pt unsure of dose metformin 500 mg tablet 1,000 mg PO BID Nexplanon 68 mg implant 1 implant subdermal ONCE Rx Instructions: as a single dose diphenoxylate-atropine 2.5-0.025 mg tablet 1 tab PO TID PRNQty: 90 3RF cyclobenzaprine 10 mg Tablet 10 mg PO HS acetaminophen 500 mg tablet 1,000 mg PO TID Qty: 90 0RF Discontinued ferrous sulfate 325 mg (65 mg iron) tablet,delayed release (DR/EC) 325 mg PO DAILY ibuprofen 600 mg tablet 600 mg PO TID PRN (Reason: pain) Qty: 90 0RF Discharge Instructions Stand Alone Forms: [employer] SurgeryW/Incision Activity:: Pelvic rest Equipment/Supplies:: No Equipment Needed Diet:: As Tolerated DS: Summary Time Spent with Patient providing and/or coordinating discharge services: Less than 30 minutes Status at Discharge Functional status at discharge: independent ambulation Overall status at discharge: patient is progressing back to baseline Mental Status: mental status grossly normal Speech and Movement: speech and movement normal Mood: congruent mood Affect: normal affect Exam Narrative Exam Narrative: See physical exam from progress note dated 05/17/2022 Psych Mental Status: mental status grossly normal Speech and Movement: speech and movement normal Mood: congruent mood Affect: normal affect DS: Data Vitals/I&O Vitals and I&O: Vital Signs Temperature 98.0 F 05/17/22 05:59 Temperature Source Oral 05/17/22 05:59 Pulse 100 H 05/17/22 05:59 Pulse Rhythm Regular 05/16/22 19:27 Respiratory Rate 16 05/17/22 05:59 Respiratory Effort Non-Labored 05/16/22 19:27 Respiratory Depth Normal 05/16/22 19:27 Respiratory Pattern Normal 05/16/22 19:27 Blood Pressure 96/63 L 05/17/22 05:59 Pulse Oximetry 98 05/16/22 19:27 Respiratory End-tidal CO2 39 05/16/22 11:26 Oxygen Delivery Method Room Air 05/17/22 05:59 Oxygen Flow Rate 0 05/17/22 05:59 Pain Level 6 05/17/22 05:54 Comment 05/16/22 12:15 Intake & Output 05/16/22 05/16/22 05/17/22 11:59 23:59 11:59 Intake Total 975 / 5.833 1090.833 / 2064.833 Output Total 550 / 2050 1500 / 2050 1200 / 1200 Balance 425 / 15.833 -409.167 / 15.833 -1200 / -1200 Weight 172 lb 2.896 oz Intake: IV 975 / 2064.833 1090.833 / 2064.833 Output: Urine 400 / 1900 1500 / 1900 1200 / 1200 Estimated Blood Loss 150 / 150 Other: Urine Color Yellow Green Green Green Urine Appearance Clear Clear Urine Odor None Comment DUE TO METHYLENE BLUE Melendrez in place Emesis Description None Data Completed and Pending Labs on day of discharge: Labs from last 24 hours 05/17/22 06:55 WBC 18.45 H RBC 4.16 Hgb 12.5 Hct 37.8 MCV 91 MCH 30.0 MCHC 33.1 RDW 12.4 Plt Count 328 MPV 9.8 PFSH All Active Problems Status post laparoscopic assisted vaginal hysterectomy (LAVH) (Acute) Status post laparoscopically assisted vaginal hysterectomy with bilateral salpingectomy and extensive lysis of adhesions 05/15/2022 Dysphagia (Acute) H/O esophagogastroduodenoscopy (Chronic ~02/02/19) Right carpal tunnel syndrome (Acute) Achalasia (Acute) Left foot pain (Acute) Thrombosed external hemorrhoid (Acute) Medical History Carpal tunnel syndrome Chronic diarrhea Dysphagia barium swallow at [facility] on 01/21/19 severe narrowing of the distal esophagus. Referred to us by Dr Gomez, [facility], symptoms minimally better with pantoprazole. Fibromyalgia Hemorrhoid thrombosis Polycystic ovary syndrome Situational anxiety Skin lesion Surgical History History of carpal tunnel release (03/21/22) History of carpal tunnel surgery of left wrist History of section Social History Smoking/Tobacco Use Status: Never Smoking risk assessment performed?: Yes Alcohol Intake: never Drug use: Never Substance use type: does not use Household members: spouse Housing: house Number of Children: 2 Current gender identity: female Duration: 45-60 minutes/day Frequency: 5-6 times per week Seatbelt use: always Do you feel safe at home: Yes Do you feel safe in your relationship?: Yes
[2022-05-17 07:30] VITALS: BP 110/69; PULSE 100; RESP 14; TEMP 36.7; O2SAT 98
== END 2022-05-17 08:00 | disposition home or self-care (01) | DRG 743 ==
LOC: PDS 06:11 → OBS 12:04
PROVIDERS: Admitting Provider Obstetrics & Gynecology; PCP Family Medicine; Visit Provider Obstetrics & Gynecology
PROC: 0UT9FZZ Resection of Uterus, Via Natural or Artificial Opening With Percutaneous Endoscopic Assistance (ICD-10-PCS; CPT 58552; principal; 2022-05-16 07:30)
DX: D25.9 Leiomyoma of uterus, unspecified (principal); N94.6 Dysmenorrhea, unspecified; R13.10 Dysphagia, unspecified; K52.9 Noninfective gastroenteritis and colitis, unspecified; M79.7 Fibromyalgia; E28.2 Polycystic ovarian syndrome; N73.6 Female pelvic peritoneal adhesions (postinfective); D64.9 Anemia, unspecified
CPT/HCPCS: 58552; 36415; 85027; 87635; 88307; J1100; J1885; J2250; J2405; J3010

== ENCOUNTER 2022-10-22 15:50 | Outpatient (REF) | payer BC, SELFPAY ==
[2022-10-22 21:35] LABS: Abs Immature Grans 0.03 10^3/uL (0.0-0.06); Absolute Basophil Count 0.08 10^3/uL (0.0-0.2); Absolute Eosinophil Count 0.34 10^3/uL (0.0-0.7); Absolute Monocyte Count 0.51 10^3/uL (0.1-0.8); Absolute Neutrophil Count 6.12 10^3/uL (1.2-6.7); Basophils % 0.8; Eosinophils % 3.5; HCT 42.1 % (36.0-46.0); HGB 14.1 g/dL (11.2-15.7); Immature Grans % 0.3; Lymphocytes % 26.9; MCH 29.1 pg (27.0-33.0); MCHC 33.5 % (32.0-36.0); MCV 87 fL (80-95); MPV 10.7 fL (8.0-11.0); Monocytes % 5.3; Neutrophils % 63.2; Platelet Count 331 10^3/uL (130-400); RBC 4.84 10^6/uL (3.93-5.22); RDW 13.4 % (11.7-14.6); RDW-SD 42.2 fL; WBC 9.68 10^3/uL (4.4-10.8)
[2022-10-22 21:45] LABS: ALT 29 U/L (14-59); AST 23 U/L (15-37); Albumin 4.4 g/dL (3.4-5.0); Alkaline Phosphatase 59 U/L (46-116); BUN 18 mg/dL (7-18); Bilirubin, Total 0.5 mg/dL (0.2-1.0); CREATININE 0.9 mg/dL (0.55-1.02); Calcium 9.5 mg/dL (8.5-10.1); Chloride 102 mmol/L (98-107); Creatine Kinase 169 U/L (26-192); Estimated GFR 82.88 (mL/min/1.73m2); Glucose 84 mg/dL (74-106); Potassium 4.2 mmol/L (3.5-5.1); Sodium 139 mmol/L (136-145); Total Protein 7.4 g/dL (6.4-8.2)
[2022-10-22 21:51] LABS: ESR 6 mm/hr (0-20)
[2022-10-23 17:45] LABS: Rheumatoid Factor <8.6 IU/mL (<12.0)
[2022-10-24 10:10] LABS: Cyclic Citrullinated Peptide <2.5 U/mL (<5.0)
[2022-10-24 15:02] LABS: ANA Interpretation Positive (Negative); ANA Titer Pattern 1:80 Speckled
== END 2022-10-22 15:51 | disposition home or self-care (01) ==
LOC: NCHCN 15:50
PROVIDERS: PCP Family Medicine; Visit Provider Family Medicine
DX: M79.7 Fibromyalgia (principal); K52.9 Noninfective gastroenteritis and colitis, unspecified; E28.2 Polycystic ovarian syndrome
CPT/HCPCS: 80053; 82550; 85652; 86200; 85025; 86038; 86431

== ENCOUNTER → 2023-08-16 00:59 | Outpatient (CLI) | payer MEDICAID, SELFPAY ==
--- NOTE | 2023-08-16 07:43 | DI.CT_ITS ---
Exam(s) CT SINUS WO EXAM: CT SINUS WO CLINICAL HISTORY: Chronic facial pain, purulent rhinorrhea,J32.9. Evaluate for sinusitis. TECHNIQUE: Imaging Protocol: Axial computed tomography images with coronal and sagittal reformatted images were created and reviewed. COMPARISON: No exams were available for comparison FINDINGS: AXIAL IMAGES: Frontal sinuses: Normally aerated. Ethmoid air cells: There is minimal mucosal thickening in the ethmoid air cells bilaterally. No air- fluid levels are seen. Maxillary sinuses: Mild mucosal thickening is seen in the maxillary sinuses bilaterally. There is a small fluid level seen in the left maxillary sinus. Sphenoid sinus: There is a small mucous retention cyst in the right sphenoid sinus. There is minimal mucosal thickening in the left sphenoid sinus. Ostiomeatal complexes: Patent. Osseous nasal septum: Minimal rightward deviation of the nasal septum. Visualized regional soft tissues: No acute findings. Orbits: Unremarkable. Bones: Unremarkable. Mastoid Air Cells: Normally aerated. IMPRESSION: 1. Mild chronic pansinusitis. 2. Small air-fluid level in the left maxillary sinus which may reflect acute sinusitis. RADIATION DOSE DELIVERED: 127.93mGy.cm Total DLP 127.93mGy.cm Total DLP DATA REPOSITORY: All CT scans at this facility are submitted to the National Radiology Data Registry (NRDR) Dose Index Registry (DIR) with the [employer] ([employer]). RADIATION OPTIMIZATION: All CT scans at this facility use at least one of these dose optimization te chniques: automated exposure control; mA and/or kV adjustment per patient size (includes targeted exa ms where dose is matched to clinical indication); or iterative reconstruction.
== END ==
PROVIDERS: PCP Family Medicine; Visit Provider Otolaryngology
DX: J32.4 Chronic pansinusitis (principal)
CPT/HCPCS: 70486

== ENCOUNTER → 2023-10-09 04:02 | Outpatient (CLI) | payer MEDICAID, SELFPAY ==
--- NOTE | 2023-10-09 14:00 | DI.MAMMO_ITS ---
Exam(s) MAMMO SCREENING EXAM: MAMMO SCREENING CLINICAL HISTORY: screening TECHNIQUE: Bilateral full field digital CC and MLO mammographic images were obtained with 3D tomosyn thesis and utilizing computer aided detection (CAD). COMPARISON: This is a baseline examination. FINDINGS: Masses/Architectural Distortion: None seen. Microcalcifications: No suspicious pleomorphic-type are seen. Skin Thickening/Nipple Retraction: None. IMPRESSION: 1. No evidence of malignancy is seen at this time. 2. Unless there is more urgent need, screening mammography is recommended, as per [employer] guidelines. BI-RADS Category 1 - Negative Breast Density - Category B - Scattered areas of fibroglandular density Breast density category C or D implies that the patient has dense breast tissue. Dense breast tissue is very common and is not abnormal but dense breast tissue can make it harder to find cancer on a ma mmogram. Also, dense breast tissue may increase their breast cancer risk. This information about the result of the mammogram report was provided to the patient to raise their awareness. Use this report when you speak with the patient about their risks for breast cancer, which includes their family hist ory. At that time, you may recommend for more screening tests (Ultrasound or MRI) as they might be us eful based on their risk. A negative radiographic report should not delay biopsy if a dominant or clinically suspicious mass is present. Up to ten percent of cancers are not identified on mammography. A negative report may reinforce clinical impression. Adenosis and dense breasts may obscure an underlying neoplasm. False positive reports average 6 to 10%. Patient will receive a letter notifying them of these results.
== END ==
PROVIDERS: PCP Family Medicine; Visit Provider Obstetrics & Gynecology
DX: Z12.31 Encounter for screening mammogram for malignant neoplasm of breast (principal)
CPT/HCPCS: 77063; 77067

== ENCOUNTER 2023-10-24 16:18 | Outpatient (REF) | payer MEDICAID, SELFPAY ==
[2023-10-24 21:38] LABS: Anion Gap 10.7 mmol/L (3-11); BUN 16 mg/dL (7-18); CO2 24.3 mmol/L (21.0-32.0); CREATININE 0.9 mg/dL (0.55-1.02); Calcium 9.2 mg/dL (8.5-10.1); Chloride 104 mmol/L (98-107); Estimated GFR 82.37 (mL/min/1.73m2); Glucose 86 mg/dL (74-106); Potassium 3.9 mmol/L (3.5-5.1); Sodium 139 mmol/L (136-145)
== END 2023-10-24 16:19 | disposition home or self-care (01) ==
LOC: NCHCN 16:18
PROVIDERS: PCP Family Medicine; Visit Provider Family Medicine
DX: E28.2 Polycystic ovarian syndrome (principal)
CPT/HCPCS: 80048

== ENCOUNTER 2024-10-28 01:57 | Outpatient (CLI) | payer MEDICAID, SELFPAY ==
--- NOTE | 2024-10-28 08:04 | DI.MAMMO_ITS ---
Exam(s) MAMMO SCREENING EXAM: MAMMO SCREENING CLINICAL HISTORY: screening TECHNIQUE: Bilateral full field digital CC and MLO mammographic images were obtained with 3D tomosyn thesis and utilizing computer aided detection (CAD). COMPARISON: Available for comparison. FINDINGS: Masses/Architectural Distortion: No suspicious masses or areas of architectural distortion are presen t. Microcalcifications: No suspicious pleomorphic-type are seen. Skin Thickening/Nipple Retraction: None. IMPRESSION: 1. No significant interval change with no specific features of malignancy noted. 2. Unless there is more urgent need, screening mammography is recommended, as per [employer] guidelines. BI-RADS Category 1 - Negative Breast Density - Category B - There are scattered areas of fibroglandular density. Breast density Category C or D implies that the patient has dense breast tissue. Dense breast tissue can make it harder to find cancer on a mammogram. Dense breast tissue is also associated with an incr eased risk of breast cancer. This information about the result of the mammogram report was provided to the patient to raise their awareness. Use this report when you speak with the patient about their risks for breast cancer, which includes their family history. At that time, you may recommend additional screening tests (Ultrasoun d or MRI) as these tests may add significant information. A negative radiographic report should not delay biopsy if a dominant or clinically suspicious mass is present. Up to ten percent of cancers are not identified on mammography. A negative report may reinforce clinical impression. Adenosis and dense breasts may obscure an underlying neoplasm. False positive reports average 6 to 10%. Patient will receive a letter notifying them of these results.
== END 2024-10-28 02:17 ==
LOC: DI 01:57
PROVIDERS: PCP Family Medicine; Visit Provider Obstetrics & Gynecology
DX: Z12.31 Encounter for screening mammogram for malignant neoplasm of breast (principal); R92.323 Mammographic fibroglandular density, bilateral breasts
CPT/HCPCS: 77063; 77067

== ENCOUNTER 2024-12-24 16:11 | Outpatient (REF) | payer MEDICAID, SELFPAY ==
[2024-12-24 19:40] LABS: Abs Immature Grans 0.02 10^3/uL (0.0-0.06); HCT 41.9 % (36.0-46.0); HGB 14.5 g/dL (11.2-15.7); Immature Grans % 0.2 %; MCH 30.6 pg (27.0-33.0); MCHC 34.6 % (32.0-36.0); MCV 88 fL (80-95); MPV 10.1 fL (8.0-11.0); Platelet Count 348 10^3/uL (130-400); RBC 4.74 10^6/uL (3.93-5.22); RDW 12.6 % (11.7-14.6); RDW-SD 40.7 fL; WBC 10.66 10^3/uL (4.4-10.8)
[2024-12-24 19:55] LABS: ALT 24 U/L (14-59); AST 15 U/L (15-37); Albumin 4.4 g/dL (3.4-5.0); Alkaline Phosphatase 74 U/L (46-116); Anion Gap 11.5 mmol/L (3-11); BUN 14 mg/dL (7-18); Bilirubin, Total 0.5 mg/dL (0.2-1.0); CO2 27.5 mmol/L (21.0-32.0); Calcium 9.5 mg/dL (8.5-10.1); Chloride 102 mmol/L (98-107); Estimated GFR 81.86 (mL/min/1.73m2); Glucose 94 mg/dL (74-106); Potassium 4.1 mmol/L (3.5-5.1); Sodium 141 mmol/L (136-145); Total Protein 7.1 g/dL (6.4-8.2)
== END 2024-12-24 16:12 | disposition home or self-care (01) ==
LOC: NCHCN 16:11
PROVIDERS: PCP Family Medicine; Visit Provider Family Medicine
DX: K22.0 Achalasia of cardia (principal); E28.2 Polycystic ovarian syndrome
CPT/HCPCS: 80053; 85025

== ENCOUNTER 2025-01-11 02:28 | Outpatient (CLI) | payer MEDICAID, SELFPAY ==
--- NOTE | 2025-01-11 07:32 | DI.RAD_ITS ---
Exam(s) RF BARIUM SWALLOW UGI EXAM: RF BARIUM SWALLOW UGI CLINICAL HISTORY: dysphagia, history achalasia s/p myotomy, CHRONIC NAUSEA TECHNIQUE: 2D and real-time digital imaging was performed. CONTRAST MATERIAL: Oral barium. No crystal COMPARISON: No exams were available for comparison FINDINGS: Performed standing and recumbent. ESOPHAGRAM: Swallowing mechanism is grossly intact. No penetration or aspiration. There is mild indentation of the posterior aspect of the barium column by anterior osteophytes at C6-7 level. There is no evidence of Zenker's diverticulum. The esophagus is not dilated but does exhibit irregularity d istally. There is no hiatal hernia evident, however, there is some holdup of the barium temporarily prior to entering the stomach. At no point during this examination did the GE junction open completely normally. There is a defect on the greater curvature of the stomach evident. This may be exaggerated by the less than optimal filling of the stomach. There is also less than optimal filling of the entire duodenal C-loop. The duodenal bulb and D2 level appear unremarkable. IMPRESSION: Abnormal appearance of the distal esophagus in this patient who has apparently had prior Heller myotomy for achalasia. There is no high-grade obstruction of the distal esophagus nor dilatation of the esophagus but there is consistent incomplete opening of the distal most esophagus and GE junction. Recommend endoscopy In addition, on a few images there is a filling defect in the greater curvature of the stomach. This may be exaggerated by under distension and should also be studied during endoscopy. RADIATION DOSE DELIVERED: lazara Vasquez= 145.0 mGy
[2025-01-11] MEDS: Barium Sulfate 60% W/V 355 ML BTL PO (11:49)
[2025-01-11] MEDS: Barium Sulfate 98% W/W 140 ML BTL PO (11:50)
== END 2025-01-11 02:48 ==
LOC: DI 02:28
PROVIDERS: PCP Family Medicine; Visit Provider Surgery
DX: K22.0 Achalasia of cardia (principal); R11.0 Nausea; R93.3 Abnormal findings on diagnostic imaging of other parts of digestive tract
CPT/HCPCS: 74221; 74246; J3490

== ENCOUNTER 2025-01-18 06:18 | Day surgery (SDC) | payer MEDICAID, SELFPAY ==
[2025-01-18 06:20] VITALS: BP 126/90; PULSE 87; RESP 16; TEMP 36.2; O2SAT 100
--- NOTE | 2025-01-18 06:22 | W.ANESPRE ---
General Info Height: 5 ft 6 in Weight: 81.647 kg Body Mass Index (BMI): 29.0 Surgical Procedure: Operation Date: 01/18/25 07:35 Proposed Procedure Side Surgeon p Colonoscopy/Gastroscopy w/Dilation Nan Mcpherson MD Meds Allergies and Home Medications Allergies Allergy/AdvReac Type Severity Reaction Status Date / Time Penicillins Allergy Severe Anaphylaxis Verified 01/18/25 06:44 Sulfa (Sulfonamide Allergy Severe Anaphylaxis Verified 01/18/25 06:44 Antibiotics) flu vax Allergy Severe Anaphylaxis Uncoded 01/18/25 06:44 Home Medication ?Medication ?Instructions ?Recorded metformin 500 mg tablet 1,000 mg PO BID 01/20/19 cyclobenzaprine 10 mg tablet 10 mg PO HS 11/21/21 spironolactone 100 mg tablet 100 mg PO DAILY 11/21/21 acetaminophen 500 mg tablet 1,000 mg (2 x 500 mg) PO TID #90 03/21/22 tabs cyanocobalamin (vitamin B-12) 250 250 mcg PO BID 03/27/22 mcg tablet (Vitamin B-12) pyridoxine (vitamin B6) 50 mg 50 mg PO BID 03/27/22 capsule (Vitamin B-6) ibuprofen 800 mg tablet 800 mg PO Q8H PRN #60 tabs 05/17/22 tramadol 50 mg tablet 50 mg PO DAILY PRN 07/05/23 diphenoxylate-atropine 2.5 1 tab PO TID PRN diarrhea #90 tabs 08/07/23 mg-0.025 mg tablet progesterone micronized 200 mg 200 mg PO QHS 12 months #90 caps 10/02/24 capsule (Prometrium) hyoscyamine sulfate 0.125 mg 0.125 mg PO BID-QID PRN 12/28/24 disintegrating tablet ketorolac 10 mg tablet 10 mg PO DAILY PRN 12/28/24 bisacodyl 5 mg tablet,delayed 5 mg PO ONCE #4 tabs 01/01/25 release (Dulcolax (bisacodyl)) polyethylene glycol 3350 17 17 g PO ONCE #238 grams 01/01/25 gram/dose oral powder Current Visit Medications: Current Medications Generic Name Dose Route Start Last Admin Trade Name Freq PRN Reason Stop Dose Admin Ringer's Solution 1,000 mls @ 80 mls/hr 01/18/25 06:00 IV 01/18/25 23:59 INFUSION JUAN F IV Miscellaneous Supplies 1 each 01/18/25 06:00 Iv Access IV 01/18/25 23:59 DIRECTED JUAN F Sodium Biphosphate/Sodium Phosphate 133 ml 01/18/25 06:00 Na Phosphate Enema-Adult 133 Ml Btl IN 01/18/25 23:59 DIRECTED PRN Sodium Chloride 0 ml 01/18/25 06:00 Normal Saline Flush 10 Ml Syr IV 01/18/25 23:59 PRN PRN Sodium Chloride 0 ml 01/18/25 06:00 Normal Saline 10 Ml Vial IJ 01/18/25 23:59 DIRECTED PRN Sterile Water 0 ml 01/18/25 06:00 Water,Injection,Sterile 10 Ml Vial IJ 01/18/25 23:59 DIRECTED PRN PFSH Active Problems Active Problems: Problem Status Onset Code Chronic nausea Acute R11.0 Chronic abdominal pain Acute R10.9, G89.29 Postprandial bloating Acute R14.0 Change in bowel habits Acute R19.4 Alternating constipation and diarrhea Acute R19.8 Chronic diarrhea of unknown origin Acute K52.9 Phlegm in throat Acute R09.89 Dysfunction of left eustachian tube Acute H69.92 Chronic sinusitis Acute J32.9 PMS (premenstrual syndrome) Acute N94.3 Status post laparoscopic assisted vaginal hysterectomy (LAVH) Acute Z90.710 Dysphagia Acute R13.10 Right carpal tunnel syndrome Acute G56.01 Achalasia Acute K22.0 Left foot pain Acute M79.672 Medical History Medical History Primary fibromyalgia Venous thrombosis Joint pain Pharyngeal dysphagia Obstruction of esophagus Abnormal weight Abdominal distension (gaseous) Dizziness and giddiness Lumbosacral radiculopathy Diarrhea Obesity Nausea Muscle pain Recurrent sinusitis Chronic anxiety IBS (irritable bowel syndrome) Situational anxiety Carpal tunnel syndrome Fibromyalgia Chronic diarrhea Skin lesion Hemorrhoid thrombosis Thrombosed external hemorrhoid Polycystic ovary syndrome Dysphagia barium swallow at [facility] on 01/21/19 severe narrowing of the distal esophagus. Referred to us by Dr Gomez, [facility], symptoms minimally better with pantoprazole. Medical History Comments:: pt. stated that she didn't do well with anesthesia gas (horrible chills and pain) Surgical History Surgical History H/O esophagogastroduodenoscopy (~02/02/19) History of adenoidectomy S/p bilateral myringotomy with tube placement History of carpal tunnel surgery of left wrist History of carpal tunnel release (03/21/22) History of section Tobacco Smoking/Tobacco Use Status: Never Passive smoking exposure: No Alcohol Alcohol Intake: never Substance Use Substance use: Never Substance use type: does not use Vital Signs and Lab Results Vital Signs Most Recent Vital Signs in EMR: Temp Pulse Resp BP Pulse Ox 36.2 C L 87 16 126/90 100 01/18/25 06:20 01/18/25 06:20 01/18/25 06:20 01/18/25 06:20 01/18/25 06:20 Lab Results Complete Blood Count: WBC, (4.4-10.8) 10.66 10^3/uL 12/24/24, 15:04 RBC, (3.93-5.22) 4.74 10^6/uL 12/24/24, 15:04 Hgb, (11.2-15.7) 14.5 g/dL 12/24/24, 15:04 Hct, (36.0-46.0) 41.9 % 12/24/24, 15:04 Plt Count, (130-400) 348 10^3/uL 12/24/24, 15:04 Complete Metabolic Panel: Sodium, (136-145) 141 mmol/L 12/24/24, 15:04 Potassium, (3.5-5.1) 4.1 mmol/L 12/24/24, 15:04 Chloride, (98-107) 102 mmol/L 12/24/24, 15:04 Carbon Dioxide, (21.0-32.0) 27.5 mmol/L 12/24/24, 15:04 BUN, (7-18) 14 mg/dL 12/24/24, 15:04 Creatinine, (0.55-1.02) 0.9 mg/dL 12/24/24, 15:04 Est GFR (CKD-EPI 2020), (mL/min/1.73m2) 81.86 12/24/24, 15:04 Calcium, (8.5-10.1) 9.5 mg/dL 12/24/24, 15:04 Albumin, (3.4-5.0) 4.4 g/dL 12/24/24, 15:04 Glucose, (74-106) 94 mg/dL 12/24/24, 15:04 Liver Function Panel: ALT, (14-59) 24 U/L 12/24/24, 15:04 AST, (15-37) 15 U/L 12/24/24, 15:04 Anesthesia Assessment and Plan Anesthesia History Personal History: Other Family History: No Family History of Anesthesia Complications Exercise Tolerance Exercise Tolerance: Metabolic Equivalents>4 Implantable Cardiac Device Does patient have a Pacemaker or an ICD?: No Airway Exam Known Difficult Airway: No Mallampati Class: 1 Mouth Opening: Normal (> 3cm) Thyromental Distance: Greater than 3 cm Neck Range of Motion: Full ROM Neck Circumference: Normal Teeth Condition: Normal Dentition ASA Classification ASA Score: ASA 2 Emergency Case?: No Anesthesia Plan Resuscitation Status: Full Code Anesthesia Technique: General Anesthesia Airway Planned: Natural Airway Monitors Used: Standard Monitors Preoperative Comments:: 44 yo female for egd/colo. Sig PMHx: achalasia/dysphagia, fibromyalgia, anxiety, never smoker/EtOH. Previous Anes: - hysterectomy, spinal (shallow depth), GA, loza 2, 2b. no issues. - ECTR, prop/ketamine, natural airway, no issues. - perirectal abcess, glide 3 grade 1, no issues. - ECTR, GAETT with RSI, mac 3 grade 2b, no issues.
--- NOTE | 2025-01-18 07:05 | W.ANESPRE ---
General Info Date of Service Date Performed: 01/18/25 Height: 5 ft 6 in Weight: 81.647 kg Body Mass Index (BMI): 29.0 Surgical Procedure: Operation Date: 01/18/25 07:35 Proposed Procedure Side Surgeon p Colonoscopy/Gastroscopy w/Dilation Nan Mcpherson MD Meds Allergies and Home Medications Allergies Allergy/AdvReac Type Severity Reaction Status Date / Time Penicillins Allergy Severe Anaphylaxis Verified 01/18/25 06:44 Sulfa (Sulfonamide Allergy Severe Anaphylaxis Verified 01/18/25 06:44 Antibiotics) flu vax Allergy Severe Anaphylaxis Uncoded 01/18/25 06:44 Home Medication ?Medication ?Instructions ?Recorded metformin 500 mg tablet 1,000 mg PO BID 01/20/19 cyclobenzaprine 10 mg tablet 10 mg PO HS 11/21/21 spironolactone 100 mg tablet 100 mg PO DAILY 11/21/21 acetaminophen 500 mg tablet 1,000 mg (2 x 500 mg) PO TID #90 03/21/22 tabs cyanocobalamin (vitamin B-12) 250 250 mcg PO BID 03/27/22 mcg tablet (Vitamin B-12) pyridoxine (vitamin B6) 50 mg 50 mg PO BID 03/27/22 capsule (Vitamin B-6) ibuprofen 800 mg tablet 800 mg PO Q8H PRN #60 tabs 05/17/22 tramadol 50 mg tablet 50 mg PO DAILY PRN 07/05/23 diphenoxylate-atropine 2.5 1 tab PO TID PRN diarrhea #90 tabs 08/07/23 mg-0.025 mg tablet progesterone micronized 200 mg 200 mg PO QHS 12 months #90 caps 10/02/24 capsule (Prometrium) hyoscyamine sulfate 0.125 mg 0.125 mg PO BID-QID PRN 12/28/24 disintegrating tablet ketorolac 10 mg tablet 10 mg PO DAILY PRN 12/28/24 bisacodyl 5 mg tablet,delayed 5 mg PO ONCE #4 tabs 01/01/25 release (Dulcolax (bisacodyl)) polyethylene glycol 3350 17 17 g PO ONCE #238 grams 01/01/25 gram/dose oral powder Current Visit Medications: Current Medications Generic Name Dose Route Start Last Admin Trade Name Freq PRN Reason Stop Dose Admin Ringer's Solution 1,000 mls @ 80 mls/hr 08/04/25 06:00 IV 01/18/25 23:59 INFUSION JUAN F IV Miscellaneous Supplies 1 each 01/18/25 06:00 Iv Access IV 01/18/25 23:59 DIRECTED JUAN F Sodium Biphosphate/Sodium Phosphate 133 ml 01/18/25 06:00 Na Phosphate Enema-Adult 133 Ml Btl PA 01/18/25 23:59 DIRECTED PRN Sodium Chloride 0 ml 01/18/25 06:00 Normal Saline Flush 10 Ml Syr IV 01/18/25 23:59 PRN PRN Sodium Chloride 0 ml 01/18/25 06:00 Normal Saline 10 Ml Vial IJ 01/18/25 23:59 DIRECTED PRN Sterile Water 0 ml 01/18/25 06:00 Water,Injection,Sterile 10 Ml Vial IJ 01/18/25 23:59 DIRECTED PRN PFSH Active Problems Active Problems: Problem Status Onset Code Chronic nausea Acute R11.0 Chronic abdominal pain Acute R10.9, G89.29 Postprandial bloating Acute R14.0 Change in bowel habits Acute R19.4 Alternating constipation and diarrhea Acute R19.8 Chronic diarrhea of unknown origin Acute K52.9 Phlegm in throat Acute R09.89 Dysfunction of left eustachian tube Acute H69.92 Chronic sinusitis Acute J32.9 PMS (premenstrual syndrome) Acute N94.3 Status post laparoscopic assisted vaginal hysterectomy (LAVH) Acute Z90.710 Dysphagia Acute R13.10 Right carpal tunnel syndrome Acute G56.01 Achalasia Acute K22.0 Left foot pain Acute M79.672 Medical History Medical History Primary fibromyalgia Venous thrombosis Joint pain Pharyngeal dysphagia Obstruction of esophagus Abnormal weight Abdominal distension (gaseous) Dizziness and giddiness Lumbosacral radiculopathy Diarrhea Obesity Nausea Muscle pain Recurrent sinusitis Chronic anxiety IBS (irritable bowel syndrome) Situational anxiety Carpal tunnel syndrome Fibromyalgia Chronic diarrhea Skin lesion Hemorrhoid thrombosis Thrombosed external hemorrhoid Polycystic ovary syndrome Dysphagia barium swallow at [facility] on 01/21/19 severe narrowing of the distal esophagus. Referred to us by Dr Gomez, [facility], symptoms minimally better with pantoprazole. Medical History Comments:: pt. stated that she didn't do well with anesthesia gas (horrible chills and pain) Surgical History Surgical History H/O esophagogastroduodenoscopy (~02/02/19) History of adenoidectomy S/p bilateral myringotomy with tube placement History of carpal tunnel surgery of left wrist History of carpal tunnel release (03/21/22) History of section Tobacco Smoking/Tobacco Use Status: Never Passive smoking exposure: No Alcohol Alcohol Intake: never Substance Use Substance use: Never Substance use type: does not use Vital Signs and Lab Results Vital Signs Most Recent Vital Signs in EMR: Most Recent Vital Signs Temp Pulse Resp BP Pulse Ox 36.2 C L 87 16 126/90 100 01/18/25 06:20 01/18/25 06:20 01/18/25 06:20 01/18/25 06:20 01/18/25 06:20 Lab Results Complete Blood Count: WBC, (4.4-10.8) 10.66 10^3/uL 12/24/24, 15:04 RBC, (3.93-5.22) 4.74 10^6/uL 12/24/24, 15:04 Hgb, (11.2-15.7) 14.5 g/dL 12/24/24, 15:04 Hct, (36.0-46.0) 41.9 % 12/24/24, 15:04 Plt Count, (130-400) 348 10^3/uL 12/24/24, 15:04 Complete Metabolic Panel: Sodium, (136-145) 141 mmol/L 12/24/24, 15:04 Potassium, (3.5-5.1) 4.1 mmol/L 12/24/24, 15:04 Chloride, (98-107) 102 mmol/L 12/24/24, 15:04 Carbon Dioxide, (21.0-32.0) 27.5 mmol/L 12/24/24, 15:04 BUN, (7-18) 14 mg/dL 12/24/24, 15:04 Creatinine, (0.55-1.02) 0.9 mg/dL 12/24/24, 15:04 Est GFR (CKD-EPI 2020), (mL/min/1.73m2) 81.86 12/24/24, 15:04 Calcium, (8.5-10.1) 9.5 mg/dL 12/24/24, 15:04 Albumin, (3.4-5.0) 4.4 g/dL 12/24/24, 15:04 Glucose, (74-106) 94 mg/dL 12/24/24, 15:04 Liver Function Panel: ALT, (14-59) 24 U/L 12/24/24, 15:04 AST, (15-37) 15 U/L 12/24/24, 15:04 Anesthesia Assessment and Plan Anesthesia History Personal History: Other Family History: No Family History of Anesthesia Complications Exercise Tolerance Exercise Tolerance: Metabolic Equivalents>4 Pertinent Negatives Pertinent Negatives: No Symptoms of GERD Cardiac & Pulmonary Exam Cardiac Exam: Normal S1/S2 Heart Sounds Pulmonary Exam: Clear Bilateral Breath Sounds Implantable Cardiac Device Does patient have a Pacemaker or an ICD?: No Airway Exam Known Difficult Airway: No Mallampati Class: 1 Mouth Opening: Normal (> 3cm) Thyromental Distance: Greater than 3 cm Neck Range of Motion: Full ROM Neck Circumference: Normal Teeth Condition: Normal Dentition ASA Classification ASA Score: ASA 2 Emergency Case?: No NPO Status NPO Status: NPO Clears >2 hours, Solids >8 hours Status Status: History of Hysterectomy Anesthesia Plan Resuscitation Status: Full Code Anesthesia Technique: General Anesthesia Airway Planned: Natural Airway Monitors Used: Standard Monitors
[2025-01-18 07:07] VITALS: BMI 29.0
[2025-01-18] MEDS: Lactated Ringers 1,000 ML 80 ML IV (07:26)
--- NOTE | 2025-01-18 07:40 | BOWEL_PTH ---
PATIENT: Sugey Rodney I LOC: [facility] U#:[id number] AGE/SX: 44/F ROOM: RE01/18/[address]: Nan Mcpherson MD : 1980 BED: DIS: 01/18/2025 SPEC #: [id number] RECD: 01/18/25 12:52 STATUS: JOSIAS RE #: [id number] SARINA: 01/18/25 07:[address]: Nan Mcpherson DEPT: Surgical Specimen RECD BY: Jyoti Cardenas ENTERED: 01/18/25 12:53 SP TYPE: Bowel OTHR DR: Sriram Lofton Tissues: 1 - STOMACH BIOPSY 2 - BIOPSY BOWEL 3 - BIOPSY BOWEL 4 - BIOPSY BOWEL 5 - BIOPSY BOWEL 6 - BIOPSY BOWEL Procedures: GROSS AND MICRO LEVEL 4 Comments: [id number]
--- NOTE | 2025-01-18 08:27 | W.PM.DSUDISC ---
Date of service: 01/18/25 Discharge Plan Disposition Patient Disposition: Home Condition: Stable Discharge Details Attending Provider: Nan Mcpherson Primary Care Provider: Sriram Lofton Home Meds and New Rx's Prescriptions: Continued spironolactone 100 mg tablet 100 mg PO DAILY cyanocobalamin (vitamin B-12) [Vitamin B-12] 250 mcg tablet 250 mcg PO BID Patient Comments: 03/26/22- pt unsure of dose Vitamin B-6 50 mg capsule 50 mg PO BID Patient Comments: 03/26/22- pt unsure of dose progesterone micronized [Prometrium] 200 mg capsule 200 mg PO QHS 360 Days Qty: 90 3RF metformin 500 mg tablet 1,000 mg PO BID tramadol 50 mg tablet 50 mg PO DAILY PRN diphenoxylate-atropine 2.5-0.025 mg tablet 1 tab PO TID PRN (Reason: diarrhea) Qty: 90 0RF Rx Instructions: PLease have patient get next refill from her PCP as we haven't seen her since 12/2021 ketorolac 10 mg tablet 10 mg PO DAILY PRN Rx Instructions: maximum total duration of 5 days from all oral, intranasal, or parenteral formulations hyoscyamine sulfate 0.125 mg tablet,disintegrating 0.125 mg PO BID-QID PRN ibuprofen 800 mg tablet 800 mg PO Q8H PRNQty: 60 1RF cyclobenzaprine 10 mg Tablet 10 mg PO HS acetaminophen 500 mg tablet 1,000 mg PO TID Qty: 90 0RF Discontinued bisacodyl [Dulcolax (bisacodyl)] 5 mg tablet,delayed release (DR/EC) 5 mg PO ONCE Qty: 4 0RF Rx Instructions: Take per colonoscopy instructions provided by ordering providers office polyethylene glycol 3350 17 gram/dose powder 17 g PO ONCE Qty: 238 0RF Rx Instructions: Take per colonoscopy instructions provided by ordering providers office Discharge Instructions Activity:: Activity as Tolerated Diet:: As Tolerated Discharge Orders Discharge Orders: Discharge Order (Routine); Ordered 01/18/25 Ordered By: Nan Mcpherson DS: Diagnosis Discharge Diagnosis (1) Achalasia: Status: Acute Asessment and Plan: EGD shows tight lower esophagus, suspicious for recurrent achalasia. I dilated today. lets see if your symptoms improve. More dilation can be done, or we could send you for achalasia recurrence testing and see what surgical options exist since you had good outcome early on with surgery. I recommend dilation for now. At your follow up we will discuss more. (2) Dysphagia: Status: Acute (3) Chronic diarrhea of unknown origin: Status: Acute Asessment and Plan: Colonoscopy is normal. Colon biopsies obtained to look for microscopic problems. We will review these in office. (4) Alternating constipation and diarrhea: Status: Acute (5) Chronic nausea: Status: Acute (6) Chronic abdominal pain: Status: Acute
[2025-01-18 08:28] VITALS: BP 126/90; PULSE 87; RESP 16; TEMP 36.2; O2SAT 100
--- NOTE | 2025-01-18 08:41 | W.ANESPOSTOP ---
Postoperative Evaluation Date, Time and Location Date Performed: 01/18/25 Time Performed: 08:42 Patient Location: Day Surgery Unit Vital Signs Most Recent Imported Vital Signs: Most Recent Vital Signs Temp Pulse Resp BP Pulse Ox 36.2 C L 87 16 126/90 100 01/18/25 06:20 01/18/25 06:20 01/18/25 06:20 01/18/25 06:20 01/18/25 06:20 Most Recent Manually Entered Vital Signs: Adult Blood Pressure: 93/55 Heart Rate: 74 Respirations: 16 Oxygen Saturation (%): 99 Temperature (C): 36.3 C Pain Score (0-10 Scale): 0 Pain Score Most Recent Pain Score: Most Recent Pain Score Pain Level 2 01/18/25 06:20 Assessment Mental Status: Awake (Alert & Oriented to Patient Baseline) Airway and Respiratory Function: Patent airway with normal (patient baseline) respiratory exam Cardiovascular Function: Hemodynamically Stable Hydration Status: Adequately Hydrated Nausea & Vomiting: No Nausea or Vomiting Pain: Pt. Denies Any Pain Peripheral Nerve Block: Patient did not receive a nerve block
[2025-01-18 08:43] VITALS: BP 93/55; PULSE 74; RESP 16; TEMPC 36.3; O2SAT 99
[2025-01-18 09:05] VITALS: BP 113/83; PULSE 67; RESP 16; TEMP 36.2; O2SAT 98
--- NOTE | 2025-01-18 11:20 | W.PM.ENDDOP ---
Date of service: 01/18/25 Time of Service: 08: Endoscopy Report DATE OF PROCEDURE: 01/18/25 PRE-OP DIAGNOSIS: Achalasia, dysphasia, chronic nausea POST-OP DIAGNOSIS: other (achalasia, dysphagia, chronic nausea) PROCEDURE: EGD with biopsy and dilation of distal esophagus SURGEON: Nan Mcpherson ANESTHESIA TYPE: MAC ESTIMATED BLOOD LOSS: 2 PATHOLOGY: other (1. antrum ) DISPOSITION: same day PROCEDURE DESCRIPTION: A lubricated endoscope was passed from the mouth through a bite block into the second portion of the duodenum. The endoscope was withdrawn and the duodenal mucosa examined the gastric mucosa was examined the esophagus was examined. The duodenum appeared normal. There was no ulceration or inflammatory change. The antrum, fundus, and cardia of the stomach appeared normal. Given the chronic symptoms, antrum biopsy was obtained with cold forceps for Helicobacter pylori testing. The scope was retroflexed, there is evidence of prior gastric surgery. The gastroesophageal junction was present at 37 cm from the teeth. It does not appear inflamed. It does not appear strictured. There is tight narrowing that is abrupt. This seems most consistent with achalasia. Balloon dilation was performed using sequential balloon dilator. The stenotic spasmed esophagus was dilated to 15 mm, then 16.5 mm, then 18 mm. Cracking of the mucosa was noted. No complications. The remainder of the esophagus appeared normal. Assessment and plan: Findings of distal esophageal narrowing and spasm are consistent with recurrent achalasia. Dilation was performed today. Follow-up in the office as scheduled to review symptoms. Repeat dilation can be performed. Alternatively we can review and discuss referral back to her surgeon for revision myotomy or other intervention. Continue PPI. I will follow-up on the H. pylori biopsy result.
--- NOTE | 2025-01-18 11:25 | COLE_ITS ---
Date of service: 01/18/25 Time of Service: 08: Colonoscopy Report Date of procedure: 01/18/25 Pre-op diagnosis general: Chronic diarrhea, chronic abdominal pain, change in bowel habits Post-op diagnosis procedure note: same Procedure: Colonoscopy with biopsy Surgeon: Nan Mcpherson Anesthesia Type: MAC Estimated blood loss (mL): 1 Pathology: other (1. Terminal ileum. 2. Ascending colon. 3. Transverse colon. 4. Descending colon. 5. Rectum) Prep: Miralax/Dulcolax Procedure Description: Informed consent was obtained and the patient was taken to the procedure area. The patient was placed in left lateral decubitus position on the procedure table. Timeout was performed. Anesthesia was induced. A lubricated colonoscope was inserted through the anus and passed to the cecum. The cecum was identified by the ileocecal valve and the appendiceal orifice. The scope was then slowly withdrawn and the colonic and rectal mucosa examined. TI intubated and appears normal. There are no colon or rectal mass lesions, polyps, AVMs. There is no inflammatory change. No diverticulosis was seen. The scope was retroflexed in the anorectal junction examined. Uncomplicated internal hemorrhoids present. Cold forceps biopsies obtained for evaluation for microscopic colitis. Biopsies obtained from terminal ileum, ascending colon, transverse colon, descending colon and rectum. Assessment and plan; Normal colonoscopy. No findings on exam to explain her symptoms. Will follow- up on biopsy results in office, patient already has an appointment scheduled. Next screening colonoscopy will be due in 10 years.
== END 2025-01-18 09:15 | disposition home or self-care (01) ==
PROVIDERS: PCP Family Medicine; Visit Provider Surgery
PROC: (CPT 43245; principal; 2025-01-18 07:30)
DX: K22.0 Achalasia of cardia (principal); R13.10 Dysphagia, unspecified; K52.9 Noninfective gastroenteritis and colitis, unspecified; R19.8 Other specified symptoms and signs involving the digestive system and abdomen; R11.0 Nausea; R10.9 Unspecified abdominal pain; G89.29 Other chronic pain; K63.5 Polyp of colon; K62.1 Rectal polyp
CPT/HCPCS: 43245; 45380; 43239; 88305; J2405; J2704

== ENCOUNTER 2025-01-19 01:59 | Outpatient (CLI) | payer MEDICAID, SELFPAY ==
--- NOTE | 2025-01-19 06:45 | DI.US_ITS ---
Exam(s) US ABDOMEN EXAM: US ABDOMEN CLINICAL HISTORY: postprandial abd pain, nausea,r11.0,r10.9,r14.0,abd distension TECHNIQUE: Ultrasound abdomen performed using standard protocol. COMPARISON: CR,RF RF BARIUM SWALLOW UGI from 01/11/2025 FINDINGS: ABDOMINAL AORTA AND IVC: Visualized portions normal caliber. PANCREAS: Normal where visualized. LIVER: Normal. Hepatopetal flow in the Portal Vein. No evidence of a hepatic mass. The liver measures 13.3cm long. GALLBLADDER:No evidence of cholelithiasis. No evidence of wall thickening. No pericholecystic fluid identified. BILIARY SYSTEM: Common bile duct measures < 7 mm. No intrahepatic biliary ductal dilation. LITTLE'S SIGN: Negative. KIDNEYS: Kidneys are symmetric in size. No evidence of renal calculi. No evidence of hydronephrosis. No renal mass or cyst identified. SPLEEN: Not enlarged. ASCITES: None seen. IMPRESSION: Normal sonographic appearance of the upper abdomen. DATA REPOSITORY:
== END 2025-01-19 02:19 ==
LOC: DI 02:00
PROVIDERS: PCP Family Medicine; Visit Provider Surgery
DX: R19.4 Change in bowel habit (principal); R14.0 Abdominal distension (gaseous); G89.29 Other chronic pain; R11.0 Nausea
CPT/HCPCS: 76700

== ENCOUNTER 2025-01-19 07:56 | Outpatient (CLI) | payer MEDICAID, SELFPAY ==
[2025-01-19 07:40] LABS: ESR 1 mm/hr (0-20)
[2025-01-19 07:42] LABS: Abs Immature Grans 0.03 10^3/uL (0.0-0.06); HCT 42.0 % (36.0-46.0); HGB 14.3 g/dL (11.2-15.7); Immature Grans % 0.4 %; MCH 31.0 pg (27.0-33.0); MCHC 34.0 % (32.0-36.0); MCV 91 fL (80-95); MPV 9.7 fL (8.0-11.0); Platelet Count 344 10^3/uL (130-400); RBC 4.62 10^6/uL (3.93-5.22); RDW 12.8 % (11.7-14.6); RDW-SD 41.9 fL; WBC 7.83 10^3/uL (4.4-10.8)
[2025-01-19 09:11] LABS: ALT 28 U/L (14-59); AST 16 U/L (15-37); Albumin 4.3 g/dL (3.4-5.0); Alkaline Phosphatase 74 U/L (46-116); Anion Gap 5.0 mmol/L (3-11); BUN 14 mg/dL (7-18); Bilirubin, Direct 0.1 mg/dL (0.0-0.2); Bilirubin, Total 0.5 mg/dL (0.2-1.0); C-Reactive Protein < 0.50 mg/dL (<or=0.5); CO2 32.0 mmol/L (21.0-32.0); Calcium 9.5 mg/dL (8.5-10.1); Chloride 101 mmol/L (98-107); Estimated GFR 72.13 (mL/min/1.73m2); Glucose 93 mg/dL (74-106); Lipase 31 U/L (<78); Potassium 4.5 mmol/L (3.5-5.1); Sodium 138 mmol/L (136-145); Total Protein 7.2 g/dL (6.4-8.2)
[2025-01-20 20:29] LABS: Gliadin (Deamidated) Ab, IgA <10.0 U
[2025-01-20 20:34] LABS: Galactose-alpha-1,3 IgE 0.79 kU/L (<0.70)
== END 2025-01-19 07:57 | disposition home or self-care (01) ==
LOC: LBO 07:59
PROVIDERS: PCP Family Medicine; Visit Provider Surgery
DX: K52.9 Noninfective gastroenteritis and colitis, unspecified (principal); R19.8 Other specified symptoms and signs involving the digestive system and abdomen; R19.4 Change in bowel habit; R14.0 Abdominal distension (gaseous); R10.9 Unspecified abdominal pain; G89.29 Other chronic pain; R11.0 Nausea; R13.10 Dysphagia, unspecified; K22.0 Achalasia of cardia
CPT/HCPCS: 36415; 80048; 80076; 83516; 83690; 85652; 86003; 85025; 86140